=== PATIENT | female | born 1985 | race Two or more races ===

== ENCOUNTER 2020-05-16 17:28 | Outpatient (REF) | payer OTHER, SELFPAY | END 2020-05-16 17:29 | disposition home or self-care (01) | LOC: HO.LAB 17:28 | PROVIDERS: Visit Provider Internal Medicine | DX: Z20.828 Contact with and (suspected) exposure to other viral communicable diseases (principal) | CPT/HCPCS: C9803; U0003 ==

== ENCOUNTER 2020-07-18 11:10 | Outpatient (REF) | payer OTHER, SELFPAY | END 2020-07-18 11:11 | disposition home or self-care (01) | LOC: HO.LAB 11:10 | PROVIDERS: Visit Provider Internal Medicine | DX: Z20.822 Contact with and (suspected) exposure to COVID-19 (principal) | CPT/HCPCS: 36415; C9803; U0003 ==

== ENCOUNTER 2020-07-30 09:18 | Emergency (ER) | payer OTHER, SELFPAY ==
[2020-07-30 10:04] VITALS: BP 111/66; PULSE 70; RESP 16; TEMP 35.7; O2SAT 99; BMI 28.3
--- NOTE | 2020-07-30 10:26 | ED_ITS ---
HPI - Back Pain/Injury General Chief Complaint: Back Pain/Injury <Gil Coronel NP - Last Filed: 07/30/20 11:50> Stated Complaint: sciatic pain <Gil Coronel NP - Last Filed: 07/30/20 11:50> Time Seen by Provider: 07/30/20 10:18 <Gil Coronel NP - Last Filed: 07/30/20 11:50> Source: patient <Gil Coronel NP - Last Filed: 07/30/20 11:50> Mode of arrival: ambulatory <Gil Coronel NP - Last Filed: 07/30/20 11:50> Limitations: no limitations <Gil Coronel NP - Last Filed: 07/30/20 11:50> History of Present Illness HPI Narrative: Slip and fall on ice this morning resulting in pain in the right buttock/hip area. Denies any prodromal symptoms or other injury. <Gil Coronel NP - Last Filed: 07/30/20 11:50> MD elicited complaint: fall <Gil Coronel NP - Last Filed: 07/30/20 11:50> Pertinent past history: prior back pain <Gil Coronel NP - Last Filed: 07/30/20 11:50> Timing: intermittent <Gil Coronel NP - Last Filed: 07/30/20 11:50> Similar Symptoms Previously: Yes <Gil Coronel NP - Last Filed: 07/30/20 11:50> Radiation: none <Gil Coronel NP - Last Filed: 07/30/20 11:50> Relieving factors: none <Gil Coronel NP - Last Filed: 07/30/20 11:50> Associated symptoms: denies other symptoms <Gil Coronel NP - Last Filed: 07/30/20 11:50> Work related injury: No <Gil Coronel NP - Last Filed: 07/30/20 11:50> Related Data Home Medications: Previous Rx's Medication Instructions Recorded clonazepam 1 mg tablet 1 mg PO DAILY PRN 30 Days #30 tab 07/28/20 tramadol 50 mg tablet 50 mg PO TID PRN 30 Days #90 tab 07/28/20 cyclobenzaprine 5 mg PO TID PRN #14 tab 07/30/20 ibuprofen 800 mg PO Q8H PRN #15 tab 07/30/20 <Gilcristopher Coronel [employer] - Last Filed: 07/30/20 11:50> Allergies/Adverse Reactions: Allergies Allergy/AdvReac Type Severity Reaction Status Date / Time No Known Allergies Allergy Verified 07/07/20 08:45 [No Known Allergies*] <Gilcristopher Coronel [employer] - Last Filed: 07/30/20 11:50> Review of Systems Review of Systems: Constitutional: No Weight loss, No Fever, No Chills, No Night Sweats, No Fatigue, No Malaise ENT/Mouth: No Hearing loss, No Ear Pain, No Nasal Congestion, No Sinus Pain, No Hoarseness, No sore throat, No Rhinorrhea, No Swallowing Difficulty Eyes: Negative Cardiovascular: No Chest Pain, No SOB, No Dyspnea on Exertion, No Orthopnea, No Edema, No Palpitations Respiratory: Negative Gastrointestinal: Negative Genitourinary: Negative Musculoskeletal: No joint pain, No Myalgias, No Joint Swelling Skin: No Skin Lesions, No rash Neuro: No Weakness, No Numbness, No Paresthesias, No Loss of Consciousness, No Dizziness, No Headache Psych: Negative Heme/Lymph: Negative Endocrine: Negative <Gilcristopher Coronel NP - Last Filed: 07/30/20 11:50> Yes all other systems are reviewed and are negative <Gilcristopher Coronel [employer] - Last Filed: 07/30/20 11:50> PMFSH Past Medical History Medical History: Medical History (Updated 07/31/20 @ 00:00 by Alphonse Greco) Knee pain Sciatica <Gil Coronel [employer] - Last Filed: 07/30/20 11:50> Surgical History: Surgical History No pertinent past surgical history <Gilcristopher Coronel NP - Last Filed: 07/30/20 11:50> Family History Family History: Family History (Updated 06/11/20 @ 07:49 by Mecca Manzano [facility]) Father Medical history unknown Mother Hypertension Family/Other Hypertension Diabetes <Gilcristopher Coronel [employer] - Last Filed: 07/30/20 11:50> Physical Exam Vital Signs: Vital Signs: Last Vital Signs Temp 96.3 F L 07/30/20 10:04 Pulse 70 07/30/20 10:04 Resp 16 07/30/20 10:04 BP 111/66 07/30/20 10:04 Pulse Ox 99 07/30/20 10:04 Body Mass Index 28.3 Reviewed <Gil Coronel NP - Last Filed: 07/30/20 11:50> Vital Signs: Last Vital Signs Temp 96.3 F L 07/30/20 10:04 Pulse 70 07/30/20 10:04 Resp 16 07/30/20 10:04 BP 111/66 07/30/20 10:04 Pulse Ox 99 07/30/20 10:04 Body Mass Index 28.3 <Apollo Dietrich MD - Last Filed: 08/06/20 07:59> Const: General: cooperative and healthy appearing; No acute distress or intoxicated appearing <Gil Coronel NP - Last Filed: 07/30/20 11:50> Nutritional Appearance: average body habitus <Gil Coronel NP - Last Filed: 07/30/20 11:50> Orientation/consciousness: patient oriented x3 <Gil Coronel NP - Last Filed: 07/30/20 11:50> HENMT: Head: Yes normal to inspection <Gil Coronel NP - Last Filed: 07/30/20 11:50> Ears: hearing grossly normal bilaterally <Gil Coronel NP - Last Filed: 07/30/20 11:50> Eyes: General: appearance normal, both eyes and all related structures <Gil Coronel NP - Last Filed: 07/30/20 11:50> Visual Cook: normal visual cook by confrontation <Gil Coronel NP - Last Filed: 07/30/20 11:50> Neck: Neck: Yes normal visual inspection, No positive Brudzinski's sign, No positive Kernig's sign and No tender <Gil Coronel NP - Last Filed: 07/30/20 11:50> Thyroid: Thyroid normal <Gil Coronel NP - Last Filed: 07/30/20 11:50> Resp: Effort & Inspection: normal respiratory effort <Gil Coronel NP - Last Filed: 07/30/20 11:50> Cardio: Jugular venous distension: no JVD <[facility] CoronelJOSLYN ramirez - Last Filed: 07/30/20 11:50> GI: Inspection: Yes normal to inspection <[facility] CoronelJOSLYN ramirez - Last Filed: 07/30/20 11:50> Percussion: Yes normal to percussion <[facility] CoronelJOSLYN ramirez - Last Filed: 07/30/20 11:50> Auscultation: normal bowel sounds <Gil CoronelJOSLYN ramirez - Last Filed: 07/30/20 11:50> : General: Yes no CVA tenderness <[facility] CoronelJOSLYN ramirez - Last Filed: 07/30/20 11:50> Back/Spine/Pelvis: Back: no CVA tenderness <[facility] CoronelJOSLYN ramirez - Last Filed: 07/30/20 11:50> Skin: General skin exam: no rashes or lesions noted <[facility] JOSLYN Coronel - Last Filed: 07/30/20 11:50> Neuro: General: patient oriented x3 <Gilcristopher Coronel NP - Last Filed: 07/30/20 11:50> Extrem: General: Yes normal to inspection <[facility] CoronelJOSLYN ramirez - Last Filed: 07/30/20 11:50> Course Course Course Narrative: I have reviewed the chart <Apollo Dietrich MD - Last Filed: 08/06/20 07:59> MDM - Back Pain/Injury MDM Narrative Medical decision making narrative: Will nontoxic appearing. Ambulatory with steady straight gait. X-ray without acute findings. <Gilcristopher Coronel NP - Last Filed: 07/30/20 11:50> Differential Diagnosis Differential diagnosis: Likely strain of lumbar region; Unlikely lumbar radiculopathy, sciatica, renal colic, pyelonephritis, thoracic back pain, AAA and discitis <Gil JOSLYN Coronel - Last Filed: 07/30/20 11:50> Medical Records Attestation: I reviewed the patient's medical records. <Gilcristopher Coronel NP - Last Filed: 07/30/20 11:50> Lab Data Attestation: I reviewed the patient's lab results. <Gilcristopher Coronel NP - Last Filed: 07/30/20 11:50> Imaging Data Pelvis/hip: Radiologist's impression: [address], [place] [id number] ReportSigned Patient: Aziza AndersonMR#: [id number]: [id number]:[id number]/Sex: 34 / FADM Date: 07/30/20Loc: HO.EDAttending Dr: Ordering Physician: Gil Coronel NP Date of Service: 07/30/20 Procedure(s): XR hip RT w PEL1V Accession Number(s): [id number] cc: Gil Coronel NP~ EXAMINATION: XR HIP, RIGHT CLINICAL INFORMATION: Status post fall. COMPARISON: None TECHNIQUE: Two views of the right hip. AP view pelvis FINDINGS: AP pelvis: There is normal symmetry of bilateral hip joints and SI joints. No visible acute fracture, dislocation or lytic process seen. The soft tissues are normal. Right hip: No visible fracture, dislocation or subluxation seen. No bony abnormality. The joint spaces are intact. The soft tissues are normal. Incidental pelvic IUD noted. XR/XR hip RT w PEL1V IMPRESSION: Unremarkable right hip and pelvic exam. Dictated By:SAVANA PHILIPPE MDSigned By:<Electronically signed by SAVANA PHILIPPE MD in OV>07/30/20 1120 DD/ 1024TD/TT: Director Of Student Financial Aid: YOVANNY <Gil Coronel NP - Last Filed: 07/30/20 11:50> Discharge Plan Discharge Clinical Impression: Fall, Contusion <Gil Coronel NP - Last Filed: 07/30/20 11:50> Patient Disposition: Home, Self-Care <Gil Coronel NP - Last Filed: 07/30/20 11:50> Instructions: Contusion in Adults (ED), Fall Prevention (ED) <Gil Coronel NP - Last Filed: 07/30/20 11:50> Additional Instructions: Gentle stretching Warm compresses Take medication prescribed No drinking alcohol or operate a motor vehicle while taking muscle relaxants as the kentrell is sleepy and drowsy Return if any concerns or worsening symptoms otherwise follow-up as instructed Thank you <Gil Coronel NP - Last Filed: 07/30/20 11:50> Prescriptions: New ibuprofen 800 mg tablet 800 mg PO Q8H PRN (Reason: pain) Qty: 15 RF: 0 cyclobenzaprine 5 mg tablet 5 mg PO TID PRN (Reason: muscle spasm) Qty: 14 RF: 0 No Action tramadol 50 mg tablet 50 mg PO TID PRN (Reason: pain) 30 Days Qty: 90 RF: 0 clonazepam 1 mg tablet 1 mg PO DAILY PRN (Reason: anxiety) 30 Days Qty: 30 RF: 0 <Gil Coronel NP - Last Filed: 07/30/20 11:50> Referrals: Iftikhar Alvarez MD [Primary Care Provider] - 1 week <Gil Coronel NP - Last Filed: 07/30/20 11:50> Stand Alone Forms: Work/School Release <Gil Coronel NP - Last Filed: 07/30/20 11:50> Interventions: ED Discharge Assessment Last Done: 07/30/20 11:46 <Gil Coronel NP - Last Filed: 07/30/20 11:50> Discharge Date/Time: 07/30/20 11:46 <Gil Coronel NP - Last Filed: 07/30/20 11:50>
== END 2020-07-30 11:46 | disposition home or self-care (01) ==
PROVIDERS: Emergency Provider Emergency Medicine; PCP Internal Medicine
DX: S30.0XXA Contusion of lower back and pelvis, initial encounter (principal); M25.551 Pain in right hip; W00.0XXA Fall on same level due to ice and snow, initial encounter; Y93.9 Activity, unspecified; Y92.9 Unspecified place or not applicable; Y99.9 Unspecified external cause status; Z79.899 Other long term (current) drug therapy
CPT/HCPCS: 73502; 99283

== ENCOUNTER 2020-07-30 15:25 | Outpatient (REF) | payer OTHER, SELFPAY | END 2020-07-30 15:26 | disposition home or self-care (01) | LOC: HO.LAB 15:25 | PROVIDERS: PCP Internal Medicine; Visit Provider Internal Medicine | DX: Z20.822 Contact with and (suspected) exposure to COVID-19 (principal) | CPT/HCPCS: 36415; C9803; U0003 ==

== ENCOUNTER 2020-09-05 11:18 | Outpatient (REF) | payer OTHER, SELFPAY | END 2020-09-05 11:19 | disposition home or self-care (01) | LOC: HO.LAB 11:18 | PROVIDERS: Visit Provider Internal Medicine | DX: Z20.822 Contact with and (suspected) exposure to COVID-19 (principal) | CPT/HCPCS: 36415; C9803; U0003; U0005 ==

== ENCOUNTER 2020-09-15 16:58 | Emergency (ER) | payer OTHER, SELFPAY | END 2020-09-15 19:15 | disposition left against medical advice (07) | PROVIDERS: Emergency Provider Emergency Medicine; PCP Internal Medicine | DX: R50.9 Fever, unspecified (principal); M79.10 Myalgia, unspecified site | CPT/HCPCS: 99281 ==

== ENCOUNTER 2020-09-16 11:50 | Outpatient (REF) | payer OTHER, SELFPAY | END 2020-09-16 11:51 | disposition home or self-care (01) | LOC: HO.LAB 11:50 | PROVIDERS: Visit Provider Internal Medicine | DX: Z20.822 Contact with and (suspected) exposure to COVID-19 (principal) | CPT/HCPCS: 36415; C9803; U0003; U0005 ==

== ENCOUNTER 2020-09-17 11:32 | Outpatient (REF) | payer OTHER, SELFPAY ==
--- NOTE | ~2020-09-17 | XR_ITS ---
EXAMINATION: XR CHEST CLINICAL INFORMATION: Shortness of breath COMPARISON: Previous chest x-ray November 2016 TECHNIQUE: 2 views of the chest were obtained. FINDINGS: No significant abnormality is noted involving the heart, lungs, mediastinum, bony thorax or soft tissues. XR/XR chest 2V IMPRESSION: Unremarkable examination.
== END 2020-09-17 11:33 | disposition home or self-care (01) ==
LOC: HO.HMGCX 11:32
PROVIDERS: PCP Internal Medicine; Visit Provider Hospitalist
DX: R06.02 Shortness of breath (principal)
CPT/HCPCS: 71046

== ENCOUNTER 2020-11-05 17:51 | Emergency (ER) | payer OTHER, SELFPAY ==
[2020-11-05 18:33] VITALS: BP 139/82; PULSE 82; RESP 16; TEMP 36.3; O2SAT 100; BMI 29.2
--- NOTE | 2020-11-05 19:07 | ED_ITS ---
HPI - Back Pain/Injury General Chief Complaint: Back Pain/Injury Stated Complaint: SCIATICA PAIN Time Seen by Provider: 11/05/20 19:07 Source: patient Mode of arrival: ambulatory Limitations: no limitations History of Present Illness HPI Narrative: 34-year-old female with below in past medical history presents ambulatory via triage she reports 2 days of right buttock pain radiating down to the mid posterior thigh has history of similar pain with sciatica in the past.. Two days ago drove to [place] a [address] back and forth within the low car seat and felt like irritated her symptoms. Denies any leg swelling, chest pain or shortness of breath. No rash or swelling. MD elicited complaint: back pain Pertinent past history: prior back pain Onset (ago): day(s) Timing: intermittent Severity: moderate Similar Symptoms Previously: Yes Quality: aching Location: lumbar spine Radiation: other (Right that) Exacerbating factors: none Relieving factors: none Associated symptoms: denies other symptoms Work related injury: No Related Data Previous Rx's Medication Instructions Recorded cyclobenzaprine 5 mg PO TID PRN #14 tab 07/30/20 ibuprofen 800 mg PO Q8H PRN #15 tab 07/30/20 amoxicillin 875 mg-potassium 1 tab PO BID #20 tab 09/17/20 clavulanate 125 mg tablet oxycodone-acetaminophen 5 mg-325 1 tab PO Q6H PRN #12 tab 09/17/20 mg tablet prednisone 20 mg tablet 20 mg PO .COMPLEX #18 tab 09/17/20 clonazepam 1 mg tablet 1 mg PO DAILY PRN 30 Days #30 tab 09/30/20 tramadol 50 mg tablet 50 mg PO TID PRN 30 Days #90 tab 09/30/20 cyclobenzaprine 5 mg PO TID PRN #14 tab 11/05/20 ibuprofen 800 mg PO Q8H PRN #30 tab 11/05/20 prednisone 40 mg PO DAILY 3 Days #6 tab 11/05/20 Allergies Allergy/AdvReac Type Severity Reaction Status Date / Time No Known Allergies Allergy Verified 09/17/20 11:20 [No Known Allergies*] Review of Systems Review of Systems: Constitutional: No Weight loss, No Fever, No Chills, No Night Sweats, No Fatigue, No Malaise ENT/Mouth: No Hearing loss, No Ear Pain, No Nasal Congestion, No Sinus Pain, No Hoarseness, No sore throat, No Rhinorrhea, No Swallowing Difficulty Eyes: No Eye Pain, No Swelling, No Redness, No Foreign Body, No Discharge, No Vision Changes Cardiovascular: No Chest Pain, No SOB, No Dyspnea on Exertion, No Orthopnea, No Edema, No Palpitations Respiratory: No Cough, No Sputum, No Wheezing, No Smoke Exposure, No Dyspnea Gastrointestinal: No Nausea, No Vomiting, No Diarrhea, No Constipation, No abdominal Pain, No Hematochezia, No Melena Genitourinary: No Dysuria, No Urinary Frequency, No Hematuria, No Urinary Incontinence, No Urgency, No Flank Pain, No Urinary Flow Changes, No Hesitancy Musculoskeletal: No joint pain, No Myalgias, No Joint Swelling, as noted per HPI Skin: No Skin Lesions, No rash Neuro: No Weakness, No Numbness, No Paresthesias, No Loss of Consciousness, No Dizziness, No Headache Psych: No Social Issues Heme/Lymph: No Bruising, No Bleeding,No Lymphadenopathy Endocrine: No Polyuria, No Polydipsia, No Temperature Intolerance Yes all other systems are reviewed and are negative [facility] Past Medical History Medical History Knee pain Sciatica Surgical History No pertinent past surgical history Family History Family History Father Medical history unknown Mother Hypertension Family/Other Hypertension Diabetes Social History Social History Advance Directives: No Advance Directives Information Provided: Yes Patient : No Physical Exam Vital Signs: Vital Signs: Last Vital Signs Temp 97.4 F 11/05/20 18:33 Pulse 82 11/05/20 18:33 Resp 16 11/05/20 18:33 BP 139/82 11/05/20 18:33 Pulse Ox 100 11/05/20 18:33 Body Mass Index 29.2 Reviewed Const: General: cooperative and healthy appearing; No acute distress or intoxicated appearing Nutritional Appearance: average body habitus Orientation/consciousness: patient oriented x3 HENMT: Head: Yes normal to inspection Ears: hearing grossly normal bilaterally Eyes: General: appearance normal, both eyes and all related structures Visual Cook: normal visual cook by confrontation Neck: Neck: Yes normal visual inspection, No positive Brudzinski's sign, No positive Kernig's sign and No tender Thyroid: Thyroid normal Chest: Chest palpation & inspection: normal inspection of the chest Resp: Effort & Inspection: normal respiratory effort Auscultation: clear to auscultation bilaterally Cardio: Jugular venous distension: no JVD Rhythm: regular rhythm Heart sounds: S1 normal heart sound present and S2 normal heart sound present GI: Inspection: Yes normal to inspection Percussion: Yes normal to percussion Auscultation: normal bowel sounds : General: Yes no CVA tenderness Back/Spine/Pelvis: Other: Limitation exam within normal limits Back: no CVA tenderness Thoracic/Lumbar Spine: straight leg raise positive (Right at 65 degrees. Negative Homans.) Skin: General skin exam: no rashes or lesions noted Neuro: General: patient oriented x3 Extrem: General: Yes normal to inspection Course Course Course Narrative: No low back pain red flags. Feels better after Toradol will discharge home with cyclobenzaprine, prednisone and ibuprofen. Discharge Plan Discharge Clinical Impression: Strain of lumbar region Qualifiers: Encounter type: initial encounter Qualified Code(s): S39.012A - Strain of muscle, fascia and tendon of lower back, initial encounter Patient Disposition: Home, Self-Care Instructions: Sciatica (ED), Lower Back Exercises (ED) Additional Instructions: Warm compresses Gentle stretching Take medication prescribed Do not drink alcohol or drive while taking muscle relaxant Thank you Prescriptions: New ibuprofen 800 mg tablet 800 mg PO Q8H PRN (Reason: pain) Qty: 30 RF: 0 cyclobenzaprine 5 mg tablet 5 mg PO TID PRN (Reason: muscle spasm) Qty: 14 RF: 0 prednisone 20 mg tablet 40 mg PO DAILY 3 Days Qty: 6 RF: 0 No Action tramadol 50 mg tablet 50 mg PO TID PRN (Reason: pain) 30 Days Qty: 90 RF: 0 clonazepam 1 mg tablet 1 mg PO DAILY PRN (Reason: anxiety) 30 Days Qty: 30 RF: 0 ibuprofen 800 mg tablet 800 mg PO Q8H PRN (Reason: pain) Qty: 15 RF: 0 cyclobenzaprine 5 mg tablet 5 mg PO TID PRN (Reason: muscle spasm) Qty: 14 RF: 0 prednisone 20 mg tablet 20 mg PO .COMPLEX Qty: 18 RF: 0 amoxicillin-pot clavulanate [Augmentin] 875-125 mg tablet 1 tab PO BID Qty: 20 RF: 0 oxycodone-acetaminophen [Percocet] 5-325 mg tablet 1 tab PO Q6H PRN (Reason: pain) Qty: 12 RF: 0 Referrals: Iftikhar Alvarez MD [Primary Care Provider] - 5 days
[2020-11-05] MEDS: Ketorolac Tromethamine 30 MG/ML VIAL IM (19:34)
== END 2020-11-05 19:44 | disposition home or self-care (01) ==
PROVIDERS: Emergency Provider Internal Medicine; PCP Internal Medicine
DX: M54.41 Lumbago with sciatica, right side (principal); Z79.899 Other long term (current) drug therapy
CPT/HCPCS: 96372; 99284; J1885

== ENCOUNTER 2020-11-18 08:18 | Emergency (ER) | payer OTHER, SELFPAY ==
[2020-11-18 08:36] VITALS: BP 132/59; PULSE 80; RESP 16; TEMP 36.7; O2SAT 97; BMI 28.9
--- NOTE | 2020-11-18 08:49 | ED.ABDPAIN ---
HPI - Abdominal Pain General Chief Complaint: Abdominal Pain Stated Complaint: ABD PAIN N/V Time Seen by Provider: 11/18/20 08:48 Source: patient Mode of arrival: ambulatory Limitations: no limitations History of Present Illness HPI narrative: patient with abdominal pain in the epigastric area, followed by N/V/D. Never had COVID, not vaccinated. Patient denies pregancy. patient also describes some dysuria. MD elicited complaint: abdominal pain Pertinent past history: none Onset (ago): day(s) Pain Consistency: constant Location: epigastric Severity: moderate Quality: fullness Associated symptoms: nausea, vomiting and diarrhea Related Data Previous Rx's Medication Instructions Recorded cyclobenzaprine 5 mg PO TID PRN #14 tab 07/30/20 ibuprofen 800 mg PO Q8H PRN #15 tab 07/30/20 amoxicillin 875 mg-potassium 1 tab PO BID #20 tab 09/17/20 clavulanate 125 mg tablet oxycodone-acetaminophen 5 mg-325 1 tab PO Q6H PRN #12 tab 09/17/20 mg tablet prednisone 20 mg tablet 20 mg PO .COMPLEX #18 tab 09/17/20 cyclobenzaprine 5 mg PO TID PRN #14 tab 11/05/20 ibuprofen 800 mg PO Q8H PRN #30 tab 11/05/20 prednisone 40 mg PO DAILY 3 Days #6 tab 11/05/20 clonazepam 1 mg tablet 1 mg PO DAILY PRN 30 Days #30 tab 11/17/20 tramadol 50 mg tablet 50 mg PO TID PRN 30 Days #90 tab 11/17/20 ondansetron HCl [Zofran] 4 mg PO Q8H PRN #10 tab 11/18/20 pantoprazole [Protonix] 40 mg PO DAILY #20 tab 11/18/20 Allergies Allergy/AdvReac Type Severity Reaction Status Date / Time No Known Allergies Allergy Verified 09/17/20 11:20 [No Known Allergies*] Review of Systems Constitutional: Reports no additional constitutional complaints Eyes: Reports no additional eye complaints Denies dizziness Cardiovascular: Reports no additional cardiovascular complaints Respiratory: Reports as per HPI Gastrointestinal: Reports no additional gastrointestinal complaints Genitourinary: Reports no additional female genitourinary complaints Musculoskeletal: Reports no additional musculoskeletal complaints Skin/Breast: Denies rash Reports system reviewed and no additional complaints, except as documented, Denies dizziness and Denies Sensory deficit (Neuro) Psychiatric: Denies anxiety Physical Exam Vital Signs: Vital Signs: Last Vital Signs Temp 98.0 F 11/18/20 08:36 Pulse 78 11/18/20 08:51 Resp 16 11/18/20 08:36 BP 111/68 11/18/20 08:51 Pulse Ox 97 11/18/20 08:36 Body Mass Index 28.9 Const: General: healthy appearing Nutritional Appearance: average body habitus Orientation/consciousness: oriented to person and patient oriented x3 Limitations: no limitations HENMT: Head: Yes normal to inspection Ears: external ears normal General nose exam: Normal external nose present Mouth: Normal oral and palatal mucosa present and oropharynx normal Throat: Yes posterior oropharynx normal Eyes: General: appearance normal, both eyes and all related structures Neck: Other: supple Neck: Yes normal visual inspection Chest: Chest palpation & inspection: normal inspection of the chest Resp: Auscultation: clear to auscultation bilaterally Cardio: Jugular venous distension: no JVD Rate: regular rate Rhythm: regular rhythm Heart sounds: S1 normal heart sound present and S2 normal heart sound present GI: Other: mild left CVAT, mild epigastric pain Inspection: Yes normal to inspection Auscultation: normal bowel sounds : General: Yes no CVA tenderness Back/Spine/Pelvis: Back: no CVA tenderness Skin: General skin exam: no rashes or lesions noted Neuro: General: oriented to person and patient oriented x3 Cranial nerves: Yes CN's II-XII intact bilaterally Motor exam (neuro): 5/5 motor strength present throughout Sensory Exam: No Sensory deficit (Neuro) Extrem: General: Yes normal to inspection Psych: Appearance: grossly normal Course Course Course Narrative: abdomen soft, labs and covid negative. will dc on zofran and protonix for gastritis MDM - Abdominal Pain Differential Diagnosis Differential diagnosis: Likely abdominal pain and gastritis Lab Data Result diagrams: 11/18/20 09:07 Labs: Lab Results 11/18/20 11/18/20 11/18/20 Range/Units 09:07 09:07 09:07 Sodium 138 (135-145) mmol/L Potassium 4.2 (3.3-5.1) mmol/L Chloride 106 (96-108) mmol/L Carbon Dioxide 25 (22-29) mmol/L Anion Gap 11 L (12-20) BUN 8 L (9-16) mg/dL Creatinine 0.65 (0.5-1.4) mg/dL Estim Creat Clear Calc 105.2 Estimated GFR > 60 Random Glucose 89 (60-115) mg/dL Calcium 8.8 (8.4-10.2) mg/dL Total Bilirubin 0.5 (0.0-1.0) mg/dL Direct Bilirubin 0.2 (0.0-0.5) mg/dL AST 16 (5-31) U/L ALT 15 (0-31) U/L Alkaline Phosphatase 53 (39-117) U/L Total Protein 7.1 (6.5-8.0) g/dL Albumin 4.3 (3.5-5.0) g/dL Lipase 27 (8-78) U/L Urine Color YELLOW Urine Appearance CLEAR Urine pH 6.0 (5.0-8.0) Ur Specific [place] <= 1.005 (1.005-1.025) Urine Protein NEG (NEG-TRACE) MG/DL Urine Glucose (UA) NEG (NEG) MG/DL Urine Ketones NEG (NEG) MG/DL Urine Blood NEG (NEG) Urine Nitrite NEG (NEG) Ur Leukocyte Esterase NEG (NEG) Urine Test NEGATIVE (NEGATIVE) COVID-19 (AJ) (Negative) COVID-19 Clin Com 11/18/20 Range/Units 09:30 Sodium (135-145) mmol/L Potassium (3.3-5.1) mmol/L Chloride (96-108) mmol/L Carbon Dioxide (22-29) mmol/L Anion Gap (12-20) BUN (9-16) mg/dL Creatinine (0.5-1.4) mg/dL Estim Creat Clear Calc Estimated GFR Random Glucose (60-115) mg/dL Calcium (8.4-10.2) mg/dL Total Bilirubin (0.0-1.0) mg/dL Direct Bilirubin (0.0-0.5) mg/dL AST (5-31) U/L ALT (0-31) U/L Alkaline Phosphatase (39-117) U/L Total Protein (6.5-8.0) g/dL Albumin (3.5-5.0) g/dL Lipase (8-78) U/L Urine Color Urine Appearance Urine pH (5.0-8.0) Ur Specific [place] (1.005-1.025) Urine Protein (NEG-TRACE) MG/DL Urine Glucose (UA) (NEG) MG/DL Urine Ketones (NEG) MG/DL Urine Blood (NEG) Urine Nitrite (NEG) Ur Leukocyte Esterase (NEG) Urine Test (NEGATIVE) COVID-19 (AJ) Negative (Negative) COVID-19 Clin Com See Note Discharge Plan Discharge Clinical Impression: Gastroenteritis Patient Disposition: Home, Self-Care Instructions: Gastroenteritis (ED) Prescriptions: New ondansetron HCl [Zofran] 4 mg tablet 4 mg PO Q8H PRN (Reason: nausea and vomiting) Qty: 10 RF: 0 pantoprazole [Protonix] 40 mg tablet,delayed release (DR/EC) 40 mg PO DAILY Qty: 20 RF: 0 No Action tramadol 50 mg tablet 50 mg PO TID PRN (Reason: pain) 30 Days Qty: 90 RF: 0 clonazepam 1 mg tablet 1 mg PO DAILY PRN (Reason: anxiety) 30 Days Qty: 30 RF: 0 ibuprofen 800 mg tablet 800 mg PO Q8H PRN (Reason: pain) Qty: 15 RF: 0 cyclobenzaprine 5 mg tablet 5 mg PO TID PRN (Reason: muscle spasm) Qty: 14 RF: 0 ibuprofen 800 mg tablet 800 mg PO Q8H PRN (Reason: pain) Qty: 30 RF: 0 cyclobenzaprine 5 mg tablet 5 mg PO TID PRN (Reason: muscle spasm) Qty: 14 RF: 0 prednisone 20 mg tablet 40 mg PO DAILY 3 Days Qty: 6 RF: 0 prednisone 20 mg tablet 20 mg PO .COMPLEX Qty: 18 RF: 0 amoxicillin-pot clavulanate [Augmentin] 875-125 mg tablet 1 tab PO BID Qty: 20 RF: 0 oxycodone-acetaminophen [Percocet] 5-325 mg tablet 1 tab PO Q6H PRN (Reason: pain) Qty: 12 RF: 0 PMFSH Past Medical History Medical History Knee pain Sciatica Surgical History No pertinent past surgical history Family History Family History Father Medical history unknown Mother Hypertension Family/Other Hypertension Diabetes Social History Social History Alcohol intake: never Smoking Status: Current every day smoker Substance Use Type: Marijuana Substance Use Frequency: Occasionally Advance Directives: Yes Advance Directives Information Provided: Yes Advance Directives on File: No Patient : No
[2020-11-18 08:51] VITALS: BP 111/68; PULSE 78
[2020-11-18] MEDS: Pantoprazole Sodium 40 MG/10 ML VIAL IVPUSH (09:14)
[2020-11-18 09:16] LABS: Glucose Urine UA NEG (NEG); Leukocyte Esterase Urine NEG (NEG); Nitrite Urine NEG (NEG); Specific Gravity - Urine <= 1.005 (1.005-1.025); Urine Blood NEG (NEG); Urine Ketones NEG (NEG); Urine Protein NEG (NEG-TRACE)
[2020-11-18] MEDS: 0.9 % Sodium Chloride 1,000 ML 125 ML IVCONT (09:17)
[2020-11-18] MEDS: ondansetron HCL 4 MG/2 ML VIAL IVPUSH (09:17)
[2020-11-18 09:18] LABS: Appearance Urine CLEAR; Color Urine YELLOW; UPreg QC Valid YES; Urine Pregnancy NEGATIVE (NEGATIVE)
[2020-11-18 09:38] LABS: Anion Gap 11 (12-20); Bilirubin Direct 0.2 mg/dL (0.0-0.5); Bilirubin Total 0.5 mg/dL (0.0-1.0); Blood Urea Nitrogen 8 mg/dL (9-16); Calcium 8.8 mg/dL (8.4-10.2); Carbon Dioxide 25 mmol/L (22-29); Chloride 106 mmol/L (96-108); Creatinine Clr Calc Pharmacy 105.2; Estimated Glomerular Filt Rate > 60; Glucose Random 89 mg/dL (60-115); Potassium 4.2 mmol/L (3.3-5.1); Sodium 138 mmol/L (135-145)
[2020-11-18 09:39] LABS: Alanine Aminotransferase 15 U/L (0-31); Albumin Level 4.3 g/dL (3.5-5.0); Alkaline Phosphatase 53 U/L (39-117); Aspartate Amino Transferase 16 U/L (5-31); Lipase 27 U/L (8-78); Total Protein 7.1 g/dL (6.5-8.0)
[2020-11-18 09:53] LABS: COVID-19 Test Negative (Negative); IDNOW Serial# 9DD0AD1C
== END 2020-11-18 10:30 | disposition home or self-care (01) ==
PROVIDERS: Emergency Provider Emergency Medicine; PCP Internal Medicine
DX: K52.9 Noninfective gastroenteritis and colitis, unspecified (principal); R10.13 Epigastric pain; Z20.822 Contact with and (suspected) exposure to COVID-19; F17.200 Nicotine dependence, unspecified, uncomplicated; F12.90 Cannabis use, unspecified, uncomplicated
CPT/HCPCS: 36415; 80048; 80076; 81003; 81025; 83690; 87635; 96361; 96374; 96375; 99284; J2405

== ENCOUNTER 2020-11-24 21:52 | Emergency (ER) | payer OTHER, SELFPAY ==
--- NOTE | ~2020-11-24 | XR_ITS ---
EXAMINATION: XR CHEST CLINICAL INFORMATION: Chest pain COMPARISON: 11/18/2016 TECHNIQUE: Frontal view of the chest was obtained. FINDINGS: No significant abnormality is noted involving the heart, lungs, mediastinum, bony thorax or soft tissues. XR/XR chest 1V IMPRESSION: Unremarkable examination.
[2020-11-24 21:57] VITALS: BP 127/76; PULSE 71; RESP 16; TEMP 37.4; O2SAT 99; BMI 28.3
--- NOTE | 2020-11-24 22:03 | ECG_ITS ---
Test Reason : CP Blood Pressure : / mmHG Vent. Rate : 068 BPM Atrial Rate : 068 BPM P-R Int : 134 ms QRS Dur : 086 ms QT Int : 376 ms P-R-T Axes : 035 062 040 degrees QTc Int : 399 ms Normal sinus rhythm Normal ECG When compared to the previous EKG of 18 nov 2016, no significant change Referred By: Arianna Machado Electronically Signed By:VALENCIA TOBIN
[2020-11-24 22:23] LABS: MANUAL DIFF FLAG NO
[2020-11-24 22:24] LABS: Basophils Percent Auto 0.3 % (0-2); Eosinophils Absolute Auto 0.2 X10*3/uL (0.0-0.4); Eosinophils Percent Auto 1.7 % (0-4); Hematocrit 36.6 % (37-47); Hemoglobin 12.6 g/dl (12.0-16.0); Imm Gran Abs Auto 0.02 X10*3/uL (0.00-0.03); Imm Gran Pct Auto 0.2 % (0.0-0.4); Lymphocytes Absolute Auto 3.1 X10*3/uL (1.2-4.9); Lymphocytes Percent Auto 33.1 % (20-40); Mean Corpuscular HGB Conc 34.4 g/dl (31.0-35.0); Mean Corpuscular Hemoglobin 29.7 pg (27.0-33.0); Mean Corpuscular Volume 86.3 fL (80-98); Mean Platelet Volume 12.5 fL (9.4-12.3); Monocytes Absolute Auto 0.7 X10*3/uL (0.1-1.2); Monocytes Percent Auto 7.6 % (2-11); Neutrophils Absolute Auto 5.3 X10*3/uL (2.0-8.3); Neutrophils Percent Auto 57.1 % (45-73); Platelet Count 180 X10*3/uL (160-400); Red Blood Count 4.24 X10*6/uL (4.20-5.50); Red Cell Distribution Width 12.9 % (11.0-16.0); White Blood Count 9.3 X10*3/uL (4.8-10.8)
[2020-11-24 22:50] LABS: Anion Gap 12 (12-20); Blood Urea Nitrogen 9 mg/dL (9-16); Calcium 8.8 mg/dL (8.4-10.2); Carbon Dioxide 22 mmol/L (22-29); Chloride 107 mmol/L (96-108); Creatinine Clr Calc Pharmacy 96.7; Estimated Glomerular Filt Rate > 60; Glucose Random 98 mg/dL (60-115); Potassium 3.2 mmol/L (3.3-5.1); Sodium 138 mmol/L (135-145)
[2020-11-24 22:56] LABS: Troponin-I High Sensitivity < 3.5 ng/L (<3.5-17.0)
--- NOTE | 2020-11-24 23:55 | ED.CHESTPAIN ---
HPI - Chest Pain General Chief Complaint: Chest Pain Stated Complaint: chest pain Time Seen by Provider: 11/24/20 23:55 Source: patient Mode of arrival: ambulatory Limitations: no limitations History of Present Illness HPI narrative: Patient with lifting heavy boxes at work noticed stabbing chest pain last 3 weeks off and on no shortness of breath no radiation of pain no known coronary artery disease patient has history of anxiety Related Data Previous Rx's Medication Instructions Recorded oxycodone-acetaminophen 5 mg-325 1 tab PO Q6H PRN #12 tab 09/17/20 mg tablet cyclobenzaprine 5 mg PO TID PRN #14 tab 11/05/20 ibuprofen 800 mg PO Q8H PRN #30 tab 11/05/20 clonazepam 1 mg tablet 1 mg PO DAILY PRN 30 Days #30 tab 11/17/20 tramadol 50 mg tablet 50 mg PO TID PRN 30 Days #90 tab 11/17/20 ondansetron HCl [Zofran] 4 mg PO Q8H PRN #10 tab 11/18/20 pantoprazole [Protonix] 40 mg PO DAILY #20 tab 11/18/20 pantoprazole 40 mg tablet,delayed 40 mg PO DAILY 30 Days #30 tab 11/21/20 release sertraline 50 mg tablet 50 mg PO QAM 30 Days #30 tab 11/21/20 ibuprofen 600 mg PO Q6H PRN #20 tab 11/25/20 Allergies Allergy/AdvReac Type Severity Reaction Status Date / Time No Known Allergies Allergy Verified 11/23/20 16:42 [No Known Allergies*] Review of Systems Review of Systems: Yes all other systems are reviewed and are negative [facility] Past Medical History Medical History Anxiety Gastritis Knee pain Overweight (BMI 25.0-29.9) Palpitations Sciatica Smoker Surgical History No pertinent past surgical history Family History Family History Father Medical history unknown Mother Hypertension Family/Other Hypertension Diabetes Social History Social History Alcohol intake: never Cigarettes Per Day: 5 Substance Use Type: Marijuana Advance Directives: No Advance Directives Information Provided: No Patient : No Physical Exam Vital Signs: Vital Signs: Last Vital Signs Temp 99.4 F 11/24/20 21:57 Pulse 71 11/24/20 21:57 Resp 16 11/24/20 21:57 BP 127/76 11/24/20 21:57 Pulse Ox 99 11/24/20 21:57 Body Mass Index 28.3 Appearance: Alert. Oriented X3. No acute distress. Eyes: PERRLA, No Nystagmus ENT: Pharynx normal. Oral Mucosa moist Neck: Normal inspection. Neck supple. CVS: Normal heart rate and rhythm. Pulses normal. Respiratory: No respiratory distress. Equal air entry bilateral, no wheezing/rales/rhonchi Abdomen: Soft and nontender. Bowel sounds are present, no mass palpable, no CVA tenderness Skin: Skin warm and dry. Normal skin color. Normal skin turgor. Extremities: No lower extremity edema. No calf tenderness Neuro: Oriented X 3. No motor deficit. No sensory deficit MDM - Chest Pain MDM Narrative Medical decision making narrative: Patient with 3 weeks of pain clinically musculoskeletal Lab Data Attestation: I reviewed the patient's lab results. Result diagrams: 11/24/20 22:17 11/24/20 22:17 Labs: Lab Results 11/24/20 11/24/20 11/24/20 Range/Units 22:17 22:17 22:17 WBC 9.3 (4.8-10.8) X10*3/uL RBC 4.24 (4.20-5.50) X10*6/uL Hgb 12.6 (12.0-16.0) g/dl Hct 36.6 L (37-47) % MCV 86.3 (80-98) fL MCH 29.7 (27.0-33.0) pg MCHC 34.4 (31.0-35.0) g/dl RDW 12.9 (11.0-16.0) % Plt Count 180 (160-400) X10*3/uL MPV 12.5 H (9.4-12.3) fL Immature Gran % (Auto) 0.2 (0.0-0.4) % Neut % (Auto) 57.1 (45-73) % Lymph % (Auto) 33.1 (20-40) % [place] % (Auto) 7.6 (2-11) % Eos % (Auto) 1.7 (0-4) % Baso % (Auto) 0.3 (0-2) % Lymph # (Auto) 3.1 (1.2-4.9) X10*3/uL [place] # (Auto) 0.7 (0.1-1.2) X10*3/uL Eos # (Auto) 0.2 (0.0-0.4) X10*3/uL Baso # (Auto) 0.0 (0.0-0.2) X10*3/uL Abs Immat Gran (auto) 0.02 (0.00-0.03) X10*3/uL Absolute Neuts (auto) 5.3 (2.0-8.3) X10*3/uL Absolute Nucleated RBC 0.000 (0.0-0.012) X10*3/uL Nucleated RBC % (auto) 0.0 (0.0-0.2) /100WBC Hold Blue Top SEE NOTE Sodium 138 (135-145) mmol/L Potassium 3.2 L D (3.3-5.1) mmol/L Chloride 107 (96-108) mmol/L Carbon Dioxide 22 (22-29) mmol/L Anion Gap 12 (12-20) BUN 9 (9-16) mg/dL Creatinine 0.70 (0.5-1.4) mg/dL Estim Creat Clear Calc 96.7 Estimated GFR > 60 Random Glucose 98 (60-115) mg/dL Calcium 8.8 (8.4-10.2) mg/dL Troponin I High Sens (<3.5-17.0) ng/L 11/24/20 Range/Units 22:17 WBC (4.8-10.8) X10*3/uL RBC (4.20-5.50) X10*6/uL Hgb (12.0-16.0) g/dl Hct (37-47) % MCV (80-98) fL MCH (27.0-33.0) pg MCHC (31.0-35.0) g/dl RDW (11.0-16.0) % Plt Count (160-400) X10*3/uL MPV (9.4-12.3) fL Immature Gran % (Auto) (0.0-0.4) % Neut % (Auto) (45-73) % Lymph % (Auto) (20-40) % [place] % (Auto) (2-11) % Eos % (Auto) (0-4) % Baso % (Auto) (0-2) % Lymph # (Auto) (1.2-4.9) X10*3/uL [place] # (Auto) (0.1-1.2) X10*3/uL Eos # (Auto) (0.0-0.4) X10*3/uL Baso # (Auto) (0.0-0.2) X10*3/uL Abs Immat Gran (auto) (0.00-0.03) X10*3/uL Absolute Neuts (auto) (2.0-8.3) X10*3/uL Absolute Nucleated RBC (0.0-0.012) X10*3/uL Nucleated RBC % (auto) (0.0-0.2) /100WBC Hold Blue Top Sodium (135-145) mmol/L Potassium (3.3-5.1) mmol/L Chloride (96-108) mmol/L Carbon Dioxide (22-29) mmol/L Anion Gap (12-20) BUN (9-16) mg/dL Creatinine (0.5-1.4) mg/dL Estim Creat Clear Calc Estimated GFR Random Glucose (60-115) mg/dL Calcium (8.4-10.2) mg/dL Troponin I High Sens < 3.5 (<3.5-17.0) ng/L ECG Data ECG #1: Attestation: I personally reviewed and interpreted this ECG as follows: Interpretation: Normal sinus rhythm with heart rate 68 beats per minute normal intervals normal axis impression normal EKG Discharge Plan Discharge Clinical Impression: Acute costochondritis Patient Disposition: Home, Self-Care Instructions: Costochondritis (ED) Additional Instructions: Take pain medication as advised your pain is from inflammation of the cartilage not from the heart Prescriptions: New ibuprofen 600 mg tablet 600 mg PO Q6H PRN (Reason: pain) Qty: 20 RF: 0 No Action tramadol 50 mg tablet 50 mg PO TID PRN (Reason: pain) 30 Days Qty: 90 RF: 0 clonazepam 1 mg tablet 1 mg PO DAILY PRN (Reason: anxiety) 30 Days Qty: 30 RF: 0 ibuprofen 800 mg tablet 800 mg PO Q8H PRN (Reason: pain) Qty: 30 RF: 0 cyclobenzaprine 5 mg tablet 5 mg PO TID PRN (Reason: muscle spasm) Qty: 14 RF: 0 ondansetron HCl [Zofran] 4 mg tablet 4 mg PO Q8H PRN (Reason: nausea and vomiting) Qty: 10 RF: 0 pantoprazole [Protonix] 40 mg tablet,delayed release (DR/EC) 40 mg PO DAILY Qty: 20 RF: 0 oxycodone-acetaminophen [Percocet] 5-325 mg tablet 1 tab PO Q6H PRN (Reason: pain) Qty: 12 RF: 0 pantoprazole 40 mg tablet,delayed release (DR/EC) 40 mg PO DAILY 30 Days Qty: 30 RF: 3 sertraline 50 mg tablet 50 mg PO QAM 30 Days Qty: 30 RF: 3 Stand Alone Forms: Work/School Release Interventions: ED Discharge Assessment Last Done: 11/25/20 00:22 Discharge Date/Time: 11/25/20 00:23
[2020-11-25] MEDS: Ibuprofen 600 MG TABLET PO (00:22)
== END 2020-11-25 00:23 | disposition home or self-care (01) ==
PROVIDERS: Student in an Organized Health Care Education/Training Program; Emergency Provider Internal Medicine
DX: M94.0 Chondrocostal junction syndrome [Tietze] (principal); F41.9 Anxiety disorder, unspecified; F17.210 Nicotine dependence, cigarettes, uncomplicated; F12.90 Cannabis use, unspecified, uncomplicated
CPT/HCPCS: 36415; 71045; 80048; 84484; 85025; 93005; 99283; 99284

== ENCOUNTER → 2021-02-03 12:37 | Outpatient (BNVA) | payer OTHER, SELFPAY | PROVIDERS: PCP Internal Medicine; Referring Provider Internal Medicine; Visit Provider Internal Medicine | DX: R00.2 Palpitations (principal); R07.2 Precordial pain | CPT/HCPCS: 99202 ==

== ENCOUNTER → 2021-03-20 09:12 | Outpatient (REF) | payer OTHER, SELFPAY ==
--- NOTE | 2021-03-20 09:19 | CA_ITS ---
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 - Normal right ventricular cavity size and systolic function. - No significant valvular or pericardial pathology. Findings Left Ventricle Normal left ventricular size, thickness, systolic function, and wall motion. The visually estimated ejection fraction is between 55-60%. Diastolic function is normal for age. Right Ventricle Normal right ventricular cavity size and systolic function. Atria Both atria are normal in size. Aortic Valve Normal aortic valve structure and function. There is no aortic valve stenosis. There is no aortic valve regurgitation. Mitral Valve Normal mitral valve structure and function. There is trace mitral valve regurgitation. There is no mitral valve stenosis. Pulmonic Valve Normal pulmonic valve structure and function. There is no pulmonic valve regurgitation. Tricuspid Valve Normal tricuspid valve structure and function. There is trace tricuspid valve regurgitation. Tricuspid regurgitation envelope is inadequate for calculation of right ventricular systolic pressure. Normal right atrial pressure. Great Vessels All visible segments of the aorta are normal in size. The visualized portions of the pulmonary artery and branches are normal. Venous The inferior vena cava is normal in size and collapses greater than 50% with inspiration. Pericardium/Pleural Normal pericardial structure. There is no evidence of pericardial effusion. Prior Study Comparison No prior study available for comparison. Measurements 2D Linear Measurements IVSd: 0.72 0.6-0.9/0.6-1.0 cm LVIDd: 4.21 3.9-5.3/4.2-5.9 cm LVIDd Index: 2.60 2.4-3.2/2.2-3.1 cm/m2 LVIDs: 2.93 2.0-3.6 cm LVPWd: 0.84 0.7-1.1 cm Ao Root: 2.70 2.1-3.5 cm LA Diam: 3.10 2.7-3.8/3.0-4.0 cm LAIDs Index: 1.91 1.5-2.3 cm/m2 LV Mass: 122.60 67-162/88-224 g LV Mass Index: 75.68 43-95/49-115 g/m2 LVOT Diam: 2.00 3.0+(-)1.3 cm 2D Systolic Function EF 4C: 47.80 >55% EF 2C: 55.40 >55% EF BiP: 52.00 >55% Mitral Valve MV Pk E: 1.08 MV PK A: 0.61 MV Decel Time: 161.00 E/A: 1.80 E'Lateral: 14.80 E'Medial: 10.80 E/E' Med: 10.00 E/E' Lat: 7.30 PHT: 47.00 MVA PHT: 4.68 Decel Sedgwick: 6.69 Aortic Valve AoV Pk Godfrey: 1.28 AoV Mn Godfrey: 0.85 AoV VTI: 0.28 AoV Pk Grad: 7.00 Aov Mn Grad: 3.00 MAITE Cont.VTI: 2.12 LVOT LVOT Pk Godfrey: 0.83 LVOT Mn Godfrey: 0.61 LVOT VTI: 0.19 LVOT Pk Grad: 3.00 LVOT Mn Grad: 2.00 LVOT Diam: 2.00 LVOT Area: 3.14 Diastolic Function MV Pk E: 1.08 MV Pk A: 0.61 E/A: 1.80 E'Medial: 10.80 E/E' Med: 10.00 E' Laterial: 14.80 E/E' Lat: 7.30 Right Ventricle TAPSE (mm): 2.27 TVS' Godfrey: 12.80 Tricuspid Valve RA Press: 3.00 Great Vessels Aorta Ao Root-2D: 2.70 2.0-3.7 cm Ao Asc: 2.50 2.1-3.4 cm Updated in Other Vendor System with Status of Final Carlyle Rashid MD electronically signed on 03/23/2021 9:02:13 AM with status of Final
== END ==
LOC: HO.CARD 09:12
PROVIDERS: PCP Internal Medicine; Visit Provider Internal Medicine
DX: R00.2 Palpitations (principal)
CPT/HCPCS: 93306

== ENCOUNTER 2021-03-21 16:47 | Emergency (ER) | payer OTHER, SELFPAY ==
[2021-03-21 16:58] VITALS: BP 137/63; PULSE 85; RESP 16; TEMP 36.6; O2SAT 98; BMI 27.9
--- NOTE | 2021-03-21 18:27 | ED.GENADULT ---
HPI - General Adult General Chief complaint: General Medical Stated complaint: Sciatica Time Seen by Provider: 03/21/21 18:24 Source: patient Limitations: no limitations History of Present Illness HPI narrative: This is a 35-year-old female with a history of sciatica who complains of worsened lower back pain radiating down both of her posterior thighs since yesterday. The patient denies any injury. She denies any weakness to her legs or feet. She does have some tingling sensation in her upper legs. She has tried Tylenol and tried a Percocet off the street, as well as icy Hot, with minimal relief. She denies any urinary symptoms or difficulty with urination. She denies abdominal pain. She does have a primary care physician and states she can get a ride home Related Data Previous Rx's Medication Instructions Recorded tramadol 50 mg tablet 50 mg PO TID PRN 30 Days #90 tab 01/28/21 gabapentin 300 mg capsule 300 mg PO TID 30 Days #90 cap 02/16/21 clonazepam 1 mg tablet 1 mg PO DAILY PRN 30 Days #30 tab 02/26/21 cyclobenzaprine 10 mg tablet 10 mg PO TID PRN #20 tab 03/21/21 oxycodone-acetaminophen 7.5 mg-325 1 tab PO Q6H PRN #10 tab 03/21/21 mg tablet (Percocet) Allergies Allergy/AdvReac Type Severity Reaction Status Date / Time No Known Allergies Allergy Verified 02/03/21 12:52 [No Known Allergies*] Review of Systems Constitutional: Constitutional: Reports as per HPI Cardiovascular: Cardiovascular: Reports no additional cardiovascular complaints Respiratory: Respiratory: Reports no additional respiratory complaints Gastrointestinal: Gastrointestinal: Reports no additional gastrointestinal complaints Genitourinary: Genitourinary: Reports no additional female genitourinary complaints Musculoskeletal: Musculoskeletal: Reports abnormal gait, Reports back pain and Reports radiating pain into limb Neurologic: Reports abnormal gait and Denies Sensory deficit (Neuro) [facility] Past Medical History Medical History Anxiety Gastritis Knee pain Overweight (BMI 25.0-29.9) Palpitations Sciatica Smoker Surgical History No pertinent past surgical history Family History Family History Father Medical history unknown Mother Hypertension Family/Other Hypertension Diabetes Social History Social History (Updated 02/03/21 @ 12:53 by LEANNA Alcocer) Alcohol intake: never Patient Tobacco Use Status: Current everyday Tobacco user Cigarettes Per Day: 10 Substance Use Type: Marijuana Advance Directives: No Advance Directives Information Provided: No Physical Exam Vital Signs: Vital Signs: Last Vital Signs Temp 97.8 F 03/21/21 16:58 Pulse 85 03/21/21 16:58 Resp 17 03/21/21 18:51 BP 133/75 03/21/21 19:18 Pulse Ox 100 03/21/21 18:51 Body Mass Index 27.9 Const: Other: Patient initially standing, able to ambulate and set on gurney, does not appear to be in great discomfort General: cooperative, no acute distress and alert Orientation/consciousness: patient oriented x3 HENMT: Head: Yes normal to inspection Eyes: General: appearance normal, both eyes and all related structures Eyelids: Yes eyelids normal Conjunctivae: conjunctivae normal Pupils: Equal, round and reactive pupils present Neck: Neck: Yes normal visual inspection and Yes supple Chest: Chest palpation & inspection: normal inspection of the chest Resp: Effort & Inspection: normal respiratory effort Auscultation: clear to auscultation bilaterally Cardio: Rate: regular rate Rhythm: regular rhythm Heart sounds: S1 normal heart sound present, S2 normal heart sound present, no gallops, no murmurs and no rubs GI: Palpation (GI): Soft to palpation, nontender and Other GI palpation findings present (Non-distended) Auscultation: normal bowel sounds : General: Yes no CVA tenderness Back/Spine/Pelvis: Other: Tender lumbar back and upper buttocks diffusely, straight leg test positive at about 45 degrees bilaterally, while sitting on the gurney Back: no CVA tenderness Skin: General skin exam: no rashes or lesions noted Neuro: General: patient oriented x3, no focal motor deficits and CN's II-XI intact bilaterally Cranial nerves: Yes Equal, round and reactive pupils present Cognition (Neuro): normal cognition Motor exam (neuro): 5/5 motor strength present throughout Sensory Exam: No Sensory deficit (Neuro) Extrem: General: Yes normal to inspection and Yes no pedal edema Psych: Appearance: grossly normal Affect: normal affect Medical Decision Making [facility] Narrative Medical decision making narrative: Patient complains bilateral sciatica type pain, which she has had previously. Patient was initially standing and ambulating. No evidence of neurologic compromise to the lower extremity. Recommend muscle relaxant, anti-inflammatory medicine pain medicine. Ice pack and lidocaine patches may also be helpful Discharge Plan Discharge Clinical Impression: Sciatica Patient Disposition: Home, Self-Care Instructions: Sciatica (ED) Additional Instructions: Use an ice pack off and on. Use a lidocaine patch to your lower back, available at the pharmacy. He can use 2 at a time, 1 on each side of your upper buttock/lower back area. Use ibuprofen, Flexeril, and Percocet as prescribed. Follow-up with primary care physician. Prescriptions: New cyclobenzaprine 10 mg tablet 10 mg PO TID PRN (Reason: muscle spasm) Qty: 20 RF: 0 oxycodone-acetaminophen [Percocet] 7.5-325 mg tablet 1 tab PO Q6H PRN (Reason: pain) Qty: 10 RF: 0 No Action tramadol 50 mg tablet 50 mg PO TID PRN (Reason: pain) 30 Days Qty: 90 RF: 0 gabapentin 300 mg capsule 300 mg PO TID 30 Days Qty: 90 RF: 1 clonazepam 1 mg tablet 1 mg PO DAILY PRN (Reason: anxiety) 30 Days Qty: 30 RF: 0 Interventions: ED Discharge Assessment Last Done: 03/21/21 19:34 Discharge Date/Time: 03/21/21 19:36
[2021-03-21 18:49] VITALS: RESP 17
[2021-03-21] MEDS: Ketorolac Tromethamine 15 MG/ML VIAL 30 MG IM (18:49)
[2021-03-21] MEDS: HYDROmorphone HCl 1 MG/ML SYRINGE IM (18:49)
[2021-03-21] MEDS: diazePAM 5 MG TABLET PO (18:50)
[2021-03-21 18:51] VITALS: BP 108/53; RESP 17; O2SAT 100
[2021-03-21 19:18] VITALS: BP 133/75
== END 2021-03-21 19:36 | disposition home or self-care (01) ==
PROVIDERS: Emergency Provider Emergency Medicine; PCP Internal Medicine
DX: M54.41 Lumbago with sciatica, right side (principal); M54.42 Lumbago with sciatica, left side; F17.200 Nicotine dependence, unspecified, uncomplicated; Z71.6 Tobacco abuse counseling; Z79.899 Other long term (current) drug therapy
CPT/HCPCS: 96372; 99284; J1170; J1885

== ENCOUNTER 2021-04-30 20:33 | Emergency (ER) | payer OTHER, SELFPAY ==
[2021-04-30 20:37] VITALS: BP 145/73; PULSE 82; RESP 18; TEMP 36.7; O2SAT 100; BMI 28.9
--- NOTE | 2021-04-30 21:02 | ED.BACK ---
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 Mode of arrival: ambulatory Limitations: no limitations History of Present Illness MD elicited complaint: back pain and back injury Pertinent past history: prior back pain and recent trauma Onset (ago): hour(s) Severity: moderate Similar Symptoms Previously: Yes Quality: dull Location: lumbar spine Radiation: buttocks, left upper leg and right upper leg Exacerbating factors: movement and walking Relieving factors: none Context: while lifting Associated symptoms: denies other symptoms Work related injury: Yes Related Data Previous Rx's Medication Instructions Recorded cyclobenzaprine 10 mg tablet 10 mg PO TID PRN #20 tab 03/21/21 oxycodone-acetaminophen 7.5 mg-325 1 tab PO Q6H PRN #10 tab 03/21/21 mg tablet (Percocet) clonazepam 1 mg tablet 1 mg PO DAILY PRN 30 Days #30 tab 04/08/21 gabapentin 300 mg capsule 300 mg PO TID 30 Days #90 cap 04/08/21 tramadol 50 mg tablet 50 mg PO TID PRN 30 Days #90 tab 04/08/21 diazepam 5 mg tablet (Valium) 5 mg PO TID PRN #10 tab 04/30/21 ibuprofen 600 mg tablet 600 mg PO Q6H PRN #30 tab 04/30/21 lidocaine 4 % topical patch 1 patch TOPICAL DAILY PRN #10 ea 04/30/21 Allergies Allergy/AdvReac Type Severity Reaction Status Date / Time No Known Allergies Allergy Verified 04/30/21 20:37 [No Known Allergies*] Review of Systems Review of Systems: Constitutional : No Weight loss, No Fever, No Chills, ENT/Mouth : No Hearing loss, No Ear Pain, No Nasal Congestion, No Sinus Pain, No Hoarseness, No sore throat, No Rhinorrhea, No Swallowing Difficulty Cardiovascular : No Chest Pain, No SOB Respiratory : No Cough, No Dyspnea Gastrointestinal : No Nausea, No Vomiting, No Diarrhea, No abdominal Pain, No Hematochezia, No Melena Genitourinary : No Dysuria, No Urinary Frequency, No Hematuria, No Urinary Incontinence, Musculoskeletal : positive back pain Skin : No Skin Lesions, No rash Neuro : No Weakness, No Numbness, No Paresthesias, no loss of bowel or bladder incontinence, no saddle anesthesia [facility] Past Medical History Attestation statement: The following information was validated with the patient. Medical History Anxiety Gastritis Knee pain Overweight (BMI 25.0-29.9) Palpitations Sciatica Smoker Surgical History No pertinent past surgical history Family History Family History Father Medical history unknown Mother Hypertension Family/Other Hypertension Diabetes Social History Social History Alcohol intake: never Patient Tobacco Use Status: Current everyday Tobacco user Cigarettes Per Day: 10 Substance Use Type: Marijuana Patient : No Physical Exam Vital Signs: Vital Signs: Last Vital Signs Temp 98.0 F 04/30/21 20:37 Pulse 82 04/30/21 20:37 Resp 18 04/30/21 20:37 BP 145/73 H 04/30/21 20:37 Pulse Ox 100 04/30/21 20:37 Body Mass Index 28.9 Appearance: Alert. Oriented X3. No acute distress. Eyes: Pupils equal, round and reactive to light. ENT: Pharynx normal. Neck: Normal inspection. Neck supple. CVS: Normal heart rate and rhythm. Pulses normal. Respiratory: No respiratory distress. Breath sounds normal. Abdomen: Soft and non-tender. Back: ttp along low back into buttocks Skin: Skin warm and dry. Normal skin color. Extremities: No lower extremity edema. Neuro: Oriented X 3. No motor deficit. No sensory deficit. MDM - Back Pain/Injury MDM Narrative Medical decision making narrative: 35 yo female with prior back pain here with c/o sciatica after lifting at work - no b/b incontinence no saddle anesthesia no red flags - does not want to be put out of work due to financial issues - PO medications ordered, PCP follow up Discharge Plan Discharge Clinical Impression: Sciatica Patient Disposition: Home, Self-Care Instructions: Sciatica (ED), Back Pain (ED) Additional Instructions: return to ED for any worsening symptoms or concerns Prescriptions: New lidocaine 4 % adhesive patch,medicated 1 patch topical DAILY PRN (Reason: pain) Qty: 10 RF: 0 ibuprofen 600 mg tablet 600 mg PO Q6H PRN (Reason: pain) Qty: 30 RF: 0 diazepam [Valium] 5 mg tablet 5 mg PO TID PRN (Reason: muscle spasm) Qty: 10 RF: 0 No Action tramadol 50 mg tablet 50 mg PO TID PRN (Reason: pain) 30 Days Qty: 90 RF: 0 gabapentin 300 mg capsule 300 mg PO TID 30 Days Qty: 90 RF: 1 clonazepam 1 mg tablet 1 mg PO DAILY PRN (Reason: anxiety) 30 Days Qty: 30 RF: 0 cyclobenzaprine 10 mg tablet 10 mg PO TID PRN (Reason: muscle spasm) Qty: 20 RF: 0 oxycodone-acetaminophen [Percocet] 7.5-325 mg tablet 1 tab PO Q6H PRN (Reason: pain) Qty: 10 RF: 0 Referrals: Iftikhar Alvarez MD [Primary Care Provider] - 5 days (if not better) Print Language: Hungarian
[2021-04-30] MEDS: Ketorolac Tromethamine 60 MG/2 ML VIAL IM (21:33)
[2021-04-30] MEDS: diazePAM 5 MG TABLET PO (21:33)
[2021-04-30] MEDS: Lidocaine 4 % Patch ADH..PATCH 2 PATCH TRANSDERMA (21:35)
== END 2021-04-30 21:46 | disposition home or self-care (01) ==
LOC: HO.ED 21:23
PROVIDERS: Emergency Provider Emergency Medicine; PCP Internal Medicine
DX: Z04.2 Encounter for examination and observation following work accident (principal); M54.42 Lumbago with sciatica, left side; M54.41 Lumbago with sciatica, right side; E66.3 Overweight; F17.200 Nicotine dependence, unspecified, uncomplicated
CPT/HCPCS: 96372; 99284; J1885

== ENCOUNTER 2021-07-02 09:58 | Outpatient (REF) | payer OTHER, SELFPAY ==
--- NOTE | ~2021-07-02 | XR_ITS ---
EXAMINATION: XR LUMBOSACRAL SPINE CLINICAL INFORMATION: Low back pain, unspecified COMPARISON: None TECHNIQUE: Three views of the lumbosacral spine. FINDINGS: The vertebral bodies and posterior elements are normal. Mild disc space loss at L5-S1, otherwise the disc spaces are preserved and the vertebral alignment is normal. The paraspinal soft tissues are normal. IUD visualized in the pelvis. XR/XR lumbar spine 2-3V IMPRESSION: Mild degenerative disc disease at L5-S1
[2021-07-02 11:18] LABS: Basophils Percent Auto 0.4 % (0-2); Eosinophils Absolute Auto 0.1 X10*3/uL (0.0-0.4); Eosinophils Percent Auto 1.1 % (0-4); Hematocrit 42.1 % (37.0-47.0); Imm Gran Abs Auto 0.02 X10*3/uL (0.00-0.03); Imm Gran Pct Auto 0.2 % (0.0-0.4); Lymphocytes Absolute Auto 2.1 X10*3/uL (1.2-4.9); Lymphocytes Percent Auto 24.9 % (20-40); Mean Corpuscular HGB Conc 33.3 g/dl (31.0-35.0); Mean Corpuscular Hemoglobin 29.3 pg (27.0-33.0); Mean Corpuscular Volume 88.1 fL (80.0-98.0); Mean Platelet Volume 13.6 fL (9.4-12.3); Monocytes Absolute Auto 0.6 X10*3/uL (0.1-1.2); Monocytes Percent Auto 7.4 % (2-11); Neutrophils Absolute Auto 5.6 x10*3/uL (2.0-8.3); Platelet Count 227 X10*3/uL (160-400); Red Blood Count 4.78 X10*6/uL (4.20-5.50); Red Cell Distribution Width 13.9 % (11.0-16.0); White Blood Count 8.5 X10*3/uL (4.8-10.8)
[2021-07-02 11:20] LABS: Appearance Urine CLEAR; Color Urine YELLOW; Glucose Urine UA NEG (NEG); Leukocyte Esterase Urine NEG (NEG); Nitrite Urine NEG (NEG); Specific Gravity - Urine <= 1.005 (1.005-1.025); Urine Blood NEG (NEG); Urine Ketones NEG (NEG); Urine Protein NEG (NEG-TRACE)
[2021-07-02 11:53] LABS: Alanine Aminotransferase 18 U/L (0-31); Albumin Level 4.1 g/dL (3.5-5.0); Alkaline Phosphatase 55 U/L (39-117); Anion Gap 10 (12-20); Aspartate Amino Transferase 14 U/L (5-31); Bilirubin Total 0.3 mg/dL (0.0-1.0); Blood Urea Nitrogen 11 mg/dL (9-16); Calcium 8.9 mg/dL (8.4-10.2); Carbon Dioxide 27 mmol/L (22-29); Chloride 106 mmol/L (96-108); Cholesterol 149 mg/dL; Estimated Glomerular Filt Rate > 60; Glucose Fasting 78 mg/dL (60-99); HDL Cholesterol 45 mg/dL; LDL Cholesterol Calculated 84 mg/dl; Potassium 4.5 mmol/L (3.3-5.1); Sodium 138 mmol/L (135-145); Triglycerides 101 mg/dL
[2021-07-02 11:58] LABS: TSH reflex Free T4 1.28 uIU/mL (0.32-4.0); Vitamin D 25-OH Total 10.4 ng/mL (>30)
== END 2021-07-02 09:59 | disposition home or self-care (01) ==
LOC: HO.HMGCLDS 09:58
PROVIDERS: PCP Internal Medicine; Visit Provider Internal Medicine
DX: M54.50 Low back pain, unspecified (principal); I10 Essential (primary) hypertension; E78.00 Pure hypercholesterolemia, unspecified; E55.9 Vitamin D deficiency, unspecified; M79.605 Pain in left leg
CPT/HCPCS: 36415; 72100; 80053; 80061; 81003; 82306; 84443; 85025

== ENCOUNTER → 2021-09-02 15:04 | Outpatient (BNVA) | payer OTHER, SELFPAY | PROVIDERS: PCP Internal Medicine; Visit Provider Nurse Practitioner Family | DX: M47.27 Other spondylosis with radiculopathy, lumbosacral region (principal); M53.3 Sacrococcygeal disorders, not elsewhere classified; M54.40 Lumbago with sciatica, unspecified side; E66.3 Overweight; F17.210 Nicotine dependence, cigarettes, uncomplicated; Z68.31 Body mass index [BMI] 31.0-31.9, adult | CPT/HCPCS: 99202 ==

== ENCOUNTER 2021-09-23 12:58 | Outpatient (REF) | payer OTHER, SELFPAY ==
--- NOTE | ~2021-09-23 | MR_ITS ---
EXAMINATION: MR LUMBAR SPINE WITHOUT CONTRAST CLINICAL INFORMATION: Other spondylosis with radiculopathy, lumbosacral region. COMPARISON: None TECHNIQUE: MRI of the lumbar spine was obtained using routine sequences without contrast. FINDINGS: The lumbar vertebral bodies maintain normal heights. There is trace retrolisthesis of L5 on S1 with associated mild to moderate disc height loss. No bone marrow edema is seen. The distal spinal cord appears normal. The conus medullaris terminates normally at the L1 level. The visualized paraspinal muscles and intra-abdominal and pelvic contents are within normal limits. SPINAL LEVELS: L1-L2: No posterior disc abnormality. No spinal canal or neural foraminal stenosis. L2-L3: No posterior disc abnormality. No spinal canal or neural foraminal stenosis. L3-L4: No posterior disc abnormality. No spinal canal or neural foraminal stenosis. L4-L5: No posterior disc abnormality. Mild facet arthropathy. No spinal canal or neural foraminal stenosis. L5-S1: Disc bulging with shallow right subarticular protrusion causing mild compression of the traversing right S1 nerve root. Left foraminal protrusion compresses the exiting left L5 nerve root. Mild facet arthropathy. No spinal canal stenosis. MR/MR lumbar spine wo con IMPRESSION: At L5-S1 there is right subarticular protrusion causing mild compression of the traversing right S1 nerve root. Left foraminal protrusion at this level compresses the exiting left L5 nerve root. No significant abnormality seen at the remaining lumbar levels.
== END 2021-09-23 12:59 | disposition home or self-care (01) ==
LOC: HO.MRI 12:58
PROVIDERS: PCP Internal Medicine; Visit Provider Nurse Practitioner Family
DX: M47.27 Other spondylosis with radiculopathy, lumbosacral region (principal)
CPT/HCPCS: 72148

== ENCOUNTER → 2022-07-15 13:28 | Outpatient (BNVA) | payer OTHER, SELFPAY | PROVIDERS: PCP Internal Medicine; Visit Provider Nurse Practitioner Family | DX: M47.27 Other spondylosis with radiculopathy, lumbosacral region (principal); M53.3 Sacrococcygeal disorders, not elsewhere classified; M79.18 Myalgia, other site; E66.9 Obesity, unspecified; Z68.33 Body mass index [BMI] 33.0-33.9, adult | CPT/HCPCS: 99212 ==

== ENCOUNTER 2022-08-11 14:00 | Outpatient (RCR) | payer OTHER, SELFPAY ==
--- NOTE | 2022-08-04 17:05 | MHC.PT.EP ---
[facility] [place] [facility] [place] [facility] [place] Office [address] David Kong [address] [phone] F: [phone] F: [phone] F: [phone] F: [phone] Physical Therapy Plan of Care Date of Evaluation: Date of Surgery: Diagnosis: sacrococcygeal disorder (MD Dx) lumbar radiculopathy due to disc protrusion L5-S1 confirmed on MRI (PT Dx) Assessment: Patient is a pleasant 36 y.o. female who is referred to PT by Dr. Samara Child MD with Dx of sacrococcygeal disorder. PT diagnosis is lumbar radiculopathy due to disc protrusion as confirmed on MRI, At L5-S1 there is right subarticular protrusion causing mild compression of the traversing right S1 nerve root. Left foraminal protrusion at this level compresses the exiting left L5 nerve root. Patient impairments include pain, limited AROM, weakness. Patient current functional limitations are lying on her side to sleep (numbness L leg), bend/squat, using stairs, prolonged positions. Patient will benefit from skilled PT to address aforementioned impairments and functional limitations to meet established goals. Frequency and Duration: The patient will be seen 2x/week for 4 weeks Short Term Goals: 2 weeks Patient demonstrates consistency and independence with HEP to self manage symptoms. 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 Patient presents with increased L hip flexion 5/5 to be able to ascend/descend reciprocal stairs. Treatment Plan: Modalities to reduce pain, spasms and effusion. Manual therapy to restore motion and function. Therapeutic exercise to improve strength and flexibility. Neuromuscular re-education for posture and balance. Therapeutic activities to return to functional activities of daily living. Electronically signed by: Kathe Noe, PT, DPT Please sign and return to therapist. Thank you for your referral.
--- NOTE | 2022-09-13 17:00 | MHC.PT.DC ---
[facility] [place] [facility] [place] Office [place] Office [address] David Kong 140 [facility] [phone] F: [phone] F: [phone] F: [phone] F: [phone] Physical Therapy Discharge Report Diagnosis: sacrococcygeal disorder (MD Dx) lumbar radiculopathy due to disc protrusion L5-S1 confirmed on MRI (PT Dx) Date of Surgery: Date of Evaluation: 08/04/22 Date of Discharge: 09/13/22 Treatments to Date: 2 Cancellations to Date: 1 No Shows to Date: 2 Discharge Status: Visit Non-compliance Discharge Summary: Patient was last treated in PT on 08/11/2022. She canceled or did not show to her visits following that date. Therefore she is discharged from PT at this time. It is difficulty to determine effectiveness of PT on patient condition due to limited visits. Electronically signed by: Kathe Noe, PT, DPT Please sign and return to therapist. Thank you for your referral.
== END 2022-09-13 17:01 | disposition home or self-care (01) ==
LOC: HO.PT 14:00
PROVIDERS: PCP Internal Medicine; Visit Provider Nurse Practitioner Family
DX: M53.3 Sacrococcygeal disorders, not elsewhere classified (principal); M47.27 Other spondylosis with radiculopathy, lumbosacral region
CPT/HCPCS: 97012; 97110; 97161

== ENCOUNTER 2023-03-16 11:02 | Outpatient (AMB) | payer OTHER, SELFPAY ==
[2023-03-16 11:03] VITALS: BP 124/72; PULSE 78; O2SAT 100; BMI 32.0
--- NOTE | 2023-03-16 11:03 | A.OFFPC_ITS ---
Vital Signs 03/16/23 11:03 Height 5 ft Weight 164 lb BMI 32.0 BP 124/72 Blood Pressure Location Lt brachial Position Sitting Pulse 78 Pulse Source Pulse Oximeter Temp Source Skin Pulse Oximetry (%) 100 Oxygen Delivery Method Room Air Intake Visit Reasons: tooth pulled medication needed possible ?? Intake Note: pt states tooth pulled this morning at family dentist [place], pt states pain and is requesting medication Cell Geneticist Required: No Allergies No Known Allergies [No Known Allergies*] Allergy (Verified 03/16/23 11:59) Medication List - Last Reconciled 03/16/23 by MATTHEW Clark clonazepam 1 mg PO DAILY PRN 30 days gabapentin 400 mg PO TID 30 days ibuprofen 600 mg PO Q6H PRN lidocaine 5% 1 patch topical DAILY tramadol 50 mg PO TID PRN 30 days Tobacco use date assessed: 03/16/23 Dental Screening Dental Screen Date: 03/16/23 Did you have a dental visit in the last 12 months?: Yes Did you have a dental problem in the last 6 months where you did not have access to dental care?: No Was dental information given to patient?: Patient has dentist HPI tooth pulled medication needed possible ?? HPI Details Patient is a 37-year-old female who presents today for the same day visit due to her tooth being pulled out today by dentist in [place] and she reports pain. Left back tooth was extracted today. Patient reports pain and pins and needles in her left low gum. Patient requesting oxycodone. Patient has tramadol 50 mg t.i.d. p.r.n., prescription was sent in February 2023, patient reports tramadol is not helping her. Patient also reports taking Tylenol 650 mg and ibuprofen 600 mg with no improvement. She reports that she took these medications prior to tooth extraction. [facility] Medical History Obesity (BMI 30-39.9) Overweight (BMI 25.0-29.9) Smoker Palpitations Anxiety Gastritis Knee pain Sciatica Surgical History No pertinent past surgical history Family History Father Medical history unknown Mother Hypertension Family/Other Hypertension Diabetes Social History Housing: Apartment Alcohol intake: never Patient Tobacco Use Status: Former Tobacco user Tobacco use type: Cigarette Cigarettes Per Day: 10 e-Cigarette/Vaping Use: Never Used Second Hand Smoke Exposure: Yes Substance Use Type: Marijuana service: No Current occupational status: employed Cognitive needs: No Hearing needs: No Vision needs: No Questionnaire Thrive Questionnaire Date Thrive assessed: 05/14/22 AUDIT C Alcohol Use Questionnaire (AUDIT-C) 1. How often do you have a drink containing alcohol?: Never 3. How often do you have six or more drinks on one occasion?: Never Total Score: 0 Score Reviewed/Action Taken: Yes ALICIA-7 AMB Questionnaire ALICIA-7 Date ALICIA - 7 assessed: 05/08/21 Source: Developed by Drs. Hilario Maldonado, Rima Louis, Ashish Silva and colleagues, with an educational sebastián from [employer]. Review of Systems Const Denies body aches, Denies chills, Denies fever(s) and Denies headache(s) ENT Reports as per HPI, Denies dizziness, Denies otalgia, Denies headache(s), Denies nasal discharge, Denies sinus pain and Denies sore throat Card Denies chest pain, Denies edema, Denies lightheadedness and Denies dyspnea Resp Denies dyspnea and Denies wheezing GI Denies abdominal pain Denies dysuria Musc Denies myalgias Skin/Breast Denies rash Neuro Denies dizziness and Denies headache(s) Aller/Immun Denies wheezing Physical exam (Primary Care) Vital Signs: Last Vital Signs Pulse 78 03/16/23 11:03 BP 124/72 03/16/23 11:03 Pulse Ox 100 03/16/23 11:03 Oxygen Delivery Method Room Air 03/16/23 11:03 BMI result Body Mass Index 32.0 Tobacco/Smoking Status: Tobacco use Status Tobacco use date assessed 03/16/23 03/16/23 11:04 Patient Tobacco Use Status Former Tobacco user 03/16/23 11:04 Tobacco use type Cigarette 03/16/23 11:04 e-Cigarette/Vaping Use Never Used 03/16/23 11:04 Thrive Assessment: Date of Thrive Assessment Date Thrive assessed 05/14/22 03/16/23 11:04 Const General: cooperative and no acute distress Orientation/consciousness: patient oriented x3 HENMT Other: Left low gum back tooth extracted today, no bleeding noted Head: Yes normocephalic and Yes atraumatic Mouth: oropharynx normal and moist mucous membranes Throat: Yes posterior oropharynx normal Eyes General: appearance normal, both eyes and all related structures Neck Neck: Yes normal visual inspection and Yes full ROM Resp Effort & Inspection: normal respiratory effort and able to speak in complete sentences Auscultation: clear to auscultation bilaterally, no crackles, no rales, no rhonchi and no wheezes Cardio Rate: regular rate Rhythm: regular rhythm Heart sounds: S1 normal heart sound present and S2 normal heart sound present GI Auscultation: normal bowel sounds Skin General skin exam: no rashes or lesions noted Neuro General: patient oriented x3 Gait exam (Neuro): Normal gait present Extrem General: Yes full ROM Assessment and Plan Assessment & Plan (1) H/O tooth extraction: Code(s): K08.409 - Partial loss of teeth, unspecified cause, unspecified class Plan: Patient was encouraged to follow-up with her dentist in regards to pain after tooth extraction. Patient is to continue tramadol 50 mg t.i.d. p.r.n.. Will increase ibuprofen to 800 mg q8hrs p.r.n.. Increase Tylenol to 1000 mg every 6 hours p.r.n.. Encouraged ice packs every 4 hours p.r.n.. Follow-up with this dentist. Patient agreed with the plan. Medications: New ibuprofen 800 mg PO Q8H PRN 20 tabs 0RF pain K08.409 - Partial loss of teeth, unspecified cause, unspecified class acetaminophen (Tylenol Extra Strength) 1,000 mg (2 x 500 mg) PO Q6H PRN 50 tabs 0RF fever or pain K08.409 - Partial loss of teeth, unspecified cause, unspecified class Discontinued 2 ibuprofen Discontinued Reason: Doctor's Order 600 mg PO Q6H PRN 30 tabs 0RF pain Coding Level of Care Code Est Pt Level 3 (24798) Diagnoses H/O tooth extraction K08.409
== END 2023-03-16 12:12 | disposition home or self-care (01) ==
PROVIDERS: PCP Internal Medicine; Visit Provider Nurse Practitioner Family
DX: K08.409 Partial loss of teeth, unspecified cause, unspecified class (principal)
CPT/HCPCS: 99213

== ENCOUNTER 2023-08-05 10:17 | Outpatient (AMB) | payer OTHER, SELFPAY ==
[2023-08-05 10:20] VITALS: BP 136/80; PULSE 100; O2SAT 99; BMI 30.2
--- NOTE | 2023-08-05 10:20 | MHC.PC.OV ---
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 Required: No Accompanied by: Self / Same As Patient Allergies No Known Allergies [No Known Allergies*] Allergy (Verified 08/05/23 11:08) Medication List - Last Reconciled 08/05/23 by Iftikhar Alvarez MD acetaminophen (Tylenol Extra Strength) 1,000 mg (2 x 500 mg) PO Q6H PRN clonazepam 1 mg PO DAILY PRN 30 days gabapentin 400 mg PO TID 30 days ibuprofen 800 mg PO Q8H PRN lidocaine 5% 1 patch topical DAILY tramadol 50 mg PO TID PRN 30 days Tobacco use date assessed: 08/05/23 Dental Screening Dental Screen Date: 08/05/23 Did you have a dental visit in the last 12 months?: Yes Did you have a dental problem in the last 6 months where you did not have access to dental care?: No Was dental information given to patient?: Patient has dentist HPI Chronic Issues HPI Details Patient comes in today for her follow up visit - was last seen by me in May 2022 when she had her last annual physical States that she woke up this morning with low grade fever, sore throat and headaches Also relates (+) runny nose and symptoms of cough/congestion - states that she has been coughing up some brownish phlegm lately, which she thinks is mostly because she is still smoking States that her daughter tested positive for flu yesterday and is concerned that she may also now have the flu She denies any chest pains, no increased SOB No nausea/vomiting, no abdominal pain No change in bowel habits noted States that her chronic pains are adequately controlled on her current Rx and she needs her Tramadol, Gabapentin and Lidocaine patches Rx refilled Would also like to get something to help her quit smoking Is also requesting to have her Clonazepam dosing increased from 1 tablet to 1.5 tablet QD as she has been experiencing a lot of anxiety lately and her current dose has not been helping her much lately [facility] Medical History Obesity (BMI 30-39.9) Overweight (BMI 25.0-29.9) Smoker Palpitations Anxiety Gastritis Knee pain Sciatica Surgical History No pertinent past surgical history Family History Father Medical history unknown Mother Hypertension Family/Other Hypertension Diabetes Social History Housing: Apartment Alcohol intake: never Patient Tobacco Use Status: Former Tobacco user Tobacco use type: Cigarette Cigarettes Per Day: 10 e-Cigarette/Vaping Use: Never Used Second Hand Smoke Exposure: Yes Substance Use Type: Marijuana service: No Current occupational status: employed Cognitive needs: No Hearing needs: No Vision needs: No Questionnaire PHQ-9 Over the last 2 weeks, how often have you been bothered by any of the following problems? 1. Little interest or pleasure in doing things: nearly every day 2. Feeling down, depressed, or hopeless: several days 3. Trouble falling or staying asleep, or sleeping too much: nearly every day 4. Feeling tired or having little energy: more than half the days 5. Poor appetite or overeating: several days 6. Feeling bad about yourself - or that you are a failure or have let yourself or your family down: not at all 7. Trouble concentrating on things, such as reading the newspaper or watching television: several days 8. Moving or speaking so slowly that other people could have noticed. Or the opposite - being so fidgety or restless that you have been moving around a lot more than usual: several days 9. Thoughts that you would be better off or of hurting yourself in some way: not at all Total score: 12 Depression Screening Interpretation: Positive Depression Screening Follow-up: Existing condition and Community Mental Health Worker F/U Depression Screening Done: Yes 54126 - PHQ-9 Billing: Yes Source: Developed by Drs. Hilario Maldonado, Rima Louis, Ashish Silva and colleagues, with an educational sebastián from [email or web address]. Thrive Questionnaire Date Thrive assessed: 08/05/23 I am a: Patient What is your living situation today?: I have a steady place to live Within the past 12 months, did the food you bought not last and you didn't have the money to get more?: Never true Within the past 12 months, did you worry whether your food would run out before you got money to buy more?: Never true Do you have trouble paying for medicines?: No Do you have trouble getting transportation to medical appointments?: No Do you have trouble paying your heating and electricity bill?: No Do you have trouble taking care of your child, family member or friend?: No Do you have trouble with day-to-day activities such as bathing, preparing meals, shopping, managing finances, etc.?: No Are you currently unemployed and looking for a job?: No Are you interested in more education?: No Please select the resources that you would like help with: None Currently or been in a relationship where the following occur: no concerns reported THRIVE Score: 0 AUDIT C Alcohol Use Questionnaire (AUDIT-C) 1. How often do you have a drink containing alcohol?: Never 3. How often do you have six or more drinks on one occasion?: Never Total Score: 0 Score Reviewed/Action Taken: Yes ALICIA-7 AMB Questionnaire ALICIA-7 Date ALICIA - 7 assessed: 08/05/23 Feeling nervous, anxious, or on edge: 0 = Not at all Not being able to stop or control worryin = Not at all Worrying too much about different things: 0 = Not at all Trouble relaxin = Not at all Being so restless that it is hard to sit still: 0 = Not at all Becoming easily annoyed or irritable: 0 = Not at all Feeling afraid as if something awful might happen: 0 = Not at all Total ALICIA-7 score (0-4 normal; 5-9 mild; 10-14 moderate; 15-21 severe): 0 Source: Developed by Drs. Hilario Maldonado, Rima Louis, Ashish Silva and colleagues, with an educational sebastián from [email or web address]. Review of Systems Const Denies chills, Denies fatigue, Reports fever(s) (low grade) and Reports headache(s) (on and off) ENT Denies dysphagia, Denies dizziness, Denies otalgia, Reports headache(s) (on and off), Reports nasal congestion, Denies neck pain, Denies odynophagia and Reports sore throat (mild) Card Denies chest pain, Denies rapid heart rate, Denies irregular heart rhythm, Denies palpitations and Denies dyspnea Resp Reports chest congestion (mild), Reports cough (on and off; coughs up thick brownish phlegm at times), Denies dyspnea and Denies wheezing GI Denies abdominal pain, Denies constipation, Denies dysphagia, Denies heartburn, Denies diarrhea, Denies nausea, Denies odynophagia and Denies vomiting Denies hematuria, Denies urinary frequency, Denies dysuria, Denies urinary incontinence and Denies urinary urgency Musc Reports back pain (over the lower back - chronic; frequently radiating down left leg) and Denies neck pain Skin/Breast Denies rash Neuro Denies dizziness and Reports headache(s) (on and off) Psych Reports anxiety Endo Denies fatigue and Denies palpitations Aller/Immun Denies wheezing Physical exam (Primary Care) Vital Signs: Last Vital Signs Pulse 100 08/05/23 10:20 BP 136/80 08/05/23 10:20 Pulse Ox 99 08/05/23 10:20 Oxygen Delivery Method Room Air 08/05/23 10:20 BMI result Body Mass Index 30.2 Tobacco/Smoking Status: Tobacco use Status Tobacco use date assessed 08/05/23 08/05/23 10:22 Patient Tobacco Use Status Former Tobacco user 08/05/23 10:22 Tobacco use type Cigarette 08/05/23 10:22 e-Cigarette/Vaping Use Never Used 08/05/23 10:22 PHQ-9: PHQ-9 Score PHQ-9: Total score 12 08/05/23 10:36 Depression Screening Interpretation: Positive Depression Screening Follow-up: Existing condition and Community Mental Health Worker F/U Thrive Assessment: Date of Thrive Assessment Date Thrive assessed 08/05/23 08/05/23 10:22 Currently or been in a relationship where the following occur: no concerns reported Const General: no acute distress and alert HENMT Ears: TM's normal bilaterally and EAC's normal Throat: Yes tonsils normal (no TP congestion) and Yes posterior oropharynx abnormal ((+) erythema of the posterior pharynx) Neck Neck: Yes no lymphadenopathy and Yes supple Thyroid: Thyroid normal Resp Auscultation: no crackles, no rales, rhonchi (scattered) lower bilaterally and no wheezes Cardio Rate: regular rate Rhythm: regular rhythm Heart sounds: no murmurs GI Palpation (GI): Soft to palpation and nontender Auscultation: normal bowel sounds General: Yes no CVA tenderness Back/Spine/Pelvis Back: no CVA tenderness Thoracic/Lumbar Spine: lumbar spinal tenderness Skin Rashes: no rashes Extrem General: Yes no clubbing, cyanosis or edema Assessment and Plan Assessment & Plan (1) Respiratory tract infection: Code(s): J98.8 - Other specified respiratory disorders Plan: Patient reports recent exposure to (+) flu cases Will send her to check for a complete viral panel - flu, RSV, COVID - and advised that Tx will depend on her test results She can continue for now on OTC cough/cold meds PRN for symptomatic relief (2) Spondylosis of lumbosacral spine with radiculopathy: Code(s): M47.27 - Other spondylosis with radiculopathy, lumbosacral region Plan: Lumbar spine MRI done back in September 2021 revealed (+) right sub-articular disc protrusion at L5-S1, causing mild compression of the traversing right SI nerve root. There are no significant abnormalities seen at the remaining lumbar levels She was seen by neurosurgery early last year (2022) but decided that she does not want any surgical intervention She was seen by Pain Management and recommended SI joint injections, which she also declined States that her low back pain has been fairly controlled over the past year and she is satisfied with just continuing on her current Rx for now, including Gabapentin 400 mg TID, Lidocaine 5% patches QD PRN and Tramadol 50 mg TID PRN (Rx refilled per request) Have reminded patient again that I will not continue to prescribe and refill her any other opioid Rx aside from her Tramadol Reinforced activity and weight-lifting restrictions (3) Gastritis: Code(s): K29.70 - Gastritis, unspecified, without bleeding Qualifiers: Gastritis type: unspecified gastritis Chronicity: unspecified Gastritis bleeding: without bleeding Qualified Code(s): K29.70 - Gastritis, unspecified, without bleeding Plan: Reinforced dietary restrictions Has not needed to take any PPIs in a while now as she has not had any flare up of her GI symptoms (4) Anxiety: Code(s): F41.9 - Anxiety disorder, unspecified Plan: Per request, will try to increase her Clonazepam from 1 mg to 1.5 mg QD PRN Follow up with psychiatry as scheduled (5) Smoker: Code(s): F17.200 - Nicotine dependence, unspecified, uncomplicated Plan: Counseled again on smoking cessation Per request, will send in Rx for generic Varenicline (Chantix) to help her quit smoking (6) Obesity (BMI 30-39.9): Code(s): E66.9 - Obesity, unspecified Plan: Reinforced diet/exercise as tolerated/lose weight - she has been able to lose at least 15 pounds since I last saw her over a year ago Plan To return in 3 to 4 months for her annual physical examination Orders: Orders SARS-CoV2/FLU/RSV Today J98.8 - Other specified respiratory disorders Medications: New varenicline administer on days 4, 5, and 6 of therapy 0.5 mg PO BID 3 days 6 tabs 0RF varenicline 1 mg PO BID 28 days 56 tabs 3RF varenicline administer on days 1, 2, and 3 of therapy 0.5 mg PO DAILY 3 days 3 tabs 0RF Changed From clonazepam 1 mg PO DAILY 30 days PRN 30 tabs 0RF anxiety To clonazepam 1.5 mg (1.5 x 1 mg) PO DAILY 30 days PRN 45 tabs 0RF anxiety Refilled lidocaine 5% leave on most painful area for up to 12 hrs 1 patch topical DAILY 30 ea 2RF M47.27 - Other spondylosis with radiculopathy, lumbosacral region gabapentin 400 mg PO TID 30 days 90 caps 1RF tramadol 50 mg PO TID 30 days PRN 90 tabs 0RF pain Coding Level of Care Code Est Pt Level 4 (51761) Diagnoses Respiratory tract infection J98.8 Spondylosis of lumbosacral spine with radiculopathy M47.27 Gastritis without bleeding, unspecified chronicity, unspecified gastritis type K29.70 Gastritis type: unspecified gastritis Chronicity: unspecified Gastritis bleeding: without bleeding Anxiety F41.9 Smoker F17.200 Obesity (BMI 30-39.9) E66.9
== END 2023-08-05 11:17 | disposition home or self-care (01) ==
PROVIDERS: PCP Internal Medicine; Visit Provider Internal Medicine
DX: J98.8 Other specified respiratory disorders (principal); E66.9 Obesity, unspecified; Z68.30 Body mass index [BMI] 30.0-30.9, adult; M47.27 Other spondylosis with radiculopathy, lumbosacral region; K29.70 Gastritis, unspecified, without bleeding; F17.210 Nicotine dependence, cigarettes, uncomplicated; F41.9 Anxiety disorder, unspecified
CPT/HCPCS: 99214

== ENCOUNTER 2023-08-05 11:22 | Outpatient (REF) | payer OTHER, SELFPAY ==
[2023-08-05 12:39] LABS: Influenza A PCR NEGATIVE (Negative); Influenza B PCR NEGATIVE (Negative); Resp Syncy Virus RNA Qual PCR NEGATIVE (Negative); SARS COV2 PCR INHOUSE NEGATIVE (Negative)
== END 2023-08-05 11:23 | disposition home or self-care (01) ==
LOC: HO.LAB 11:22
PROVIDERS: PCP Internal Medicine; Visit Provider Internal Medicine
DX: J98.8 Other specified respiratory disorders (principal); Z11.52 Encounter for screening for COVID-19; Z20.828 Contact with and (suspected) exposure to other viral communicable diseases
CPT/HCPCS: 0241U

== ENCOUNTER 2023-09-07 10:11 | Emergency (ER) | payer OTHER, SELFPAY ==
--- NOTE | 2023-09-07 | ECG_ITS ---
Test Reason : cp Blood Pressure : / mmHG Vent. Rate : 099 BPM Atrial Rate : 099 BPM P-R Int : 126 ms QRS Dur : 082 ms QT Int : 358 ms P-R-T Axes : 080 066 047 degrees QTc Int : 459 ms Normal sinus rhythm Normal ECG When compared with ECG of 24-NOV-2020 22:12, QT has lengthened Referred By: Generic ED Physician Electronically Signed By:Carlyle Rashid
[2023-09-07 10:42] VITALS: BP 132/72; PULSE 97; RESP 20; TEMP 37; O2SAT 98; BMI 29.3
[2023-09-07 11:30] LABS: MANUAL DIFF FLAG NO
[2023-09-07 11:33] LABS: Basophils Percent Auto 0.1 % (0-2); Eosinophils Absolute Auto 0.1 X10*3/uL (0.0-0.4); Eosinophils Percent Auto 0.6 % (0-4); Hematocrit 39.5 % (37.0-47.0); Hemoglobin 13.7 g/dl (12.0-16.0); Imm Gran Abs Auto 0.01 X10*3/uL (0.00-0.03); Imm Gran Pct Auto 0.1 % (0.0-0.4); Lymphocytes Absolute Auto 1.7 X10*3/uL (1.2-4.9); Lymphocytes Percent Auto 18.4 % (20-40); Mean Corpuscular HGB Conc 34.7 g/dl (31.0-35.0); Mean Corpuscular Hemoglobin 29.9 pg (27.0-33.0); Mean Corpuscular Volume 86.2 fL (80.0-98.0); Monocytes Absolute Auto 0.6 X10*3/uL (0.1-1.2); Neutrophils Absolute Auto 6.7 x10*3/uL (2.0-8.3); Neutrophils Percent Auto 73.8 % (45-73); Platelet Count 198 X10*3/uL (160-400); Red Blood Count 4.58 X10*6/uL (4.20-5.50); Red Cell Distribution Width 14.4 % (11.0-16.0)
[2023-09-07 11:36] LABS: IDNOW Serial# 08D9AD1C; Strep A Nucleic Acid Positive (Negative)
[2023-09-07 11:40] LABS: INTERNATIONAL NORM RATIO 1.1 (0.9-1.1); Prothrombin Time 12.9 SEC (11.1-13.3)
[2023-09-07 11:54] LABS: Alanine Aminotransferase 26 U/L (0-31); Albumin Level 4.1 g/dL (3.5-5.0); Alkaline Phosphatase 68 U/L (39-117); Anion Gap 8 (12-20); Aspartate Amino Transferase 19 U/L (5-31); Bilirubin Total 0.2 mg/dL (0.0-1.0); Blood Urea Nitrogen 7 mg/dL (9-16); Calcium 8.9 mg/dL (8.4-10.2); Carbon Dioxide 28 mmol/L (22-29); Chloride 109 mmol/L (96-108); Creatinine Clr Calc Pharmacy 101.4; Estimated Glomerular Filt Rate > 60; Glucose Random 95 mg/dL (60-115); Potassium 3.8 mmol/L (3.3-5.1); Sodium 141 mmol/L (135-145); Total Protein 7.3 g/dL (6.5-8.0)
[2023-09-07 12:05] LABS: Troponin-I High Sensitivity < 2.7 ng/L (<3.5-17.0)
[2023-09-07 12:25] LABS: Influenza A PCR NEGATIVE (Negative); Influenza B PCR NEGATIVE (Negative); Resp Syncy Virus RNA Qual PCR NEGATIVE (Negative); SARS COV2 PCR INHOUSE NEGATIVE (Negative)
--- NOTE | 2023-09-07 12:53 | ED_ITS ---
HPI - Chest Pain General Chief Complaint: Chest Pain Stated Complaint: Chest pain, coughing up blood Time Seen by Provider: 09/07/23 12:53 Source: patient Mode of arrival: ambulatory Limitations: no limitations History of Present Illness HPI narrative: Patient is a 37 year old assigned female at with a history of gastritis presenting to the emergency department today with a cough. Patient states that over the last 2 days she has had a cough. Patient denies any dizziness, lightheadedness, abdominal pain, nausea, vomiting, fever, chills, blurry vision, double vision, loss of vision, chest pain, difficulty breathing, shortness of breath, back pain, night sweats, pain with urination, increased urinary frequency, increased urinary urgency, blood in her urine or stool, syncope or a near syncopal episode, recent trauma or falls, bowel incontinence, bladder incontinence, bowel retention, bladder retention, or any other complaints at this time. Related Data Previous Rx's Medication Instructions Recorded acetaminophen 500 mg tablet 1,000 mg (2 x 500 mg) PO Q6H PRN 03/16/23 (Tylenol Extra Strength) fever or pain #50 tabs ibuprofen 800 mg tablet 800 mg PO Q8H PRN pain #20 tabs 03/16/23 gabapentin 400 mg capsule 400 mg PO TID 30 days #90 caps 08/05/23 lidocaine 5 % topical patch 1 patch topical DAILY #30 ea 08/05/23 tramadol 50 mg tablet 50 mg PO TID PRN pain 30 days #90 08/05/23 tabs varenicline 0.5 mg tablet 0.5 mg PO BID 3 days #6 tabs 08/05/23 varenicline 0.5 mg tablet 0.5 mg PO DAILY 3 days #3 tabs 08/05/23 varenicline 1 mg tablet 1 mg PO BID 28 days #56 tabs 08/05/23 clonazepam 1 mg tablet 1.5 mg (1.5 x 1 mg) PO DAILY PRN 09/05/23 anxiety 30 days #45 tabs penicillin V potassium 500 mg 500 mg PO BID 10 days #20 tabs 09/07/23 tablet Allergies Allergy/AdvReac Type Severity Reaction Status Date / Time No Known Allergies Allergy Verified 09/07/23 10:44 [No Known Allergies*] Review of Systems 2 Constitutional: Constitutional: Reports no additional constitutional complaints, Denies chills, Denies fever(s) and Denies night sweats Eyes: Eyes: Reports no additional eye complaints, Denies blurry vision, Denies change in vision, Denies diplopia, Denies eye discharge, Denies loss of vision and Denies eye pain ENT: Denies dizziness Cardiovascular: Cardiovascular: Reports no additional cardiovascular complaints, Denies chest pain, Denies lightheadedness, Denies Loss of Consciousness and Denies dyspnea Respiratory: Respiratory: Reports no additional respiratory complaints, Reports cough and Denies dyspnea Gastrointestinal: Gastrointestinal: Reports no additional gastrointestinal complaints, Denies abdominal pain, Denies melena, Denies hematochezia, Denies change in bowel habits and Denies change in stool character Genitourinary: Genitourinary: Denies hematuria, Denies urinary frequency, Denies dysuria, Denies urinary incontinence, Denies urinary hesitancy and Denies urinary urgency Musculoskeletal: Musculoskeletal: Reports no additional musculoskeletal complaints, Denies numbness and Denies tingling Neurologic: Denies dizziness, Denies loss of vision, Denies numbness and Denies tingling Psychiatric: Psychiatric: Reports no additional psychiatric complaints Endocrine: Endocrine: Reports no additional endocrine complaints Hematologic/Lymphatic: Hematologic/Lymphatic: Reports no additional hematologic/lymphatic complaints Allergic/Immunologic: Allergic/Immunologic: Reports no additional allergic/immunologic complaints [facility] Past Medical History Attestation statement: The following information was validated with the patient. Source: old records reviewed and nursing notes reviewed Medical History Respiratory tract infection Obesity (BMI 30-39.9) Breast cancer screening Cervical cancer screening Annual physical exam Low back pain radiating to left leg Annual physical exam Precordial chest pain Overweight (BMI 25.0-29.9) Tracheobronchitis Shortness of breath Smoker Palpitations Anxiety Gastritis Knee pain Sciatica Surgical History H/O tooth extraction No pertinent past surgical history Family History Family History Father Medical history unknown Mother Hypertension Family/Other Hypertension Diabetes Social History Social History Housing: Apartment Alcohol intake: never Patient Tobacco Use Status: Former Tobacco user Tobacco use type: Cigarette Cigarettes Per Day: 10 e-Cigarette/Vaping Use: Never Used Second Hand Smoke Exposure: Yes Substance Use Type: Marijuana Advance Directives: No service: No Current occupational status: employed Cognitive needs: No Hearing needs: No Vision needs: No Physical Exam 2 Vital Signs: Vital Signs: Last Vital Signs Temp 98.6 F 09/07/23 10:42 Pulse 97 09/07/23 10:42 Resp 20 09/07/23 10:42 BP 132/72 09/07/23 10:42 Pulse Ox 98 09/07/23 10:42 O2 Del Method Room Air 09/07/23 10:42 BMI result Body Mass Index 29.3 Const: General: cooperative, no acute distress, alert and awake Nutritional Appearance: well nourished Orientation/consciousness: patient oriented x3 Limitations: no limitations HEENT: Head: Yes normal to inspection and Yes atraumatic Ears: hearing grossly normal bilaterally and external ears normal General nose exam: Normal external nose present, no nasal discharge noted and no epistaxis Face and sinus: Yes normal facial exam, No abrasion and No laceration Mouth: Normal oral and palatal mucosa present, no drooling and no muffled voice Throat: Yes abnormal tonsil (bilateral erythema and exudate) Eyes: General: appearance normal, both eyes and all related structures P eriorbital: periorbital findings normal Eyelids: Yes eyelids normal C onjunctivae: conjunctivae normal Pupils: Equal, round and reactive pupils present EOM: EOMs intact bilaterally Neck: Neck: Yes normal visual inspection, Yes full ROM and Yes no lymphadenopathy Chest: Chest palpation & inspection: normal inspection of the chest Resp: Effort & Inspection: normal respiratory effort and able to speak in complete sentences GI: Inspection: Yes normal to inspection Neuro: General: patient oriented x3 and moves all extremities Cranial nerves: Yes Equal, round and reactive pupils present Cognition (Neuro): n ormal cognition Motor exam (neuro): 5/5 motor strength present throughout Sensory Exam: Normal double simultaneous stimulation for sensation C oordination: [id number] test normal Extrem: General: Yes normal to inspection, Yes full ROM and Yes capillary refill normal Psych: Appearance: grossly normal Mental Status: mental status grossly normal Affect: normal affect Attitude: cooperative Thought process: N ormal thought process present Thought content: Normal thought content present Insight: Good insight present (Psych) Medications Administered Discontinued Medications Generic Name Dose Route Start Last Admin Trade Name Hector PRN Reason Stop Dose Admin Dexamethasone Sodium Phosphate 10 mg 09/07/23 12:53 09/07/23 12:57 Dexamethasone Sod Phosphate 10 Mg/Ml Vial PO 09/07/23 12:54 10 mg ONCE ONE Administration Medical Decision Making Medical Decision Making [facility] Narrative: Patient is a 37 year old assigned female at with a history of anxiety presenting to the emergency department today with a cough. Patient's physical exam was as noted in the physical exam portion of this note. Patient's blood work was unremarkable. Patient's EKG was unremarkable. Patient's COVID-19, influenza, and RSV tests were negative. Patient's strep test was positive. I explained my physical exam findings as well as all test results to the patient. I answered all questions asked by the patient. I stressed the importance of the patient taking her medication as prescribed. I stressed the importance of the patient following up with her primary care provider. I stressed the importance of the patient returning to the emergency department immediately if her symptoms were to worsen or if she were to develop any dizziness, shortness of breath, difficulty breathing, chest pain, blurry vision, loss of vision, nausea, vomiting, abdominal pain, fever, chills, back pain, or any other complaints. Patient verbalized agreement and understanding with this treatment plan and discharge. Differential Diagnosis Differential Diagnoses: The differential diagnosis associated with the presentation includes Strep pharyngitis Pharyngitis Influenza COVID-19 RSV Admission/Observation Consideration of admission/observation: Escalation of care including admission/observation considered Patient would have been admitted to the hospital had her work up had any findings where hospital admission was appropriate and her clinical presentation warranted hospital admission. Lab Data [facility] Lab Attestation statement: I reviewed the patient's lab results. My interpretation of these results are in the MDM Rationale portion of this note. 09/07/23 11:24 09/07/23 11:24 Labs: Lab Results 09/07/23 Range/Units 11:24 WBC 9.0 (4.8-10.8) X10*3/uL RBC 4.58 (4.20-5.50) X10*6/uL Hgb 13.7 (12.0-16.0) g/dl Hct 39.5 (37.0-47.0) % MCV 86.2 (80.0-98.0) fL MCH 29.9 (27.0-33.0) pg MCHC 34.7 (31.0-35.0) g/dl RDW 14.4 (11.0-16.0) % Plt Count 198 (160-400) X10*3/uL MPV 13.0 H (9.4-12.3) fL Immature Gran % (Auto) 0.1 (0.0-0.4) % Neut % (Auto) 73.8 H (45-73) % Lymph % (Auto) 18.4 L (20-40) % [place] % (Auto) 7.0 (2-11) % Eos % (Auto) 0.6 (0-4) % Baso % (Auto) 0.1 (0-2) % Lymph # (Auto) 1.7 (1.2-4.9) X10*3/uL [place] # (Auto) 0.6 (0.1-1.2) X10*3/uL Eos # (Auto) 0.1 (0.0-0.4) X10*3/uL Baso # (Auto) 0.0 (0.0-0.2) X10*3/uL Abs Immat Gran (auto) 0.01 (0.00-0.03) X10*3/uL Absolute Neuts (auto) 6.7 (2.0-8.3) x10*3/uL Absolute Nucleated RBC 0.000 (0.0-0.012) X10*3/uL Nucleated RBC % (auto) 0.0 (0.0-0.2) /100WBC PT 12.9 (11.1-13.3) SEC INR 1.1 (0.9-1.1) Sodium 141 (135-145) mmol/L Potassium 3.8 (3.3-5.1) mmol/L Chloride 109 H (96-108) mmol/L Carbon Dioxide 28 (22-29) mmol/L Anion Gap 8 L (12-20) BUN 7 L (9-16) mg/dL Creatinine 0.66 (0.5-1.4) mg/dL Estim Creat Clear Calc 101.4 Estimated GFR > 60 Random Glucose 95 (60-115) mg/dL Calcium 8.9 (8.4-10.2) mg/dL Magnesium 2.0 (1.6-2.6) mg/dL Total Bilirubin 0.2 (0.0-1.0) mg/dL AST 19 (5-31) U/L ALT 26 (0-31) U/L Alkaline Phosphatase 68 (39-117) U/L Troponin I High Sens < 2.7 (<3.5-17.0) ng/L Total Protein 7.3 (6.5-8.0) g/dL Albumin 4.1 (3.5-5.0) g/dL Influenza Type A (PCR) NEGATIVE (Negative) Influenza Type B (PCR) NEGATIVE (Negative) RSV RNA Qual (PCR) NEGATIVE (Negative) SARS-CoV-2 RNA (RT-PCR) NEGATIVE (Negative) S. pyogenes GrpA BOYD Positive A (Negative) Independent Interpretation I performed an independent interpretation of an: EKG Interpretation: Vent. Rate: 099 BPM Atrial Rate: 099 BPM P-R Int: 126 ms QRS Dur: 082 ms QT Int: 358 ms P-R-T Axes: 080 066 047 degrees QTc Int: 459 ms Normal sinus rhythm Normal ECG When compared with ECG of 24-NOV-2020 22:12, QT has lengthened DD/ 1024 Radiology Impression Discussion of test interpretation with radiology: I have reviewed the radiologist's reading. Prescription Management I considered prescription management with: Antibiotic (patient prescribed an antibiotic for strep pharyngitis) Discharge Plan Discharge Clinical Impression: Strep pharyngitis Patient Disposition: Home, Self-Care Instructions: Strep Throat (DC) Additional Instructions: Follow up with your primary care provider. Return to the emergency department immediately if your symptoms worsen or if you develop any dizziness, shortness of breath, difficulty breathing, chest pain, blurry vision, loss of vision, nausea, vomiting, abdominal pain, fever, chills, back pain, or any other complaints. Prescriptions: New penicillin V potassium 500 mg tablet 500 mg PO BID 10 Days Qty: 20 0RF No Action clonazepam 1 mg tablet 1.5 mg PO DAILY PRN (Reason: anxiety) 30 Days Qty: 45 0RF ibuprofen 800 mg tablet 800 mg PO Q8H PRN (Reason: pain) Qty: 20 0RF acetaminophen [Tylenol Extra Strength] 500 mg tablet 1,000 mg PO Q6H PRN (Reason: fever or pain) Qty: 50 0RF varenicline 0.5 mg tablet 0.5 mg PO DAILY 3 Days Qty: 3 0RF Rx Instructions: administer on days 1, 2, and 3 of therapy varenicline 0.5 mg tablet 0.5 mg PO BID 3 Days Qty: 6 0RF Rx Instructions: administer on days 4, 5, and 6 of therapy varenicline 1 mg tablet 1 mg PO BID 28 Days Qty: 56 3RF lidocaine 5 % adhesive patch,medicated 1 patch topical DAILY Qty: 30 2RF Rx Instructions: leave on most painful area for up to 12 hrs gabapentin 400 mg capsule 400 mg PO TID 30 Days Qty: 90 1RF tramadol 50 mg tablet 50 mg PO TID PRN (Reason: pain) 30 Days Qty: 90 0RF Referrals: Iftikhar Alvarez MD [Primary Care Provider] - Stand Alone Forms: Work/School Release Interventions: ED Discharge Assessment Last Done: 09/07/23 12:59 Discharge Date/Time: 09/07/23 12:59 Print Language: Tamazight
[2023-09-07] MEDS: dexAMETHasone sod phosphate 10 MG/ML VIAL PO (12:57)
== END 2023-09-07 12:59 | disposition home or self-care (01) ==
PROVIDERS: Emergency Provider Emergency Medicine; PCP Internal Medicine
DX: J02.0 Streptococcal pharyngitis (principal); Z11.52 Encounter for screening for COVID-19; Z20.828 Contact with and (suspected) exposure to other viral communicable diseases
CPT/HCPCS: 0241U; 80053; 83735; 84484; 85025; 85610; 87651; 93005; 99283; J1100

== ENCOUNTER → 2023-09-07 10:24 | Outpatient (BNV) | payer OTHER, SELFPAY | PROVIDERS: Emergency Provider Emergency Medicine; PCP Internal Medicine; Visit Provider Internal Medicine Cardiovascular Disease | DX: R07.9 Chest pain, unspecified (principal) | CPT/HCPCS: 93010 ==

== ENCOUNTER 2023-12-20 13:00 | Outpatient (AMB) | payer OTHER, SELFPAY ==
[2023-12-20 13:07] VITALS: BP 112/60; PULSE 75; O2SAT 97; BMI 32.8
--- NOTE | 2023-12-20 13:07 | MHC.PC.OV ---
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 Required: No Allergies No Known Allergies [No Known Allergies*] Allergy (Verified 12/20/23 13:36) Medication List - Last Reconciled 12/20/23 by Iftikhar Alvarez MD acetaminophen (Tylenol Extra Strength) 1,000 mg (2 x 500 mg) PO Q6H PRN clonazepam 1.5 mg (1.5 x 1 mg) PO DAILY PRN 30 days gabapentin 400 mg PO TID 30 days ibuprofen 800 mg PO Q8H PRN lidocaine 5% 1 patch topical DAILY tramadol 50 mg PO TID PRN 30 days Tobacco use date assessed: 08/05/23 Dental Screening Dental Screen Date: 08/05/23 HPI 4 month f/u HPI Details Patient comes in today for her follow up visit States that she has been experiencing increased pain in both of her knees lately Is also still experiencing increased pain in her lower back with radiation of pain down both legs at times States that she has gained a lot of weight since her last visit (lost her job and is mostly just staying at home now) and is aware that her recent weight gain is also contributing to the increase in her low back pain and recent increased knee pains She denies any headaches or dizziness Denies any chest pains, no increased SOB No nausea/vomiting, no abdominal pain No change in bowel habits noted States that she is currently still smoking about 5 cigarettes a day Has tried taking Varenicline in the past to help her quit smoking completely but states that the medication made her feel very tired and sleepy States that she needs a few of her Rx refilled, including her Clonazepam and Tramadol but is also requesting for just 5 tablets of Oxycodone 5 mg to help with her recent increased pain if her current meds are not helping enough States that she is aware that I will not continue to refill her opioids and keep her on them indefinitely FORMERLY [facility], [facility] Medical History (Updated 12/20/23 @ 13:41 by Iftikhar Alvarez MD) Spondylosis of lumbosacral spine with radiculopathy Obesity (BMI 30-39.9) Smoker Palpitations Anxiety Gastritis Surgical History (Updated 12/20/23 @ 13:41 by Iftikhar Alvarez MD) H/O tooth extraction Family History Father Medical history unknown Mother Hypertension Family/Other Hypertension Diabetes Social History (Updated 12/20/23 @ 13:44 by Iftikhar Alvarez MD) Housing: Apartment Alcohol intake: never Patient Tobacco Use Status: Current everyday Tobacco user Tobacco use type: Cigarette Cigarettes Per Day: 5 e-Cigarette/Vaping Use: Never Used Second Hand Smoke Exposure: Yes Substance Use Type: Marijuana service: No Current occupational status: employed Cognitive needs: No Hearing needs: No Vision needs: No Questionnaire PHQ-9 Over the last 2 weeks, how often have you been bothered by any of the following problems? 1. Little interest or pleasure in doing things: nearly every day 2. Feeling down, depressed, or hopeless: several days 3. Trouble falling or staying asleep, or sleeping too much: nearly every day 4. Feeling tired or having little energy: more than half the days 5. Poor appetite or overeating: several days 6. Feeling bad about yourself - or that you are a failure or have let yourself or your family down: not at all 7. Trouble concentrating on things, such as reading the newspaper or watching television: several days 8. Moving or speaking so slowly that other people could have noticed. Or the opposite - being so fidgety or restless that you have been moving around a lot more than usual: several days 9. Thoughts that you would be better off or of hurting yourself in some way: not at all Total score: 12 Depression Screening Interpretation: Positive Depression Screening Follow-up: Existing condition and Community Mental Health Worker F/U Depression Screening Done: Yes 23463 - PHQ-9 Billing: Yes Source: Developed by Drs. Hilario Maldonado, Rima Louis, Ashish Silva and colleagues, with an educational sebastián from [employer]. Thrive Questionnaire Date Thrive assessed: 12/20/23 I am a: Patient What is your living situation today?: I have a steady place to live Within the past 12 months, did the food you bought not last and you didn't have the money to get more?: Never true Within the past 12 months, did you worry whether your food would run out before you got money to buy more?: Never true Do you have trouble paying for medicines?: No Do you have trouble getting transportation to medical appointments?: No Do you have trouble paying your heating and electricity bill?: No Do you have trouble taking care of your child, family member or friend?: No Do you have trouble with day-to-day activities such as bathing, preparing meals, shopping, managing finances, etc.?: No Are you currently unemployed and looking for a job?: No Are you interested in more education?: No Please select the resources that you would like help with: None Currently or been in a relationship where the following occur: no concerns reported THRIVE Score: 0 AUDIT C Alcohol Use Questionnaire (AUDIT-C) 1. How often do you have a drink containing alcohol?: Never 3. How often do you have six or more drinks on one occasion?: Never Total Score: 0 Score Reviewed/Action Taken: Yes ALICIA-7 AMB Questionnaire ALICIA-7 Date ALICIA - 7 assessed: 08/05/23 Feeling nervous, anxious, or on edge: 0 = Not at all Not being able to stop or control worryin = Not at all Worrying too much about different things: 0 = Not at all Trouble relaxin = Not at all Being so restless that it is hard to sit still: 0 = Not at all Becoming easily annoyed or irritable: 0 = Not at all Feeling afraid as if something awful might happen: 0 = Not at all Total ALICIA-7 score (0-4 normal; 5-9 mild; 10-14 moderate; 15-21 severe): 0 Source: Developed by Drs. Hilario Maldonado, Rima Louis, Ashish Silva and colleagues, with an educational sebastián from [employer]. Review of Systems Const Denies chills, Denies fatigue, Denies fever(s), Denies headache(s) and Reports weight gain ENT Denies dysphagia, Denies dizziness, Denies otalgia, Denies headache(s), Denies neck pain, Denies odynophagia and Denies sore throat Card Denies chest pain, Denies irregular heart rhythm, Denies palpitations and Denies dyspnea Resp Denies cough, Denies dyspnea and Denies wheezing GI Denies abdominal pain, Denies constipation, Denies dysphagia, Denies heartburn, Denies diarrhea, Denies nausea, Denies odynophagia and Denies vomiting Denies urinary frequency, Denies dysuria, Denies urinary incontinence and Denies urinary urgency Musc Reports back pain (over the lower back - chronic; frequently radiating down both legs), Denies neck pain and Reports radiating pain into limb (into both legs) Skin/Breast Denies rash Neuro Denies dizziness, Denies headache(s) and Denies paresthesias Endo Denies fatigue and Denies palpitations Molina/Lymph Denies easy bruising Aller/Immun Denies wheezing Physical exam (Primary Care) Vital Signs: Last Vital Signs Pulse 75 12/20/23 13:07 BP 112/60 12/20/23 13:07 Pulse Ox 97 12/20/23 13:07 Oxygen Delivery Method Room Air 12/20/23 13:07 BMI result Body Mass Index 32.8 Tobacco/Smoking Status: Tobacco use Status Tobacco use date assessed 08/05/23 12/20/23 13:09 Patient Tobacco Use Status Current everyday Tobacco 12/20/23 13:44 Tobacco use type Cigarette 12/20/23 13:44 e-Cigarette/Vaping Use Never Used 12/20/23 13:44 PHQ-9: PHQ-9 Score PHQ-9: Total score 12 12/20/23 13:59 Depression Screening Interpretation: Positive Depression Screening Follow-up: Existing condition and Community Mental Health Worker F/U Thrive Assessment: Date of Thrive Assessment Date Thrive assessed 12/20/23 12/20/23 13:59 Currently or been in a relationship where the following occur: no concerns reported Const General: no acute distress and alert HENMT Ears: TM's normal bilaterally and EAC's normal Throat: Yes posterior oropharynx normal and Yes tonsils normal (no TP congestion) Neck Neck: Yes no lymphadenopathy and Yes supple Thyroid: Thyroid normal Resp Auscultation: clear to auscultation bilaterally, no rales and no wheezes Cardio Rate: regular rate Rhythm: regular rhythm Heart sounds: no murmurs GI Palpation (GI): Soft to palpation and nontender Auscultation: normal bowel sounds General: Yes no CVA tenderness Back/Spine/Pelvis Back: no CVA tenderness Thoracic/Lumbar Spine: lumbar spinal tenderness Skin Rashes: no rashes Extrem General: Yes no clubbing, cyanosis or edema Right lower extremity: knee Details: tenderness; no swelling Left lower extremity: knee Details: tenderness; no swelling Assessment and Plan Assessment & Plan (1) Spondylosis of lumbosacral spine with radiculopathy: Code(s): M47.27 - Other spondylosis with radiculopathy, lumbosacral region Plan: Lumbar spine MRI done in 2021 revealed (+) right subarticular protrusion at L5-S1 causing mild compression of the traversing right S1 nerve root. There is also a left foraminal protrusion at this level that compresses the exiting left L5 nerve root. No significant abnormality seen at the remaining lumbar levels She was referred to and seen by pain management last year and was sent for PT; she declined offer for SI joint injection and was advised that they do not offer chronic opioid Rx and to discuss with her PCP to consider Belbuca as an oral option for her She was also seen by neurosurgery (Dr. Borja) last year but indicated to them that she is not interested in any surgical intervention of injection Tx at the time Patient states that her low back pain has been fairly controlled over the past couple of years and she is contented with just continuing on her current Rx for now, including Gabapentin 400 mg TID, Lidocaine 5% patches QD PRN and Tramadol 50 mg TID PRN (Rx refilled per request) She requested to have about 5 tablets of Oxycodone 5 mg prescribed for her at this time to help with her breakthrough pains especially as she has been experiencing increased pain in her knees and lower back currently with her recent weight gain Have reminded patient again that I will not continue to prescribe and refill her any other opioid Rx aside from her Tramadol and will give her today a ONE-TIME Rx for the requested Oxycodone 5 mg tablets Reinforced activity and weight-lifting restrictions (2) Gastritis: Code(s): K29.70 - Gastritis, unspecified, without bleeding Qualifiers: Chronicity: unspecified Gastritis bleeding: without bleeding Gastritis type: unspecified gastritis Qualified Code(s): K29.70 - Gastritis, unspecified, without bleeding Plan: Reinforced dietary restrictions Has not needed to take any PPIs in a while now as she has not had any flare up of her GI symptoms (3) Anxiety: Code(s): F41.9 - Anxiety disorder, unspecified Plan: Continue Clonazepam from 1 mg to 1.5 mg QD PRN - Rx refilled Follow up with psychiatry as scheduled (4) Smoker: Code(s): F17.200 - Nicotine dependence, unspecified, uncomplicated Plan: Counseled again on smoking cessation States that she could not tolerate the Varenicline Rx as it was making her feel very tired and sleepy whenever she took them Have advised her for now to try quitting cold turkey (5) Obesity (BMI 30-39.9): Code(s): E66.9 - Obesity, unspecified Plan: Reinforced diet/exercise as tolerated/lose weight - she has gained again over 15 pounds since I last saw her a few months ago Advised that with her significant weight gain, she should try to go and get some labs done [facility] for further evaluation - labs ordered Plan Follow up in 4 months Orders: Orders Comprehensive [place]. Panel Fast Today E78.00 - Pure hypercholesterolemia, unspecified Lipid Panel Today E78.00 - Pure hypercholesterolemia, unspecified UA CC w/rflx Micro + Cult Today R30.0 - Dysuria Vitamin D 25-OH Total Today E55.9 - Vitamin D deficiency, unspecified Complete Blood Count Auto Diff Today D64.9 - Anemia, unspecified TSH reflex Free T4 Today E78.00 - Pure hypercholesterolemia, unspecified Hemoglobin A1c Today R63.5 - Abnormal weight gain, R73.9 - Hyperglycemia, unspecified Medications: New oxycodone Take as needed only for severe pain 5 mg PO DAILY PRN 5 tabs 0RF pain 5 days Refilled tramadol 50 mg PO TID PRN 90 tabs 0RF pain 30 days lidocaine 5% leave on most painful area for up to 12 hrs 1 patch topical DAILY 30 ea 2RF M47.27 - Other spondylosis with radiculopathy, lumbosacral region clonazepam 1.5 mg (1.5 x 1 mg) PO DAILY PRN 45 tabs 0RF anxiety 30 days Coding Level of Care Code Est Pt Level 4 (53334) Diagnoses Spondylosis of lumbosacral spine with radiculopathy M47.27 Gastritis without bleeding, unspecified chronicity, unspecified gastritis type K29.70 Chronicity: unspecified Gastritis bleeding: without bleeding Gastritis type: unspecified gastritis Anxiety F41.9 Smoker F17.200 Obesity (BMI 30-39.9) E66.9
== END 2023-12-20 13:54 | disposition home or self-care (01) ==
PROVIDERS: PCP Internal Medicine; Visit Provider Internal Medicine
DX: M47.27 Other spondylosis with radiculopathy, lumbosacral region (principal); K29.70 Gastritis, unspecified, without bleeding; F41.9 Anxiety disorder, unspecified; F17.210 Nicotine dependence, cigarettes, uncomplicated
CPT/HCPCS: 99214

== ENCOUNTER 2024-02-08 15:36 | Outpatient (AMB) | payer OTHER, SELFPAY ==
[2024-02-08 15:44] VITALS: BP 104/76; PULSE 93; O2SAT 98; BMI 32.7
--- NOTE | 2024-02-08 15:44 | A.OFFPC_ITS ---
Vital Signs 02/08/24 15:44 Height 5 ft Weight 167 lb 8 oz BMI 32.7 BP 104/76 Blood Pressure Location Lt brachial Position Sitting Pulse 93 Pulse Source Pulse Oximeter Pulse Oximetry (%) 98 Oxygen Delivery Method Room Air Intake Visit Reasons: PE Intake Note: Patient is here today for a physical. 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 Required: No Accompanied by: Self / Same As Patient Allergies No Known Allergies [No Known Allergies*] Allergy (Verified 02/08/24 16:00) Medication List - Last Reconciled 02/08/24 by Iftikhar Alvarez MD acetaminophen (Tylenol Extra Strength) 1,000 mg (2 x 500 mg) PO Q6H PRN clonazepam 1.5 mg (1.5 x 1 mg) PO DAILY PRN 30 days gabapentin 400 mg PO TID 30 days ibuprofen 800 mg PO Q8H PRN lidocaine 5% 1 patch topical DAILY tramadol 50 mg PO TID PRN 30 days Tobacco use date assessed: 08/05/23 Dental Screening Dental Screen Date: 08/05/23 HPI PE HPI Details Patient comes in today for her annual physical examination States that she has been experiencing recurrent right-sided headaches for the past month and feels that this has gotten more pronounced and occurring more o ften over the past week She also reports that she has been seeing double on and off over the past week and notes that this often occurs when she has the right-sided headaches She has never had an eye exam done before as she's never had any issues with her vision in the past She denies any dizziness Denies any chest pains, no increased SOB No nausea/vomiting, no abdominal pain No change in bowel habits noted She denies any acute urinary symptoms States that she had her annual gynecology exam and pap smear done last year - goes to [facility] in [place]; has not had her exam this year yet States that she needs a few of her Rx refilled FORMERLY [facility] Medical History (Updated 02/08/24 @ 16:39 by Iftikhar Alvarez MD) Spondylosis of lumbosacral spine with radiculopathy Obesity (BMI 30-39.9) Smoker Palpitations Anxiety Gastritis Surgical History H/O tooth extraction Family History Father Medical history unknown Mother Hypertension Family/Other Hypertension Diabetes Social History Housing: Apartment Alcohol intake: never Patient Tobacco Use Status: Current everyday Tobacco user Tobacco use type: Cigarette Cigarettes Per Day: 5 e-Cigarette/Vaping Use: Never Used Second Hand Smoke Exposure: Yes Substance Use Type: Marijuana service: No Current occupational status: employed Cognitive needs: No Hearing needs: No Vision needs: No Questionnaire Thrive Questionnaire Date Thrive assessed: 12/20/23 ALICIA-7 AMB Questionnaire ALICIA-7 Date ALICIA - 7 assessed: 08/05/23 Source: Developed by Drs. Hilario Maldonado, Rima Louis, Ashish Silva and colleagues, with an educational sebastián from [employer]. Review of Systems Const Denies chills, Denies fatigue, Denies fever(s), Reports headache(s) (recurrent, right-sided - see HPI) and Denies malaise Eyes Denies blurry vision, Reports diplopia (on and off ), Denies irritation, Denies itchy eyes, Denies eye pain and Denies photophobia ENT Denies dysphagia, Denies dizziness, Reports headache(s) (recurrent, right-sided - see HPI), Denies neck pain and Denies odynophagia Card Denies chest pain, Denies rapid heart rate, Denies irregular heart rhythm, Denies palpitations and Denies dyspnea Resp Denies chest congestion, Denies cough, Denies dyspnea and Denies wheezing GI Denies abdominal pain, Denies bloating, Denies constipation, Denies dysphagia, Denies heartburn, Denies diarrhea, Denies nausea, Denies odynophagia and Denies vomiting Denies hematuria, Denies urinary frequency, Denies dysuria, Denies urinary incontinence and Denies urinary urgency Musc Reports back pain (over the lower back - chronic; frequently radiating down both legs), Denies neck pain and Reports radiating pain into limb (into both legs) Skin/Breast Denies breast pain, Denies breast mass, Denies change in pigmentation, Denies lesions, Denies rash and Denies unusual bruising Neuro Denies dizziness, Reports headache(s) (recurrent, right-sided - see HPI) and Denies paresthesias Psych Denies anxiety and Denies depression Endo Denies fatigue and Denies palpitations Molina/Lymph Denies easy bruising Aller/Immun Denies itchy eyes and Denies wheezing Physical exam (Primary Care) Vital Signs: Last Vital Signs Pulse 93 02/08/24 15:44 BP 104/76 02/08/24 15:44 Pulse Ox 98 02/08/24 15:44 Oxygen Delivery Method Room Air 02/08/24 15:44 BMI result Body Mass Index 32.7 Tobacco/Smoking Status: Tobacco use Status Tobacco use date assessed 08/05/23 02/08/24 15:45 Patient Tobacco Use Status Current everyday Tobacco 02/08/24 15:45 Tobacco use type Cigarette 02/08/24 15:45 e-Cigarette/Vaping Use Never Used 02/08/24 15:45 Thrive Assessment: Date of Thrive Assessment Date Thrive assessed 12/20/23 02/08/24 15:45 Const General: no acute distress, alert and awake Orientation/consciousness: patient oriented x3 HENMT Head: Yes normocephalic, Yes atraumatic, Yes scalp tenderness (over the right temporal area and right preauricular area) and Yes Temporal artery tenderness present (on the right side) Ears: external ears normal, TM's normal bilaterally and EAC's normal General nose exam: No nasal discharge present Face and sinus: Yes normal facial exam and Yes sinuses nontender Teeth and gingiva: dentition normal Throat: Yes posterior oropharynx normal and Yes tonsils normal (no TP congestion) Eyes Eyelids: Yes eyelids normal Conjunctivae: conjunctivae normal Pupils: Equal, round and reactive pupils present EOM: EOMs intact bilaterally Direct Ophthalmoscopy: No photophobia Neck Neck: Yes no lymphadenopathy and Yes supple Thyroid: Thyroid normal Resp Auscultation: clear to auscultation bilaterally, no rales and no wheezes Cardio Rate: regular rate Rhythm: regular rhythm Heart sounds: no murmurs GI Palpation (GI): Soft to palpation, nontender and No hepatosplenomegaly present Auscultation: normal bowel sounds General: Yes no CVA tenderness Back/Spine/Pelvis Back: no CVA tenderness Thoracic/Lumbar Spine: lumbar spinal tenderness Skin Lesions: no lesions Rashes: no rashes Neuro General: patient oriented x3, moves all extremities, no focal motor deficits and CN's II-XI intact bilaterally Cranial nerves: Yes Equal, round and reactive pupils present Cognition (Neuro): normal cognition Gait exam (Neuro): Normal gait present Extrem General: Yes no clubbing, cyanosis or edema Right lower extremity: knee Details: tenderness; no swelling Left lower extremity: knee Details: tenderness; no swelling Assessment and Plan Assessment & Plan (1) Annual physical exam: Code(s): Z00.00 - Encounter for general adult medical examination without abnormal findings Plan: Check labs Patient states that she goes to [facility] in [place] for her annual gynecology exam and pap smear and thinks that it is time for her to get these done again - states that she will call them to schedule an appointment for this [facility] (2) Right sided temporal headache: Code(s): R51.9 - Headache, unspecified Plan: Patient currently presents with significant tenderness over the right temporal arterial area even with minimal palpation although the right temporal artery does not look or appear prominent on visual inspection She also has tenderness above the right ear and over the right preauricular area on palpation, and with the aforementioned on and off double vision that she has been experiencing recently, these raise concerns for possible temporal arteritis Will send her to the lab [facility] to check her sed rate and CBC and advised patient that if her sed rate is very high and suggestive of giant cell arteritis, we will need to start her on high dose oral Prednisone and refer her for urgent right temporal artery Bx [facility]GA LIDIA (3) Spondylosis of lumbosacral spine with radiculopathy: Code(s): M47.27 - Other spondylosis with radiculopathy, lumbosacral region Plan: Lumbar spine MRI done in 2021 revealed (+) right subarticular protrusion at L5- S1 causing mild compression of the traversing right S1 nerve root. There is also a left foraminal protrusion at this level that compresses the exiting left L5 nerve root. No significant abnormality seen at the remaining lumbar levels She was referred to and seen by pain management last year and was sent for PT; she declined offer for SI joint injection and was advised that they do not offer chronic opioid Rx and to discuss with her PCP to consider Belbuca as an oral option for her She was also seen by neurosurgery (Dr. Borja) last year but indicated to them that she is not interested in any surgical intervention of injection Tx at the time Patient states that her low back pain has been fairly controlled over the past couple of years and she is contented with just continuing on her current Rx for now, including Gabapentin 400 mg TID, Lidocaine 5% patches QD PRN and Tramadol 50 mg TID PRN (Rx refilled) Reinforced activity and weight-lifting restrictions (4) Gastritis: Code(s): K29.70 - Gastritis, unspecified, without bleeding Qualifiers: Gastritis type: unspecified gastritis Chronicity: unspecified Gastritis bleeding: without bleeding Qualified Code(s): K29.70 - Gastritis, unspecified, without bleeding Plan: Reinforced dietary restrictions She has not needed to take any PPIs in a while now as she has not had any flare up of her GI symptoms (5) Anxiety: Code(s): F41.9 - Anxiety disorder, unspecified Plan: Continue Clonazepam from 1 mg to 1.5 mg QD PRN - Rx refilled Follow up with psychiatry as scheduled (6) Smoker: Code(s): F17.200 - Nicotine dependence, unspecified, uncomplicated Plan: Counseled again on smoking cessation States that she could not tolerate the Varenicline Rx as it was making her feel very tired and sleepy whenever she took them Have advised her for now to try quitting cold turkey (7) Obesity (BMI 30-39.9): Code(s): E66.9 - Obesity, unspecified Plan: Reinforced diet/exercise as tolerated/lose weight Plan Follow up in 4 months Orders: Orders C Reactive Protein Today R51.9 - Headache, unspecified Erythrocyte Sedimentation Rate Today R51.9 - Headache, unspecified Medications: Refilled gabapentin 400 mg PO TID 30 days 90 caps 1RF clonazepam 1.5 mg (1.5 x 1 mg) PO DAILY 30 days PRN 45 tabs 0RF anxiety tramadol 50 mg PO TID 30 days PRN 90 tabs 0RF pain Coding Level of Care Code Est Pt Prev Care 18-39y(43264) Diagnoses Annual physical exam Z00.00 Right sided temporal headache R51.9 Spondylosis of lumbosacral spine with radiculopathy M47.27 Gastritis without bleeding, unspecified chronicity, unspecified gastritis type K29.70 Gastritis type: unspecified gastritis Chronicity: unspecified Gastritis bleeding: without bleeding Anxiety F41.9 Smoker F17.200 Obesity (BMI 30-39.9) E66.9
== END 2024-02-08 16:46 | disposition home or self-care (01) ==
PROVIDERS: PCP Internal Medicine; Visit Provider Internal Medicine
DX: Z00.00 Encounter for general adult medical examination without abnormal findings (principal); R51.9 Headache, unspecified; M47.27 Other spondylosis with radiculopathy, lumbosacral region; K29.70 Gastritis, unspecified, without bleeding; F41.9 Anxiety disorder, unspecified
CPT/HCPCS: 99395

== ENCOUNTER 2024-02-08 16:50 | Outpatient (REF) | payer OTHER, SELFPAY ==
[2024-02-08 17:07] LABS: MANUAL DIFF FLAG NO
[2024-02-08 17:44] LABS: Appearance Urine Turbid; Color Urine Dark Yellow; Glucose Urine UA Negative (Negative); Leukocyte Esterase Urine Small (1+) (Negative); Nitrite Urine Negative (Negative); PH 5.5 (5.0-9.0); UMIC TRIGGER UACC YES; Urine Blood Large (3+) (Negative); Urine Ketones Trace mg/dL (Negative); Urine Protein Trace mg/dL (Neg-Trace)
[2024-02-08 17:46] LABS: Basophils Percent Auto 0.4 % (0-2); Eosinophils Absolute Auto 0.1 X10*3/uL (0.0-0.4); Eosinophils Percent Auto 1.3 % (0-4); Imm Gran Abs Auto 0.05 X10*3/uL (0.00-0.03); Imm Gran Pct Auto 0.5 % (0.0-0.4); Lymphocytes Absolute Auto 2.5 X10*3/uL (1.2-4.9); Lymphocytes Percent Auto 24.7 % (20-40); Mean Corpuscular HGB Conc 34.1 g/dl (31.0-35.0); Mean Corpuscular Hemoglobin 30.2 pg (27.0-33.0); Mean Corpuscular Volume 88.6 fL (80.0-98.0); Monocytes Absolute Auto 0.9 X10*3/uL (0.1-1.2); Monocytes Percent Auto 8.9 % (2-11); Neutrophils Absolute Auto 6.4 x10*3/uL (2.0-8.3); Neutrophils Percent Auto 64.2 % (45-73); Platelet Count 209 X10*3/uL (160-400); Red Blood Count 4.63 X10*6/uL (4.20-5.50); Red Cell Distribution Width 14.1 % (11.0-16.0); White Blood Count 9.9 X10*3/uL (4.8-10.8)
[2024-02-08 17:50] LABS: Bacteria Urine 2+ (None Seen); Hyaline Casts Urine 0-2 /LPF (0-2); UACC Culture Trigger YES
[2024-02-08 17:50] LABS: Estimated Average Glucose 94 mg/dL; Hemoglobin A1c % 4.9 % (<6.0)
[2024-02-08 18:26] LABS: Erythrocyte Sedimentation Rate 7 MM/HR (0-20)
[2024-02-08 18:29] LABS: Alanine Aminotransferase 15 U/L (0-31); Albumin Level 4.3 g/dL (3.5-5.0); Alkaline Phosphatase 54 U/L (39-117); Anion Gap 13 (12-20); Aspartate Amino Transferase 14 U/L (5-31); Bilirubin Total 0.2 mg/dL (0.0-1.0); Blood Urea Nitrogen 4 mg/dL (9-16); Calcium 9.2 mg/dL (8.4-10.2); Carbon Dioxide 27 mmol/L (22-29); Chloride 104 mmol/L (96-108); Cholesterol 196 mg/dL (<200); Estimated Glomerular Filt Rate > 60; Glucose Fasting 71 mg/dL (60-99); HDL Cholesterol 44 mg/dL (>40); LDL Cholesterol Calculated 133 mg/dL (<100); Potassium 4.1 mmol/L (3.3-5.1); Sodium 140 mmol/L (135-145); Total Protein 7.4 g/dL (6.5-8.0); Triglycerides 99 mg/dL (<150)
[2024-02-08 18:44] LABS: TSH reflex Free T4 1.03 uIU/mL (0.32-4.0); Vitamin D 25-OH Total 25.5 ng/mL (>30)
== END 2024-02-08 16:51 | disposition home or self-care (01) ==
LOC: HO.LAB 16:50
PROVIDERS: PCP Internal Medicine; Visit Provider Internal Medicine
DX: Z00.00 Encounter for general adult medical examination without abnormal findings (principal); E78.00 Pure hypercholesterolemia, unspecified; D64.9 Anemia, unspecified; R51.9 Headache, unspecified; E55.9 Vitamin D deficiency, unspecified; R73.9 Hyperglycemia, unspecified; R30.0 Dysuria
CPT/HCPCS: 36415; 80053; 80061; 81001; 82306; 83036; 84443; 85025; 85652; 86140; 87086

== ENCOUNTER 2024-04-26 09:28 | Outpatient (REF) | payer OTHER, SELFPAY ==
[2024-04-30 17:07] LABS: Mumps Virus IgG Antibody <9.00 AU/mL; Rubella IgG Antibody 0.91 Index
== END 2024-04-26 09:29 | disposition home or self-care (01) ==
LOC: HO.LAB 09:28
PROVIDERS: PCP Internal Medicine; Visit Provider Internal Medicine
DX: Z28.39 Other underimmunization status (principal)
CPT/HCPCS: 36415; 86735; 86762; 86765

== ENCOUNTER 2024-04-27 10:32 | Outpatient (AMB) | payer OTHER, SELFPAY ==
--- NOTE | 2024-04-27 10:36 | A.OFFPC_ITS ---
Vital Signs 04/27/24 10:42 Height 5 ft Weight 152 lb 6 oz BMI 29.8 BP 100/64 Blood Pressure Location Lt brachial Position Sitting Intake Visit Reasons: lumbar spondylosis, anxiety Intake Note: Patient is here to follow up on Lumbar spondylosis, Anxiety. Pt decline flu shot today. Program Administrator Required: No Barrel Rifler Button: Not Required per policy Accompanied by: Self / Same As Patient Allergies No Known Allergies [No Known Allergies*] Allergy (Verified 04/27/24 11:17) Medication List - Last Reconciled 04/27/24 by Iftikhar Alvarez MD acetaminophen (Tylenol Extra Strength) 1,000 mg (2 x 500 mg) PO Q6H PRN clonazepam 1.5 mg (1.5 x 1 mg) PO DAILY PRN 30 days gabapentin 400 mg PO TID 30 days ibuprofen 800 mg PO Q8H PRN lidocaine 5% 1 patch topical DAILY naloxone 4 mg/actuation (Narcan) 4 mg intranasal Q2M PRN tramadol 50 mg PO TID PRN 30 days Tobacco use date assessed: 04/27/24 Dental Screening Dental Screen Date: 08/05/23 HPI lumbar spondylosis, anxiety HPI Details Patient comes in today for her follow up visit States that she's had increased cough and congestion for about a month now She is coughing up thick dark-colored phlegm often for the past few weeks and states that her cough feels a lot worse at night She denies any fever or sore throat She admits to still smoking cigarettes but states that she has cut down from 10 sticks a day to now just 4 a day still smoke 4 sticks a day States that her chest feels congested and tight at times and she sometimes feel like she cannot catch her breath; she denies any chest pains Would like to have a chest x-ray done to see if she has pneumonia Have advised her that the x-rays were already ordered yesterday when she called and asked for them and she can and go get them done now at the hospital after she leaves the office today She denies any chest pains No nausea/vomiting, no abdominal pain No change in bowel habits noted [facility] Medical History (Updated 04/27/24 @ 13:28 by Iftikhar Alvarez MD) Overweight (BMI 25.0-29.9) Spondylosis of lumbosacral spine with radiculopathy Obesity (BMI 30-39.9) Smoker Palpitations Anxiety Gastritis Surgical History H/O tooth extraction Family History Father Medical history unknown Mother Hypertension Family/Other Hypertension Diabetes Social History Housing: Apartment Alcohol intake: never Patient Tobacco Use Status: Current everyday Tobacco user Tobacco use type: Cigarette Cigarette Packs Per Day: 0.5 Cigarettes Per Day: 4 e-Cigarette/Vaping Use: Never Used Second Hand Smoke Exposure: Yes Substance Use Type: Marijuana service: No Current occupational status: employed Cognitive needs: No Hearing needs: No Vision needs: No Questionnaire Thrive Questionnaire Date Thrive assessed: 12/20/23 AUDIT C Alcohol Use Questionnaire (AUDIT-C) 3. How often do you have six or more drinks on one occasion?: Never Total Score: 0 ALICIA-7 AMB Questionnaire ALICIA-7 Date ALICIA - 7 assessed: 08/05/23 Source: Developed by Drs. Hilario Maldonado, Rima Louis, Ashish Silva and colleagues, with an educational sebastián from [email or web address] Review of Systems Const Denies chills, Reports fatigue, Denies fever(s) and Denies headache(s) ENT Denies dysphagia, Denies dizziness, Denies otalgia, Denies headache(s), Denies neck pain, Denies odynophagia and Denies sore throat Card Denies chest pain, Denies rapid heart rate, Denies palpitations and Reports dyspnea on exertion (at times) Resp Reports chest congestion (chest feels tight at times), Reports cough (recurrent; coughs up thick, dark phlegm; worse at night ), Denies hemoptysis, Reports dyspnea on exertion (at times) and Denies wheezing GI Denies abdominal pain, Denies constipation, Denies dysphagia, Denies heartburn, Denies diarrhea, Denies nausea, Denies odynophagia and Denies vomiting Denies hematuria, Denies urinary frequency, Denies dysuria, Denies urinary incontinence and Denies urinary urgency Musc Reports back pain (over the lower back - chronic; frequently radiating down both legs), Denies neck pain and Reports radiating pain into limb (into both legs) Skin/Breast Denies rash Neuro Denies dizziness, Denies headache(s) and Denies paresthesias Psych Denies anxiety and Denies depression Endo Reports fatigue and Denies palpitations Molina/Lymph Denies easy bruising Aller/Immun Denies wheezing Physical exam (Primary Care) Vital Signs: Last Vital Signs BP 100/64 04/27/24 10:42 BMI result Body Mass Index 29.8 Tobacco/Smoking Status: Tobacco use Status Tobacco use date assessed 04/27/24 04/27/24 10:38 Patient Tobacco Use Status Current everyday Tobacco 04/27/24 10:51 Tobacco use type Cigarette 04/27/24 10:51 e-Cigarette/Vaping Use Never Used 04/27/24 10:51 Thrive Assessment: Date of Thrive Assessment Date Thrive assessed 12/20/23 04/27/24 10:38 Const General: no acute distress and alert HENMT Ears: external ears normal and TM's normal bilaterally Throat: Yes posterior oropharynx normal and Yes tonsils normal (no TP congestion) Neck Neck: Yes no lymphadenopathy and Yes supple Thyroid: Thyroid normal Resp Auscultation: no crackles, no rales, rhonchi (scattered) throughout, no wheezes, diminished lung sounds (slightly) bilateral and bronchial breath sounds (occasional) bilateral Cardio Rate: regular rate Rhythm: regular rhythm Heart sounds: no murmurs GI Palpation (GI): Soft to palpation and nontender Auscultation: normal bowel sounds General: Yes no CVA tenderness Back/Spine/Pelvis Back: no CVA tenderness Thoracic/Lumbar Spine: lumbar spinal tenderness Skin Rashes: no rashes Extrem General: Yes no clubbing, cyanosis or edema Right lower extremity: knee Details: tenderness; no swelling Left lower extremity: knee Details: tenderness; no swelling Coding Level of Care Code Est Pt Level 3 (76282) Diagnoses Acute bronchitis, unspecified organism J20.9 Bronchitis organism: unspecified organism Spondylosis of lumbosacral spine with radiculopathy M47.27 Gastritis without bleeding, unspecified chronicity, unspecified gastritis type K29.70 Gastritis type: unspecified gastritis Chronicity: unspecified Gastritis bleeding: without bleeding Anxiety F41.9 Smoker F17.200 Overweight (BMI 25.0-29.9) E66.3 Assessment & Plan Assessment & Plan (1) Acute bronchitis: Code(s): J20.9 - Acute bronchitis, unspecified Category: Medical Qualifiers: Bronchitis organism: unspecified organism Qualified Code(s): J20.9 - Acute bronchitis, unspecified Plan: Have advised patient that her chest x-rays have been ordered since yesterday and she can just go and get them done OLGA LIDIA Will start her empirically for now on Augmentin 875 mg BID x 7 days Will also start her for now on Albuterol HFA 1 to 2 inhalations Q 6 hours PRN - is advised that she can stop using this at any time when she no longer has any problems with her breathing and/or coughing Have reminded her again that quitting smoking completely can only help with her recurrent respiratory symptoms (2) Spondylosis of lumbosacral spine with radiculopathy: Code(s): M47.27 - Other spondylosis with radiculopathy, lumbosacral region Category: Medical Plan: Lumbar spine MRI done in 2021 revealed (+) right subarticular protrusion at L5- S1 causing mild compression of the traversing right S1 nerve root. There is also a left foraminal protrusion at this level that compresses the exiting left L5 nerve root. No significant abnormality seen at the remaining lumbar levels She was referred to and seen by pain management last year and was sent for PT; she declined offer for SI joint injection and was advised that they do not offer chronic opioid Rx and to discuss with her PCP to consider Belbuca as an oral option for her She was also seen by neurosurgery (Dr. Borja) last year but indicated to them that she is not interested in any surgical intervention of injection Tx at the time Patient states that her low back pain has been fairly controlled over the past couple of years and she is contented with just continuing on her current Rx for now, including Gabapentin 400 mg TID, Lidocaine 5% patches QD PRN and Tramadol 50 mg TID PRN Reinforced activity and weight-lifting restrictions (3) Gastritis: Code(s): K29.70 - Gastritis, unspecified, without bleeding Category: Medical Qualifiers: Gastritis type: unspecified gastritis Chronicity: unspecified Gastritis bleeding: without bleeding Qualified Code(s): K29.70 - Gastritis, unspecified, without bleeding Plan: Reinforced dietary restrictions She has not needed to take any PPIs in a while now as she has not had any flare up of her GI symptoms (4) Anxiety: Code(s): F41.9 - Anxiety disorder, unspecified Category: Medical Plan: Continue Clonazepam from 1 mg to 1.5 mg QD PRN Follow up with psychiatry as scheduled (5) Smoker: Code(s): F17.200 - Nicotine dependence, unspecified, uncomplicated Category: Social Hx Plan: Counseled again on smoking cessation States that she could not tolerate the Varenicline Rx as it was making her feel very tired and sleepy whenever she took them Have advised her to just try quitting cold turkey , which she states she is currently still working on (6) Overweight (BMI 25.0-29.9): Code(s): E66.3 - Overweight Category: Medical Plan: Reinforced diet/exercise as tolerated/lose weight - she has somehow been able to lose at least 10 to 15 pounds since her last visit Plan Follow up as scheduled in June 2024 Medications: New amoxicillin-pot clavulanate 875-125 mg 1 tab PO BID 14 tabs 0RF 7 days Ventolin HFA 90 mcg/actuation (albuterol sulfate) 2 puffs inhalation Q6H PRN 18 grams 0RF shortness of breath or wheezing 30 days NS
[2024-04-27 10:42] VITALS: BP 100/64; BMI 29.8
== END 2024-04-27 11:25 | disposition home or self-care (01) ==
PROVIDERS: PCP Internal Medicine; Visit Provider Internal Medicine
DX: J20.9 Acute bronchitis, unspecified (principal); M47.27 Other spondylosis with radiculopathy, lumbosacral region; K29.70 Gastritis, unspecified, without bleeding; F41.9 Anxiety disorder, unspecified; F17.200 Nicotine dependence, unspecified, uncomplicated; E66.3 Overweight

== ENCOUNTER → 2024-04-27 10:32 | Outpatient (BNVA) | payer OTHER, SELFPAY | PROVIDERS: PCP Internal Medicine; Visit Provider Internal Medicine | DX: J20.9 Acute bronchitis, unspecified (principal); M47.27 Other spondylosis with radiculopathy, lumbosacral region; K29.70 Gastritis, unspecified, without bleeding; E66.3 Overweight; F41.9 Anxiety disorder, unspecified; F17.200 Nicotine dependence, unspecified, uncomplicated; Z71.6 Tobacco abuse counseling | CPT/HCPCS: 99212 ==

== ENCOUNTER 2024-05-02 09:04 | Outpatient (REF) | payer OTHER, SELFPAY ==
--- NOTE | ~2024-05-02 | XR_ITS ---
EXAMINATION: XR CHEST 2 VIEWS CLINICAL INFORMATION: Cough. COMPARISON: Prior mammograms, most recently 11/24/2020. TECHNIQUE: Frontal and lateral views of the chest were obtained. FINDINGS: The heart, great vessels, pulmonary vasculature and mediastinum are normal. The lungs show no focal infiltrate, effusion or pneumothorax. There is no acute osseous abnormality. XR/XR chest 2V IMPRESSION: No active cardiopulmonary disease. Electronically signed by: Yariel Cannon MD 06/01/2024 01:45 PM [facility]
== END 2024-05-02 09:05 | disposition home or self-care (01) ==
LOC: HO.XRAY 09:04
PROVIDERS: PCP Internal Medicine; Visit Provider Internal Medicine
DX: R05.9 Cough, unspecified (principal)
CPT/HCPCS: 71046

== ENCOUNTER 2024-06-13 14:52 | Outpatient (AMB) | payer OTHER, SELFPAY ==
[2024-06-13 14:53] VITALS: BP 100/70; PULSE 68; O2SAT 97; BMI 30.4
--- NOTE | 2024-06-13 14:53 | MHC.PC.OV ---
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: No Accompanied by: Self / Same As Patient Allergies No Known Allergies [No Known Allergies*] Allergy (Verified 06/13/24 15:13) Medication List - Last Reconciled 06/13/24 by Iftikhar Alvarez MD acetaminophen (Tylenol Extra Strength) 1,000 mg (2 x 500 mg) PO Q6H PRN clonazepam 1.5 mg (1.5 x 1 mg) PO DAILY PRN 30 days gabapentin 400 mg PO TID 30 days ibuprofen 800 mg PO Q8H PRN lidocaine 5% 1 patch topical DAILY naloxone 4 mg/actuation (Narcan) 4 mg intranasal Q2M PRN tramadol 50 mg PO TID PRN 30 days Ventolin HFA 90 mcg/actuation (albuterol sulfate) 2 puffs inhalation Q6H PRN 30 days NS Tobacco use date assessed: 06/13/24 Dental Screening Dental Screen Date: 06/13/24 Did you have a dental visit in the last 12 months?: No Did you have a dental problem in the last 6 months where you did not have access to dental care?: No Was dental information given to patient?: No HPI Depression HPI Details Patient comes in today for her follow-up visit States that she quit smoking at the end of May 2024 (about 2 weeks ago) but her chest still feels tight often Also notes (+) HERRMANN frequently; denies any chest pains She had normal chest x-rays done a few weeks ago on 05/02/2024 She denies any headaches or dizziness; denies any fever or sore throat No nausea/vomiting, no abdominal pain No change in bowel habits noted Adds that she is also having trouble getting her clonazepam Rx refilled and that she has been out of her clonazepam for a few weeks now - states that she has been on a medication for years and she does not understand why she is only now having problems getting it refilled [facility] Medical History Overweight (BMI 25.0-29.9) Spondylosis of lumbosacral spine with radiculopathy Obesity (BMI 30-39.9) Smoker Palpitations Anxiety Gastritis Surgical History H/O tooth extraction Family History Father Medical history unknown Mother Hypertension Family/Other Hypertension Diabetes Social History Housing: Apartment Alcohol intake: never Patient Tobacco Use Status: Current everyday Tobacco user Tobacco use type: Cigarette Cigarette Packs Per Day: 0.5 Cigarettes Per Day: 4 e-Cigarette/Vaping Use: Never Used Second Hand Smoke Exposure: Yes Substance Use Type: Marijuana service: No Current occupational status: employed Cognitive needs: No Hearing needs: No Vision needs: No Questionnaire PHQ-9 Over the last 2 weeks, how often have you been bothered by any of the following problems? 1. Little interest or pleasure in doing things: nearly every day 2. Feeling down, depressed, or hopeless: several days 3. Trouble falling or staying asleep, or sleeping too much: nearly every day 4. Feeling tired or having little energy: more than half the days 5. Poor appetite or overeating: several days 6. Feeling bad about yourself - or that you are a failure or have let yourself or your family down: not at all 7. Trouble concentrating on things, such as reading the newspaper or watching television: several days 8. Moving or speaking so slowly that other people could have noticed. Or the opposite - being so fidgety or restless that you have been moving around a lot more than usual: several days 9. Thoughts that you would be better off or of hurting yourself in some way: not at all Total score: 12 Depression Screening Interpretation: Positive Depression Screening Follow-up: Existing condition and Community Mental Health Worker F/U Depression Screening Done: Yes 65299 - PHQ-9 Billing: Yes Source: Developed by Drs. Hilario Maldonado, Rima Louis, Ashish Silva and colleagues, with an educational sebastián from [employer]. Thrive Questionnaire Date Thrive assessed: 06/13/24 I am a: Patient What is your living situation today?: I have a steady place to live Within the past 12 months, did the food you bought not last and you didn't have the money to get more?: Never true Within the past 12 months, did you worry whether your food would run out before you got money to buy more?: Never true Do you have trouble paying for medicines?: No Do you have trouble getting transportation to medical appointments?: No Do you have trouble paying your heating and electricity bill?: No Do you have trouble taking care of your child, family member or friend?: No Do you have trouble with day-to-day activities such as bathing, preparing meals, shopping, managing finances, etc.?: No Are you currently unemployed and looking for a job?: No Are you interested in more education?: No Please select the resources that you would like help with: None Currently or been in a relationship where the following occur: No concerns reported THRIVE Score: 0 AUDIT C Alcohol Use Questionnaire (AUDIT-C) 2. How many drinks containing alcohol do you have on a typical day when you are drinking?: 5 or 6 3. How often do you have six or more drinks on one occasion?: Never Total Score: 2 Score Reviewed/Action Taken: Yes ALICIA-7 AMB Questionnaire ALICIA-7 Date ALICIA - 7 assessed: 06/13/24 Feeling nervous, anxious, or on edge: 0 = Not at all Not being able to stop or control worryin = Not at all Worrying too much about different things: 0 = Not at all Trouble relaxin = Not at all Being so restless that it is hard to sit still: 0 = Not at all Becoming easily annoyed or irritable: 0 = Not at all Feeling afraid as if something awful might happen: 0 = Not at all Total ALICIA-7 score (0-4 normal; 5-9 mild; 10-14 moderate; 15-21 severe): 0 Source: Developed by Drs. Hilario Maldonado, Rima Louis, Ashish Silva and colleagues, with an educational sebastián from [employer]. Review of Systems Const Denies chills, Reports fatigue, Denies fever(s) and Denies headache(s) ENT Denies dysphagia, Denies dizziness, Denies otalgia, Denies headache(s), Denies neck pain, Denies odynophagia and Denies sore throat Card Denies chest pain, Denies rapid heart rate, Denies palpitations and Reports dyspnea on exertion (at times) Resp Denies chest congestion, Denies cough, Denies hemoptysis and Reports dyspnea on exertion (at times) GI Denies abdominal pain, Denies constipation, Denies dysphagia, Denies heartburn, Denies diarrhea, Denies nausea, Denies odynophagia and Denies vomiting Denies hematuria, Denies urinary frequency, Denies dysuria, Denies urinary incontinence and Denies urinary urgency Musc Reports back pain (over the lower back - chronic; frequently radiating down both legs), Denies neck pain and Reports radiating pain into limb (into both legs) Skin/Breast Denies rash Neuro Denies dizziness, Denies headache(s) and Denies paresthesias Psych Reports anxiety and Denies depression Endo Reports fatigue and Denies palpitations Molina/Lymph Denies easy bruising Physical exam (Primary Care) Vital Signs: Last Vital Signs Pulse 68 06/13/24 14:53 BP 100/70 06/13/24 14:53 Pulse Ox 97 06/13/24 14:53 Oxygen Delivery Method Room Air 06/13/24 14:53 BMI result Body Mass Index 30.4 Tobacco/Smoking Status: Tobacco use Status Tobacco use date assessed 06/13/24 06/13/24 15:00 Patient Tobacco Use Status Current everyday Tobacco 06/13/24 15:00 Tobacco use type Cigarette 06/13/24 15:00 e-Cigarette/Vaping Use Never Used 06/13/24 15:00 PHQ-9: PHQ-9 Score PHQ-9: Total score 12 06/14/24 06:17 Depression Screening Interpretation: Positive Depression Screening Follow-up: Existing condition and Community Mental Health Worker F/U Thrive Assessment: Date of Thrive Assessment Date Thrive assessed 06/13/24 06/13/24 15:00 Currently or been in a relationship where the following occur: No concerns reported Const General: no acute distress and alert HENMT Ears: external ears normal and TM's normal bilaterally Throat: Yes posterior oropharynx normal and Yes tonsils normal (no TP congestion) Neck Neck: Yes no lymphadenopathy and Yes supple Thyroid: Thyroid normal Resp Auscultation: no crackles, no rales, rhonchi (scattered) throughout, no wheezes, diminished lung sounds (slightly) bilateral and bronchial breath sounds (occasional) bilateral Cardio Rate: regular rate Rhythm: regular rhythm Heart sounds: no murmurs GI Palpation (GI): Soft to palpation and nontender Auscultation: normal bowel sounds General: Yes no CVA tenderness Back/Spine/Pelvis Back: no CVA tenderness Thoracic/Lumbar Spine: lumbar spinal tenderness Skin Rashes: no rashes Extrem General: Yes no clubbing, cyanosis or edema Right lower extremity: knee Details: tenderness; no swelling Left lower extremity: knee Details: tenderness; no swelling Coding Level of Care Code Est Pt Level 4 (95205) Diagnoses Spondylosis of lumbosacral spine with radiculopathy M47.27 Gastritis without bleeding, unspecified chronicity, unspecified gastritis type K29.70 Gastritis type: unspecified gastritis Chronicity: unspecified Gastritis bleeding: without bleeding Anxiety F41.9 Smoker F17.200 Overweight (BMI 25.0-29.9) E66.3 Additional Codes PHQ-9 - 99567 - PHQ-9 Billing: Yes ([id number]) Assessment & Plan Assessment & Plan (1) Spondylosis of lumbosacral spine with radiculopathy: Code(s): M47.27 - Other spondylosis with radiculopathy, lumbosacral region Category: Medical Plan: Her lumbar spine MRI done in 2021 revealed (+) right subarticular protrusion at L5-S1 causing mild compression of the traversing right S1 nerve root. There is also a left foraminal protrusion at this level that compresses the exiting left L5 nerve root. No significant abnormality seen at the remaining lumbar levels She was referred to and seen by pain management last year and was sent for PT; she declined offer for SI joint injection and was advised that they do not offer chronic opioid Rx and to discuss with her PCP to consider Belbuca as an oral option for her She was also seen by neurosurgery (Dr. Borja) last year but indicated to them that she is not interested in any surgical intervention of injection Tx at the time Patient states that her low back pain has been fairly controlled over the past couple of years and she is contented with just continuing on her current Rx for now, including Gabapentin 400 mg TID, Lidocaine 5% patches QD PRN and Tramadol 50 mg TID PRN Reinforced activity and weight-lifting restrictions (2) Gastritis: Code(s): K29.70 - Gastritis, unspecified, without bleeding Category: Medical Qualifiers: Gastritis type: unspecified gastritis Chronicity: unspecified Gastritis bleeding: without bleeding Qualified Code(s): K29.70 - Gastritis, unspecified, without bleeding Plan: Reinforced dietary restrictions She has not needed to take any PPIs in a while now as she has not had any flare up of her GI symptoms (3) Anxiety: Code(s): F41.9 - Anxiety disorder, unspecified Category: Medical Plan: Patient states that she was doing well on Clonazepam from 1 mg to 1.5 mg QD PRN for years but is upset that she is not able to get her Rx refilled any longer as her insurance is denying to cover her Rx now, even with a prior authorization request from the office, which was denied Have advised patient that currently, all insurances do not want to cover simultaneous prescriptions of opioids and benzodiazepines and have advised patient that at this time, she will have to choose between continuing on her opioids or benzodiazepine Have advised her that in place of her benzodiazepine, there are other more appropriate medications for maintenance treatment of her anxiety that she can start taking and this is what she should consider rather than just continuing on her clonazepam on an as-needed basis for anxiety Patient is still upset at not being able to get her clonazepam refilled and states that she will take some time to think about this and will give us a call back if she decides to start taking something else for her anxiety Would like to try having her dose lowered back to 1 mg daily for now to see if this will be covered as she now recalls that her issues with insurance coverage started only when she asked to have her dose raised from 1 mg to 1.5 mg daily recently Follow up with psychiatry as scheduled (4) Smoker: Code(s): F17.200 - Nicotine dependence, unspecified, uncomplicated Category: Social Hx Plan: Patient is counseled again on smoking cessation States that she could not tolerate the Varenicline Rx as it was making her feel very tired and sleepy whenever she took them Have advised her to just try quitting cold turkey , which she states she is currently still working on States that she is currently still experiencing some exertional dyspnea and would like to have this further evaluated Will send her for PFTs for further evaluation (5) Overweight (BMI 25.0-29.9): Code(s): E66.3 - Overweight Category: Medical Plan: Reinforced diet/exercise as tolerated/lose weight Plan Follow-up as scheduled in August 2024 Orders: Orders PFT pulmonary function test 06/13/24 R06.00 - Dyspnea, unspecified, Z87.891 - Personal history of nicotine dependence Medications: Changed From clonazepam 1.5 mg (1.5 x 1 mg) PO DAILY 30 days PRN 45 tabs 0RF anxiety To clonazepam 1 mg PO DAILY 30 days PRN 30 tabs 0RF anxiety
== END 2024-06-13 15:26 | disposition home or self-care (01) ==
PROVIDERS: PCP Internal Medicine; Visit Provider Internal Medicine
DX: M47.27 Other spondylosis with radiculopathy, lumbosacral region (principal); K29.70 Gastritis, unspecified, without bleeding; F41.9 Anxiety disorder, unspecified; F17.200 Nicotine dependence, unspecified, uncomplicated; E66.3 Overweight

== ENCOUNTER → 2024-06-13 14:52 | Outpatient (BNVA) | payer OTHER, SELFPAY | PROVIDERS: PCP Internal Medicine; Visit Provider Internal Medicine | DX: M47.27 Other spondylosis with radiculopathy, lumbosacral region (principal); K29.70 Gastritis, unspecified, without bleeding; F41.9 Anxiety disorder, unspecified; E66.3 Overweight; F17.200 Nicotine dependence, unspecified, uncomplicated; Z71.6 Tobacco abuse counseling | CPT/HCPCS: 96127; 99212 ==

== ENCOUNTER 2024-08-03 09:54 | Outpatient (REF) | payer OTHER, SELFPAY ==
--- NOTE | 2024-08-03 10:00 | PFT_ITS ---
Flows: FEV1: 105 % of predicted at 2.81 L FVC: 107 % of predicted at 3.43 L FEV1/FVC: 82 % Bronchodilator response: Absent Volumes: Total lung capacity: 101 % of predicted at 4.58 L Residual volume: 105 % of predicted at 1.15 L Slow vital capacity: 99 % of predicted at 3.43 L Expiratory reserve volume: 72 % of predicted at 0.75 L Diffusion capacity: Normal Impression: No obstructive or restrictive ventilatory defect. No bronchodilator response. Normal pulmonary function test. MTDD
--- OUTSIDE RECORDS SUMMARY | 2024-08-03 10:32 | XMS_ITS | Clinical Summary ---
Author Organization [facility] [facility] Address [address] [place] [address] Care Team Providers Care Insurance Verification Clerk Name Role Phone Unavailable Primary Care Provider Unavailabl e Immunizations Name Administration Dates Next Due Influenza injectable quadrivalent preservative f ree 03/22/2023,05/08/2021 Pfizer Covid-19 Vaccine 12+ 03/04/2021, Tdap 05/10/2018,07/13/2011 Social History Tobacco Use Types Packs/Day Years Used Date Smoking Tobacco: Never Assessed Comments Unknown Sex and Gender Information Value Date Recorded Sex Assigned at Female 05/03/2022 10:29 AM EDT Legal Sex Female 10:29 AM EDT Gender Identity Female 05/03/2022 10:29 AM EDT Sexual Orientation Straight 05/03/2022 10 :29 AM EDT Plan of Treatment Health Maintenance Due Date Last Done Comments Depression Screening 1986 HIV Screening 1986 SDOH Screening 1986 Alcohol/Substance Use Screening 1998 Tobacco Screening 1998 Family Planning (PISQ) 2001 Hepatitis C Screening 2004 Hepatitis B Vaccines (1 of 3 - 19+ 3-dose series) 2005 Pap Smear 11/29/2007 Cervical Cancer Screening 2016 HPV/Cotest 2016 COVID-19 Vaccine (3 - 2023-2 5 season) 2024 03/04/2021, 02/11/2021 Influenza Vaccine (#1) 2024 , 05/08/2021 DTaP/Tdap/Td Vaccines (3 - T d or Tdap) 05/10/2028 05/10/2018, 07/13/2011 Zoster Vaccines (1 of 2) 2036 RSV Patients and Patients Aged 60 years or older (1 - 1-dose 75+ series) 2061 HIB Vaccines Aged Out No longer eligi ble based on patient's age to complete this topic HPV Vaccines Aged Out No longer eligi ble based on patient's age to complete this topic Hepatitis A Vaccines Aged Out No long er eligible based on patient's age to complete this topic IPV Vaccines Aged Out No longer eligi ble based on patient's age to complete this topic Meningococcal Vaccine Aged Out No raúl matthew eligible based on patient's age to complete this topic Pneumococcal Vaccine: Pediatrics (0 to 5 Years) and At-Risk Patients (6 to 49) Years) Aged Out No longer eligible b ased on patient's age to complete this topic RSV under 20 months Aged Out No longe r eligible based on patient's age to complete this topic Rotavirus Vaccines Aged Out No longer eligible based on patient's age to complete this topic Insurance [facility]
== END 2024-08-03 09:55 | disposition home or self-care (01) ==
LOC: HO.RESP 09:54
PROVIDERS: PCP Internal Medicine; Visit Provider Internal Medicine
DX: R06.00 Dyspnea, unspecified (principal); Z87.891 Personal history of nicotine dependence
CPT/HCPCS: 94010; 94640; 94727; 94729

== ENCOUNTER → 2024-08-03 10:00 | Outpatient (BNV) | payer OTHER, SELFPAY | PROVIDERS: PCP Internal Medicine; Visit Provider Internal Medicine Pulmonary Disease | DX: R06.00 Dyspnea, unspecified (principal) | CPT/HCPCS: 94060; 94727; 94729 ==

== ENCOUNTER 2024-11-13 15:06 | Outpatient (AMB) | payer OTHER, SELFPAY ==
--- NOTE | 2024-11-13 15:10 | MHC.PC.OV ---
Vital Signs 11/13/24 15:12 Height 5 ft Weight 161 lb 6 oz BMI 31.5 BP 132/68 Blood Pressure Location Lt brachial Position Sitting Pulse 88 Pulse Source Pulse Oximeter Temp 97.5 F Temp Source Temporal Artery Scan Pulse Oximetry (%) 98 Oxygen Delivery Method Room Air Intake Visit Reasons: Cyst on LT Breast Intake Note: Patient is here to follow up on Cyst on left breast. Studio Grip Required: No Program Admin: Not Required per policy Accompanied by: Self / Same As Patient Allergies No Known Allergies [No Known Allergies*] Allergy (Verified 11/13/24 15:17) Medication List - Last Reconciled 11/13/24 by Jyothi Nj PA-C acetaminophen (Tylenol Extra Strength) 1,000 mg (2 x 500 mg) PO Q6H PRN clonazepam 1 mg PO DAILY PRN 30 days gabapentin 400 mg PO TID 30 days ibuprofen 800 mg PO Q8H PRN lidocaine 5% 1 patch topical DAILY naloxone 4 mg/actuation (Narcan) 4 mg intranasal Q2M PRN ondansetron HCl 4 mg PO Q8H PRN tramadol 50 mg PO TID PRN 30 days Ventolin HFA 90 mcg/actuation (albuterol sulfate) 2 puffs inhalation Q6H PRN 30 days NS Tobacco use date assessed: 11/13/24 Dental Screening Dental Screen Date: 11/13/24 Did you have a dental visit in the last 12 months?: No Did you have a dental problem in the last 6 months where you did not have access to dental care?: No Was dental information given to patient?: Patient declined HPI Cyst on LT Breast HPI Details 38-year-old female with past medical history of anxiety, palpitations last seen 06/[address] Alvarez coming in for acute problem. Presenting with a breast mass. She found a lump in the left breast several months ago, which has grown slightly in size and is tender with pressure or irritation from certain bras. There are no observable skin changes, and there are no reports of discharge from the nipple. A similar issue was felt many years ago, which resolved spontaneously. She reports fluctuations in weight, night sweats, and a recent decrease in appetite. No prior mammograms; imaging of the breast is planned for further investigation. [facility] Medical History Overweight (BMI 25.0-29.9) Spondylosis of lumbosacral spine with radiculopathy Obesity (BMI 30-39.9) Smoker Palpitations Anxiety Gastritis Surgical History H/O tooth extraction Family History Father Medical history unknown Mother Hypertension Family/Other Hypertension Diabetes Social History Housing: Apartment Alcohol intake: never Patient Tobacco Use Status: Current everyday Tobacco user Tobacco use type: Cigarette Cigarette Packs Per Day: 0.5 Cigarettes Per Day: 6 e-Cigarette/Vaping Use: Never Used Second Hand Smoke Exposure: Yes Substance Use Type: Marijuana service: No Current occupational status: employed Cognitive needs: No Hearing needs: No Vision needs: No Questionnaire PHQ-9 Over the last 2 weeks, how often have you been bothered by any of the following problems? 1. Little interest or pleasure in doing things: several days 2. Feeling down, depressed, or hopeless: several days 3. Trouble falling or staying asleep, or sleeping too much: nearly every day 4. Feeling tired or having little energy: more than half the days 5. Poor appetite or overeating: more than half the days 6. Feeling bad about yourself - or that you are a failure or have let yourself or your family down: not at all 7. Trouble concentrating on things, such as reading the newspaper or watching television: more than half the days 8. Moving or speaking so slowly that other people could have noticed. Or the opposite - being so fidgety or restless that you have been moving around a lot more than usual: several days 9. Thoughts that you would be better off or of hurting yourself in some way: not at all Total score: 12 Depression Screening Interpretation: Positive Depression Screening Follow-up: Existing condition Depression Screening Done: Yes Source: Developed by Drs. Hilario Maldonado, Rima Louis, Ashish Silva and colleagues, with an educational sebastián from [employer]. Thrive Questionnaire Date Thrive assessed: 11/06/24 I am a: Patient What is your living situation today?: I have a steady place to live Within the past 12 months, did the food you bought not last and you didn't have the money to get more?: Sometimes True Within the past 12 months, did you worry whether your food would run out before you got money to buy more?: Often true Do you have trouble paying for medicines?: Yes Do you have trouble getting transportation to medical appointments?: No Do you have trouble paying your heating and electricity bill?: Yes Do you have trouble taking care of your child, family member or friend?: No Do you have trouble with day-to-day activities such as bathing, preparing meals, shopping, managing finances, etc.?: Yes Are you currently unemployed and looking for a job?: No Are you interested in more education?: Yes Please select the resources that you would like help with: Housing/Snf, Food, Paying for medicine, Childcare and Education Currently or been in a relationship where the following occur: I choose not to answer THRIVE Score: 3 AUDIT C Alcohol Use Questionnaire (AUDIT-C) 1. How often do you have a drink containing alcohol?: Never 2. How many drinks containing alcohol do you have on a typical day when you are drinking?: 1 or 2 3. How often do you have six or more drinks on one occasion?: Never Total Score: 0 ALICIA-7 AMB Questionnaire ALICIA-7 Date ALICIA - 7 assessed: 11/13/24 Feeling nervous, anxious, or on edge: 2 = More than half the days Not being able to stop or control worryin = Several days Worrying too much about different things: 2 = More than half the days Trouble relaxin = Nearly every day Being so restless that it is hard to sit still: 3 = Nearly every day Becoming easily annoyed or irritable: 2 = More than half the days Feeling afraid as if something awful might happen: 0 = Not at all Total ALICIA-7 score (0-4 normal; 5-9 mild; 10-14 moderate; 15-21 severe): 13 Source: Developed by Drs. Hilario Maldonado, Rima Louis, Ashish Silva and colleagues, with an educational sebastián from [employer]. Review of Systems Const Denies body aches, Denies chills, Denies fever(s), Denies headache(s), Reports night sweats and Reports poor appetite Eyes Reports no additional complaints ENT Denies dizziness and Denies headache(s) Card Denies chest pain and Denies dyspnea Resp Denies dyspnea GI Denies nausea and Denies vomiting Reports no additional complaints Musc Reports no additional complaints and Denies abnormal gait Skin/Breast Reports as per HPI Neuro Denies abnormal gait, Denies dizziness and Denies headache(s) Psych Reports no additional complaints Physical exam (Primary Care) Vital Signs: Last Vital Signs Temp 97.5 F 11/13/24 15:12 Oxygen Delivery Method Room Air 11/13/24 15:12 BMI result Body Mass Index 31.5 Tobacco/Smoking Status: Tobacco use Status Tobacco use date assessed 06/13/24 06/13/24 15:00 Patient Tobacco Use Status Current everyday Tobacco 06/13/24 15:00 Tobacco use type Cigarette 06/13/24 15:00 e-Cigarette/Vaping Use Never Used 06/13/24 15:00 Depression Screening Interpretation: Positive Depression Screening Follow-up: Existing condition Thrive Assessment: Date of Thrive Assessment Date Thrive assessed 11/06/24 11/06/24 12:14 Currently or been in a relationship where the following occur: I choose not to answer Const General: cooperative, healthy appearing, comfortable and no acute distress Orientation/consciousness: patient oriented x3 HENMT Head: Yes normocephalic Ears: hearing grossly normal bilaterally General nose exam: Normal external nose present Eyes General: appearance normal, both eyes and all related structures Conjunctivae: conjunctivae normal Neck Neck: Yes full ROM and Yes no lymphadenopathy Chest Other: patient consented to breast exam today. normal inspection and palpation of the right breast. findings in left breast as below. no overlying skin changes, redness or warmth and no nipple inversion or discharge in belia breasts. Chest/axillae images: 1. pea size mass tenderness to palpation 2. non tendermass Resp Effort & Inspection: normal respiratory effort Auscultation: clear to auscultation bilaterally, no crackles, no rales, no rhonchi and no wheezes Cardio Rate: regular rate Rhythm: regular rhythm Skin General skin exam: no rashes or lesions noted Neuro General: patient oriented x3 Gait exam (Neuro): Normal gait present Extrem General: Yes normal to inspection, Yes full ROM and No edema Psych Affect: normal affect Attitude: cooperative Insight: Good insight present (Psych) Judgement: Good judgement present (Psych) Coding Level of Care Code Est Pt Level 3 (89531) Diagnoses Breast mass, left N63.20 Breast pain, left N64.4 Assessment & Plan Assessment & Plan (1) Breast mass, left: Code(s): N63.20 - Unspecified lump in the left breast, unspecified quadrant Category: Medical Plan: Further evaluation with a mammogram and breast ultrasound will be conducted to assess the identified left breast mass, considering hormonal influence on growth and tenderness. I suspect the masses might be cysts, indicated by their characteristics, although differentiation between cysts and solid masses clinically can be difficult. Plan to follow up in 1 month at patient request but plan to discuss results once they are available. (2) Breast pain, left: Code(s): N64.4 - Mastodynia Category: Medical Plan: Plan as above Plan This note was constructed using voice recognition software. While every effort has been made to ensure accuracy and stock or delivery clerk, still areas may have been included sometimes these areas may affect the content or meeting of the given symptoms. Total time spent caring for the patient today was 20 minutes. This includes time spent before the visit reviewing the chart, time spent during the visit, and time spent after the visit and documentation. Patient was informed and verbally consented to the use of an ambient scribe for clinic note documentation during this visit. Orders: Orders MM tomosynthesis diagnostic BI Today N63.20 - Unspecified lump in the left breast, unspecified quadrant, N64.4 - Mastodynia US breast LT limited Today N63.20 - Unspecified lump in the left breast, unspecified quadrant, N64.4 - Mastodynia
[2024-11-13 15:12] VITALS: BP 132/68; PULSE 88; TEMP 36.4; O2SAT 98; BMI 31.5
--- OUTSIDE RECORDS SUMMARY | 2024-11-13 16:06 | XMS_ITS | Clinical Summary ---
Author Organization [employer] Address [address] [place] [address] [address] [place] [address] Care Team Providers Care Bench Assembler Battery Name Role Phone Unavailable Primary Care Provider [...] patient's age to complete this topic Insurance [facility]
== END 2024-11-13 15:41 | disposition home or self-care (01) ==
LOC: HO.HMCH 15:06
PROVIDERS: PCP Internal Medicine
DX: N63.20 Unspecified lump in the left breast, unspecified quadrant (principal); N64.4 Mastodynia

== ENCOUNTER → 2024-11-13 15:06 | Outpatient (BNVA) | payer OTHER, SELFPAY | PROVIDERS: PCP Internal Medicine | DX: N63.20 Unspecified lump in the left breast, unspecified quadrant (principal); N64.4 Mastodynia | CPT/HCPCS: 99212 ==

== ENCOUNTER 2024-11-21 15:15 | Outpatient (AMB) | payer OTHER, SELFPAY ==
--- OUTSIDE RECORDS SUMMARY | 2024-11-21 15:20 | XMS_ITS | Clinical Summary ---
Author Organization [employer] Address [address] [place] [address] [address] [place] [address] Care Team Providers Care Assistant Auditor Name Role Phone Unavailable Primary Care Provider Unavailabl e Immunizations Immunization Administration Dates Next Due Influenza injectable quadrivalent [...] 1986 HIV Screening 1986 SDOH Screening 1986 Disability Screening 1986 Alcohol/Substance Use Screening 1998 Tobacco Screening 1998 Family Planning (PISQ) 2001 Hepatitis C Screening 2004 Hepatitis B Vaccines (1 of 3 - 19+ 3-dose series) 2005 Pap Smear 11/29/2007 Cervical Cancer Screening 2016 HPV/Cotest 2016 COVID-19 Vaccine ( - 2023-2 5 season) 2024 03/04/2021, 02/11/2021 Influenza Vaccine (#1) 2024 3, 05/08/2021 DTaP/Tdap/Td Vaccines (3 - T d [...] patient's age to complete this topic Meningococcal B Vaccine Aged Out No l onger eligible based on patient's age to complete [...] patient's age to complete this topic [place] [address] [place] [address] [place] [id number]
--- NOTE | 2024-11-21 15:23 | A.OFFPC_ITS ---
Vital Signs 11/21/24 15:25 Height 5 ft Weight 161 lb BMI 31.4 BP 128/82 Blood Pressure Location Lt brachial Position Sitting Intake Visit Reasons: Follow up Cyst Demolition Specialist Required: No Accompanied by: Self / Same As Patient Allergies No Known Allergies [No Known Allergies*] Allergy (Verified 11/21/24 15:51) Medication List - Last Reconciled 11/21/24 by Janet Corrales MD acetaminophen (Tylenol Extra Strength) 1,000 mg (2 x 500 mg) PO Q6H PRN clonazepam 1 mg PO DAILY PRN 30 days gabapentin 400 mg PO TID 30 days ibuprofen 800 mg PO Q8H PRN lidocaine 5% 1 patch topical DAILY naloxone 4 mg/actuation (Narcan) 4 mg intranasal Q2M PRN ondansetron HCl 4 mg PO Q8H PRN tramadol 50 mg PO TID PRN 30 days Ventolin HFA 90 mcg/actuation (albuterol sulfate) 2 puffs inhalation Q6H PRN 30 days NS Tobacco use date assessed: 11/13/24 Dental Screening Dental Screen Date: 11/13/24 HPI HPI Comments History of Present Illness Details The patient is a 38-year-old female presenting with concerns regarding breast lumps pending mammogram. She noted a specific change in the left breast, with one known lump located at 2 o'clock and another smaller one adjacent to it. There is worry about the changes given her previous experience. She also has experienced a throat pain episode which resolved without further systemic symptoms and has to no cervical lymphadenopathy. I will give antibiotics and order ultrasound. Also experienced sacroiliac joint pain relieved by tramadol as needed as well as anxiety relieved by clonazepam as needed which she is aware can cause addiction and sedation. [facility] Medical History (Updated 11/21/24 @ 16:03 by Janet Corrales MD) Overweight (BMI 25.0-29.9) Spondylosis of lumbosacral spine with radiculopathy Obesity (BMI 30-39.9) Smoker Palpitations Anxiety Gastritis Surgical History H/O tooth extraction Family History Father Medical history unknown Mother Hypertension Family/Other Hypertension Diabetes Social History (Updated 11/21/24 @ 15:58 by Janet Corrales MD) Housing: Apartment Alcohol intake: never Patient Tobacco Use Status: Current everyday Tobacco user Tobacco use type: Cigarette Cigarettes Per Day: 5 e-Cigarette/Vaping Use: Never Used Second Hand Smoke Exposure: Yes Substance Use Type: Marijuana service: No Current occupational status: employed Cognitive needs: No Hearing needs: No Vision needs: No Questionnaire Thrive Questionnaire Date Thrive assessed: 11/06/24 I am a: Patient What is your living situation today?: I have a steady place to live Within the past 12 months, did the food you bought not last and you didn't have the money to get more?: Sometimes True Within the past 12 months, did you worry whether your food would run out before you got money to buy more?: Often true Do you have trouble paying for medicines?: Yes Do you have trouble getting transportation to medical appointments?: No Do you have trouble paying your heating and electricity bill?: Yes Do you have trouble taking care of your child, family member or friend?: No Do you have trouble with day-to-day activities such as bathing, preparing meals, shopping, managing finances, etc.?: Yes Are you currently unemployed and looking for a job?: No Are you interested in more education?: Yes Currently or been in a relationship where the following occur: I choose not to answer THRIVE Score: 3 ALICIA-7 AMB Questionnaire ALICIA-7 Date ALICIA - 7 assessed: 11/13/24 Source: Developed by Drs. Hilario Maldonado, Rima Louis, Ashish Silva and colleagues, with an educational sebastián from [employer]. Review of Systems Const All systems reviewed & are unremarkable except as noted in HPI and below Card Denies chest pain at rest, Denies chest pain with activity, Denies edema, Denies irregular heart rhythm, Denies claudication, Denies dyspnea, Denies dyspnea on exertion, Denies orthopnea, Denies paroxysmal nocturnal dyspnea and Denies slow heart rate Resp Denies cough, Denies dyspnea and Denies dyspnea on exertion GI Denies abdominal pain, Denies change in bowel habits, Denies excessive flatus, Denies nausea and Denies vomiting Physical exam (Primary Care) Vital Signs: Last Vital Signs BP 128/82 11/21/24 15:25 BMI result Body Mass Index 31.4 Tobacco/Smoking Status: Tobacco use Status Tobacco use date assessed 11/13/24 11/21/24 15:28 Patient Tobacco Use Status Current everyday Tobacco 11/21/24 15:58 Tobacco use type Cigarette 11/21/24 15:58 e-Cigarette/Vaping Use Never Used 11/21/24 15:58 Thrive Assessment: Date of Thrive Assessment Date Thrive assessed 11/06/24 11/21/24 15:28 Currently or been in a relationship where the following occur: I choose not to answer Neck Lymphatic: lymphadenopathy Resp Effort & Inspection: normal respiratory effort Auscultation: clear to auscultation bilaterally Cardio Jugular venous distension: no JVD Rate: regular rate Rhythm: regular rhythm Heart sounds: S1 normal heart sound present and S2 normal heart sound present Extrem General: Yes full ROM Coding Level of Care Code Est Pt Level 4 (75440) Complex EM visit Add On G2211 Diagnoses Cervical lymphadenopathy R59.0 Breast mass, left N63.20 Sacroiliac joint pain M53.3 Anxiety F41.9 Time Spent (min) 23 Assessment & Plan Assessment & Plan (1) Cervical lymphadenopathy: Code(s): R59.0 - Localized enlarged lymph nodes Category: Medical (2) Breast mass, left: Code(s): N63.20 - Unspecified lump in the left breast, unspecified quadrant Category: Medical (3) Sacroiliac joint pain: Code(s): M53.3 - Sacrococcygeal disorders, not elsewhere classified Category: Medical (4) Anxiety: Code(s): F41.9 - Anxiety disorder, unspecified Category: Medical Plan In response to the patient's development of new breast lumps, I propose a sonogram to delineate these structures further. An antibiotic is necessary, considering her previous infection and successful drainage, aiming to mitigate potential infectious contributions to her condition. The effectiveness and necessity of her pain medication regimen will be reassessed to optimize symptom control. We will focus on monitoring symptom progression, advising vigilant follow-up. I'll continue supporting her intention to quit tobacco use, reflecting on its potential impact on her overall health. Patient was informed and verbally consented to the use of an ambient scribe for clinic note documentation during this visit. We discussed the concerns surrounding her new breast lumps, including diagnostic and therapeutic steps. The patient agreed to undergo a sonogram and understood the need for potential follow-up actions based on the results. I explained the rationale for prescribing an antibiotic, referencing the past gland-related preet behzad, to prevent further complications from this or other infections. We reviewed her current pain management plan, addressing any adjustments should symptom severity intensify. Lastly, the importance of minimizing tobacco use was reinforced, acknowledging her previous cessation efforts. Orders: Orders US soft tiss head and/or neck Today R59.0 - Localized enlarged lymph nodes Medications: New amoxicillin 500 mg PO Q8H 21 caps 0RF 7 days Refilled tramadol 50 mg PO TID PRN 90 tabs 0RF pain 30 days Patient Instructions: - Get the sonogram done as scheduled. - Take the prescribed antibiotic as directed. - Continue current pain management medications as prescribed. - Monitor any changes in breast symptoms and report any new or worsening issues immediately. - Work towards reducing tobacco use and consider cessation support programs.
[2024-11-21 15:25] VITALS: BP 128/82; BMI 31.4
== END 2024-11-21 16:03 | disposition home or self-care (01) ==
LOC: HO.HMCH 15:16
PROVIDERS: PCP Internal Medicine; Visit Provider Internal Medicine
DX: R59.0 Localized enlarged lymph nodes (principal); N63.20 Unspecified lump in the left breast, unspecified quadrant; M53.3 Sacrococcygeal disorders, not elsewhere classified; F41.9 Anxiety disorder, unspecified

== ENCOUNTER → 2024-11-21 15:15 | Outpatient (BNVA) | payer OTHER, SELFPAY | PROVIDERS: PCP Internal Medicine; Visit Provider Internal Medicine | DX: R59.0 Localized enlarged lymph nodes (principal); N63.21 Unspecified lump in the left breast, upper outer quadrant; M53.3 Sacrococcygeal disorders, not elsewhere classified; F41.9 Anxiety disorder, unspecified | CPT/HCPCS: 99212 ==

== ENCOUNTER 2024-12-10 09:14 | Outpatient (REF) | payer OTHER, SELFPAY ==
--- NOTE | ~2024-12-10 | MM_ITS ---
EXAMINATION: MM DIAGNOSTIC DIGITAL BREAST TOMOSYNTHESIS, BILATERAL Limited left breast ultrasound. CLINICAL INFORMATION: Palpable left breast lumps lower central breast. Family history of breast cancer COMPARISON: Mammography: Baseline mammography. TECHNIQUE: Digital breast mammography with tomosynthesis is performed in both the craniocaudal and mediolateral oblique views along with computer-aided detection (CAD). FINDINGS: The breasts are heterogeneously dense, which may obscure small masses (ACR BI-RADS breast composition Category c). Right: There are no significant masses, abnormal calcifications, or other abnormalities. Left: BB palpable markers in the lower central breast without underlying abnormality. No suspicious calcifications masses or other abnormal findings. Targeted color Doppler ultrasound scanning in the area of the left breast palpable lumps upper outer quadrant and lower outer quadrant from 40 8:00 demonstrates a solid irregular mass at 2:00 8 cm from nipple measuring 11 x 11 x 9 mm. Otherwise there is normal fibronodular breast tissue. Results are provided to the patient at time of visit by the technologist. MM/MM tomosynthesis diagnostic BI IMPRESSION: Right: Negative. Left: Solid irregular mass at 2:00 on ultrasound. Recommend bulging with ultrasound-guided core needle biopsy at this time. The findings and recommendations were discussed with the patient the procedure will be scheduled. Patient has a strong family history of breast cancer. Recommend yearly breast MRI screening surveillance for further evaluation. Breast MRI would need to be ordered by the patient's providing clinician. ASSESSMENT: BI-RADS BI-RADS 4 - Suspicious finding RECOMMENDATION: Biopsy recommended This patient's information was entered into a reminder system with a target due date for their next mammogram. Electronically signed by: Patsy Joshi DO 12/10/2024 02:39 PM EDT
--- OUTSIDE RECORDS SUMMARY | 2024-12-10 09:38 | XMS_ITS | Clinical Summary ---
Author Organization [employer] Address [address] [place] [address] [address] [place] [address] Care Team Providers Care Cost Engineer Name Role Phone Unavailable Primary Care Provider [...] 5 season) 2024 03/04/2021, 02/11/2021 Influenza Vaccine (Season Ended) 2025 03/22/2023, 05/08/2021 DTaP/Tdap/Td Vaccines (3 - T d [...] patient's age to complete this topic [place] [address] [place] [id number]
== END 2024-12-10 09:15 | disposition home or self-care (01) ==
LOC: HO.MAMMO 09:14
PROVIDERS: PCP Internal Medicine
DX: N64.4 Mastodynia (principal); N63.25 Unspecified lump in the left breast, overlapping quadrants
CPT/HCPCS: 76642; 77062; 77066

== ENCOUNTER → 2024-12-10 09:30 | Outpatient (BNV) | payer OTHER, SELFPAY | PROVIDERS: PCP Internal Medicine; Visit Provider Internal Medicine | DX: N63.21 Unspecified lump in the left breast, upper outer quadrant (principal) | CPT/HCPCS: 76642; 77062; 77066 ==

== ENCOUNTER 2024-12-11 15:31 | Outpatient (AMB) | payer OTHER, SELFPAY ==
--- NOTE | 2024-12-11 15:34 | MHC.PC.OV ---
Vital Signs 12/11/24 15:36 Height 5 ft Weight 166 lb 8 oz BMI 32.5 BP 120/80 Blood Pressure Location Lt brachial Position Sitting Pulse 70 Pulse Source Pulse Oximeter Temp 97.3 F Temp Source Temporal Artery Scan Pulse Oximetry (%) 100 Oxygen Delivery Method Room Air Intake Visit Reasons: 1m/ Cyst on LT Breast Intake Note: Patient is here to follow up on Cyst on left breast. License And Permit Specialist Required: No Superintendent Operating: Not Required per policy Accompanied by: Self / Same As Patient Allergies No Known Allergies [No Known Allergies*] Allergy (Verified 12/11/24 15:51) Medication List - Last Reconciled 12/11/24 by Jyothi Nj PA-C acetaminophen (Tylenol Extra Strength) 1,000 mg (2 x 500 mg) PO Q6H PRN clonazepam 1 mg PO DAILY PRN 30 days gabapentin 400 mg PO TID 30 days ibuprofen 800 mg PO Q8H PRN lidocaine 5% 1 patch topical DAILY naloxone 4 mg/actuation (Narcan) 4 mg intranasal Q2M PRN ondansetron HCl 4 mg PO Q8H PRN tramadol 50 mg PO TID PRN 30 days Ventolin HFA 90 mcg/actuation (albuterol sulfate) 2 puffs inhalation Q6H PRN 30 days NS Tobacco use date assessed: 12/11/24 Dental Screening Dental Screen Date: 11/13/24 HPI 1m/ Cyst on LT Breast HPI Details 39-year-old female with a past medical history of anxiety and palpitations last seen by Dr. Land 11/2024 coming in for follow up.? In review of the notes, patient had mammogram completed 12/10/2024 which showed an irregular mass recommending a biopsy.? Ultrasound-guided biopsy was scheduled for 12/26/2024. Presenting with concerns about a breast mass. Recent diagnostic imaging with mammogram and ultrasound revealed a breast mass, prompting a scheduled biopsy on December 26 for further evaluation. Breast pain is present, described variably as pinching, pushing, and stabbing. The onset pattern is inconsistent. Active nicotine dependence is present, with a reported smoking habit of five cigarettes per day. Gabapentin is available but yet to be attempted for localized breast pain relief; current tramadol use is not effectively managing this pain. [facility] Medical History Overweight (BMI 25.0-29.9) Spondylosis of lumbosacral spine with radiculopathy Obesity (BMI 30-39.9) Smoker Palpitations Anxiety Gastritis Surgical History H/O tooth extraction Family History Father Medical history unknown Mother Hypertension Family/Other Hypertension Diabetes Social History Housing: Apartment Alcohol intake: never Patient Tobacco Use Status: Current everyday Tobacco user Tobacco use type: Cigarette Cigarette Packs Per Day: 0.5 Cigarettes Per Day: 5 e-Cigarette/Vaping Use: Never Used Second Hand Smoke Exposure: Yes Substance Use Type: Marijuana service: No Current occupational status: employed Cognitive needs: No Hearing needs: No Vision needs: No Questionnaire Thrive Questionnaire Date Thrive assessed: 11/06/24 I am a: Patient What is your living situation today?: I have a steady place to live Within the past 12 months, did the food you bought not last and you didn't have the money to get more?: Sometimes True Within the past 12 months, did you worry whether your food would run out before you got money to buy more?: Often true Do you have trouble paying for medicines?: Yes Do you have trouble getting transportation to medical appointments?: No Do you have trouble paying your heating and electricity bill?: Yes Do you have trouble taking care of your child, family member or friend?: No Do you have trouble with day-to-day activities such as bathing, preparing meals, shopping, managing finances, etc.?: Yes Are you currently unemployed and looking for a job?: No Are you interested in more education?: Yes Currently or been in a relationship where the following occur: I choose not to answer THRIVE Score: 3 ALICIA-7 AMB Questionnaire ALICIA-7 Date ALICIA - 7 assessed: 11/13/24 Source: Developed by Drs. Hilario Maldonado, Rima Louis, Ashish Silva and colleagues, with an educational sebastián from [employer]. Review of Systems Const Denies body aches, Denies chills, Denies fever(s), Denies headache(s) and Denies poor appetite Eyes Reports no additional complaints ENT Denies dizziness and Denies headache(s) Card Denies chest pain and Denies syncope Resp Denies cough Reports no additional complaints Musc Reports no additional complaints and Denies abnormal gait Skin/Breast Reports system reviewed and no additional complaints, except as documented Neuro Denies abnormal gait, Denies dizziness, Denies syncope and Denies headache(s) Psych Reports no additional complaints Physical exam (Primary Care) Vital Signs: Last Vital Signs Temp 97.3 F 12/11/24 15:36 Pulse 70 12/11/24 15:36 BP 120/80 12/11/24 15:36 Pulse Ox 100 12/11/24 15:36 Oxygen Delivery Method Room Air 12/11/24 15:36 BMI result Body Mass Index 32.5 Tobacco/Smoking Status: Tobacco use Status Tobacco use date assessed 12/11/24 12/11/24 15:42 Patient Tobacco Use Status Current everyday Tobacco 12/11/24 15:42 Tobacco use type Cigarette 12/11/24 15:42 e-Cigarette/Vaping Use Never Used 12/11/24 15:42 Thrive Assessment: Date of Thrive Assessment Date Thrive assessed 11/06/24 12/11/24 15:42 Currently or been in a relationship where the following occur: I choose not to answer Const General: cooperative, healthy appearing, comfortable and no acute distress Orientation/consciousness: patient oriented x3 HENMT Head: Yes normocephalic Ears: hearing grossly normal bilaterally General nose exam: Normal external nose present Eyes General: appearance normal, both eyes and all related structures Conjunctivae: conjunctivae normal Neck Neck: Yes full ROM and Yes no lymphadenopathy Resp Effort & Inspection: normal respiratory effort Auscultation: clear to auscultation bilaterally, no crackles, no rales, no rhonchi and no wheezes Cardio Rate: regular rate Rhythm: regular rhythm Skin General skin exam: no rashes or lesions noted Neuro General: patient oriented x3 Gait exam (Neuro): Normal gait present Extrem General: Yes normal to inspection, Yes full ROM and No edema Psych Affect: normal affect Attitude: cooperative Insight: Good insight present (Psych) Judgement: Good judgement present (Psych) Coding Level of Care Code Est Pt Level 3 (79142) Diagnoses Breast pain, left N64.4 Breast mass, left N63.20 Cervical lymphadenopathy R59.0 Tobacco use disorder F17.200 Assessment & Plan Assessment & Plan (1) Breast pain, left: Code(s): N64.4 - Mastodynia Category: Medical Plan: The patient will undergo a biopsy for the breast mass on December 26. We will continue with gabapentin for breast pain management, and clonazepam for anxiety, which is presently well-controlled. Follow-up is crucial to monitor the course of current treatment and address any changes or symptoms progression following the biopsy result. (2) Breast mass, left: Code(s): N63.20 - Unspecified lump in the left breast, unspecified quadrant Category: Medical Plan: See above (3) Cervical lymphadenopathy: Code(s): R59.0 - Localized enlarged lymph nodes Category: Medical Plan: Ultrasound was ordered by Dr. Land at last visit. (4) Tobacco use disorder: Code(s): F17.200 - Nicotine dependence, unspecified, uncomplicated Category: Medical Plan: Smoking cigarettes and the use of tobacco can be harmful. We discussed the importance of stopping and options to aid in smoking cessation. I suggested nicotine patches to aid in smoking cessation efforts, with further support as needed Plan This note was constructed using voice recognition software. While every effort has been made to ensure accuracy and store deli manager, still areas may have been included sometimes these areas may affect the content or meeting of the given symptoms. Total time spent caring for the patient today was 20 minutes. This includes time spent before the visit reviewing the chart, time spent during the visit, and time spent after the visit and documentation. Patient was informed and verbally consented to the use of an ambient scribe for clinic note documentation during this visit. Medications: Discontinued ibuprofen Discontinued Reason: Patient no longer taking 800 mg PO Q8H PRN 20 tabs 0RF pain K08.409 - Partial loss of teeth, unspecified cause, unspecified class
[2024-12-11 15:36] VITALS: BP 120/80; PULSE 70; TEMP 36.3; O2SAT 100; BMI 32.5
--- OUTSIDE RECORDS SUMMARY | 2024-12-11 18:37 | XMS_ITS | Clinical Summary ---
Author Organization [employer] Address [address] [place] [address] [address] [place] [address] Care Team Providers Care Second Ride Fare Collector Name Role Phone Unavailable Primary Care Provider [...] patient's age to complete this topic [place] [address] [place] [address] [place] [id number]
== END 2024-12-11 16:01 | disposition home or self-care (01) ==
LOC: HO.HMCH 15:32
PROVIDERS: PCP Internal Medicine
DX: N64.4 Mastodynia (principal); N63.20 Unspecified lump in the left breast, unspecified quadrant; R59.0 Localized enlarged lymph nodes; F17.200 Nicotine dependence, unspecified, uncomplicated

== ENCOUNTER → 2024-12-11 15:31 | Outpatient (BNVA) | payer OTHER, SELFPAY | PROVIDERS: PCP Internal Medicine | DX: N64.4 Mastodynia (principal); F41.9 Anxiety disorder, unspecified; F17.210 Nicotine dependence, cigarettes, uncomplicated; N63.20 Unspecified lump in the left breast, unspecified quadrant; R59.0 Localized enlarged lymph nodes; K08.409 Partial loss of teeth, unspecified cause, unspecified class | CPT/HCPCS: 99212 ==

== ENCOUNTER 2024-12-26 08:50 | Outpatient (REF) | payer OTHER, SELFPAY ==
--- NOTE | ~2024-12-26 | MM_ITS ---
PROCEDURE: ULTRASOUND-GUIDED LEFT BREAST BIOPSY CLINICAL INFORMATION: Solid irregular mass in the left breast at 2:00 8 cm from the nipple on ultrasound. Patient has a strong family history of breast cancer. COMPARISON: Priors on PACS. TECHNIQUE: The details of the procedure, as well as the risks, benefits, and alternatives to the procedure were explained to the patient in detail and all of her questions were answered, after which, written informed consent was obtained. PROCEDURE: Prior to the procedure, sonography revealed a solid irregular mass at 2:00 8 cm from the nipple. A time-out was performed, the lesion intended for biopsy was targeted and the skin of the left breast was then prepped and draped in the usual sterile fashion. Using sonographic guidance, sterile technique, and 1% lidocaine without epinephrine for local anesthesia, a total of 5 cores were obtained through the targeted area with a 14-gauge biopsy device. At the completion of tissue sampling, a single butterfly metallic clip was deposited at the biopsy site. An appropriate sample was obtained. The postprocedure 2-view direct digital mammogram reveals satisfactory positioning of the biopsy clip. The patient tolerated the procedure well and, after assuring adequate hemostasis, was discharged in good condition after reviewing postbiopsy breast care instructions. Final pathology results are pending. MM/MM tomosynthesis diagnostic LT IMPRESSION: 1. Uncomplicated sonographically-guided core biopsy of the left breast. The 2-view direct digital postprocedure mammogram reveals satisfactory positioning of the biopsy clip. 2. Final pathology results are pending. A separate report with final recommendations will be issued once these results are made available. Electronically signed by: Patsy Joshi DO 12/26/2024 10:36 AM EDT
--- OUTSIDE RECORDS SUMMARY | 2024-12-26 09:21 | XMS_ITS | Clinical Summary ---
Author Organization [employer] Address [address] [place] [address] [address] [place] [address] Care Team Providers Care Sustainability Coordinator Name Role Phone Unavailable Primary Care Provider [...] Years) and At-Risk Patients (6 to 49) Years Aged Out No longer eligible b ased on patient's age to complete this topic RSV under 20 months Aged Out No longe r eligible based on patient's age to complete this topic Rotavirus Vaccines Aged Out No longer eligible based on patient's age to complete this topic Insurance [employer]
[2024-12-26] MEDS: Sodium Bicarbonate 8.4% 50 MEQ/50 ML VIAL SUBCUT (09:46)
[2024-12-26] MEDS: Lidocaine HCl 1 % 20 ML VIAL 9 ML SUBCUT (09:47)
== END 2024-12-26 08:51 | disposition home or self-care (01) ==
LOC: HO.MAMMO 08:50
PROVIDERS: Absent Provider Internal Medicine; PCP Internal Medicine; Visit Provider Surgery
DX: D24.2 Benign neoplasm of left breast (principal)
CPT/HCPCS: 19083; 77061; 77065; 88305; A4648; J2003

== ENCOUNTER → 2024-12-26 09:00 | Outpatient (BNV) | payer OTHER, SELFPAY | PROVIDERS: Absent Provider Internal Medicine; PCP Internal Medicine; Visit Provider Internal Medicine | DX: N63.21 Unspecified lump in the left breast, upper outer quadrant (principal) | CPT/HCPCS: 19083; 77065 ==

== ENCOUNTER 2025-01-02 15:03 | Outpatient (REF) | payer OTHER, SELFPAY ==
--- NOTE | ~2025-01-02 | US_ITS ---
CLINICAL HISTORY: R59.0 - Localized enlarged lymph nodes --- Additional Notes or Special Instructions: nontender lymphadenopathy submandibular and tender lymphadenopathy in right US of the neck Comparison: None provided Findings: There are bilateral prominent cervical chain lymph nodes, largest on the left measuring 2.1 x 1.8 x 0.6 cm and on the right 2.3 x 2.2 x 0.7 cm. Correlate clinically for possible benign reactive adenopathy. Short-term clinical follow-up with repeat imaging, if appropriate, recommended. There are no suspicious cystic or solid masses in the areas scanned. Impression: 1. Nonspecific bilateral cervical chain adenopathy. Clinical follow-up recommended This document has been electronically signed by: Wicho Aviles MD on 01/03/2025 10:14:47
--- OUTSIDE RECORDS SUMMARY | 2025-01-02 15:25 | XMS_ITS | Clinical Summary ---
Author Organization [employer] Address [address] [place] [address] [address] [place] [address] Care Team Providers Care Parts Cataloger Name Role Phone Unavailable Primary Care Provider [...]
== END 2025-01-02 15:04 | disposition home or self-care (01) ==
LOC: HO.US 15:03
PROVIDERS: PCP Internal Medicine; Visit Provider Internal Medicine
DX: R59.0 Localized enlarged lymph nodes (principal)
CPT/HCPCS: 76536

== ENCOUNTER → 2025-01-02 15:05 | Outpatient (BNV) | payer OTHER, SELFPAY | PROVIDERS: PCP Internal Medicine; Visit Provider Specialist | DX: R59.0 Localized enlarged lymph nodes (principal) | CPT/HCPCS: 76536 ==

== ENCOUNTER 2025-01-30 15:12 | Outpatient (AMB) | payer OTHER, SELFPAY ==
[2025-01-30 15:18] VITALS: BP 110/80; PULSE 92; O2SAT 97; BMI 32.6
--- NOTE | 2025-01-30 15:18 | MHC.PC.OV ---
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 Accompanied by: Self / Same As Patient Allergies No Known Allergies (No Known Allergies*) Allergy (Verified 01/30/25 15:39) Medication List - Last Reconciled 01/30/25 by Iftikhar Alvarez MD acetaminophen (Tylenol Extra Strength) 1,000 mg (2 x 500 mg) PO Q6H PRN gabapentin 400 mg PO BID lidocaine 5% 1 patch topical DAILY naloxone 4 mg/actuation (Narcan) 4 mg intranasal Q2M PRN nicotine 1 patch transdermal DAILY ondansetron HCl 4 mg PO Q8H PRN tramadol 50 mg PO TID PRN 30 days Ventolin HFA 90 mcg/actuation (albuterol sulfate) 2 puffs inhalation Q6H PRN 30 days NS Tobacco use date assessed: 01/30/25 Dental Screening Dental Screen Date: 01/30/25 Did you have a dental visit in the last 12 months?: No Did you have a dental problem in the last 6 months where you did not have access to dental care?: No Was dental information given to patient?: No HPI Med. Review HPI Details Patient comes in today for follow-up visit and to go over her medications States that she has not been able to get her clonazepam Rx refilled for a while now is wondering why this is being denied States that she has been taking her clonazepam daily at bedtime for a few years now and she finds that it helps her sleep better at night - notes that she takes it mostly because she has too much energy and anxiety Have advised patient that the main reason her insurance company is not approving her clonazepam refill is because she is also taking tramadol and nowadays, they generally do not want to see people on a combination of both and opioid Rx and a benzodiazepine Rx I have advised her that she is at a point where she has to decide which is more important for her to address - her pain or her anxiety Have advised her that if she is taking her clonazepam mostly to help her sleep better at night, then she is also not taking it for the right indication and it is more reason for them not to approve her prescription Adds that she has been feeling fatigued lately and has noticed some nodules on the sides of her neck for the past few days She denies any fever or sore throat Denies any headaches or dizziness Denies any chest pains, no increased shortness of breath No nausea/vomiting, no abdominal pain No change in bowel habits noted [facility] Medical History Overweight (BMI 25.0-29.9) Spondylosis of lumbosacral spine with radiculopathy Obesity (BMI 30-39.9) Smoker Palpitations Anxiety Gastritis Surgical History H/O tooth extraction Family History Father Medical history unknown Mother Hypertension Family/Other Hypertension Diabetes Social History Housing: Apartment Alcohol intake: never Patient Tobacco Use Status: Current everyday Tobacco user Tobacco use type: Cigarette Cigarette Packs Per Day: 0.5 Cigarettes Per Day: 5 e-Cigarette/Vaping Use: Never Used Second Hand Smoke Exposure: Yes Substance Use Type: Marijuana service: No Current occupational status: employed Cognitive needs: No Hearing needs: No Vision needs: No Questionnaire PHQ-9 Over the last 2 weeks, how often have you been bothered by any of the following problems? 1. Little interest or pleasure in doing things: several days 2. Feeling down, depressed, or hopeless: several days 3. Trouble falling or staying asleep, or sleeping too much: nearly every day 4. Feeling tired or having little energy: more than half the days 5. Poor appetite or overeating: more than half the days 6. Feeling bad about yourself - or that you are a failure or have let yourself or your family down: not at all 7. Trouble concentrating on things, such as reading the newspaper or watching television: more than half the days 8. Moving or speaking so slowly that other people could have noticed. Or the opposite - being so fidgety or restless that you have been moving around a lot more than usual: several days 9. Thoughts that you would be better off or of hurting yourself in some way: not at all Total score: 12 Depression Screening Interpretation: Positive Depression Screening Follow-up: Existing condition and In treatment Depression Screening Done: Yes 80050 - PHQ-9 Billing: Yes Source: Developed by Drs. Hilario Maldonado, Rima Louis, Ashish Silva and colleagues, with an educational sebastián from [employer]. Thrive Questionnaire Date Thrive assessed: 01/30/25 I am a: Patient What is your living situation today?: I have a steady place to live Within the past 12 months, did the food you bought not last and you didn't have the money to get more?: Sometimes True Within the past 12 months, did you worry whether your food would run out before you got money to buy more?: Often true Do you have trouble paying for medicines?: Yes Do you have trouble getting transportation to medical appointments?: No Do you have trouble paying your heating and electricity bill?: Yes Do you have trouble taking care of your child, family member or friend?: No Do you have trouble with day-to-day activities such as bathing, preparing meals, shopping, managing finances, etc.?: Yes Are you currently unemployed and looking for a job?: No Are you interested in more education?: Yes Please select the resources that you would like help with: None Currently or been in a relationship where the following occur: I choose not to answer THRIVE Score: 3 AUDIT C Alcohol Use Questionnaire (AUDIT-C) 1. How often do you have a drink containing alcohol?: Never 3. How often do you have six or more drinks on one occasion?: Never Total Score: 0 Score Reviewed/Action Taken: Yes ALICIA-7 AMB Questionnaire ALICIA-7 Date ALICIA - 7 assessed: 01/30/25 Feeling nervous, anxious, or on edge: 0 = Not at all Not being able to stop or control worryin = Not at all Worrying too much about different things: 0 = Not at all Source: Developed by Drs. Hilario Maldonado, Rima Loius, Ashish Silva and colleagues, with an educational sebastián from [employer]. Review of Systems Const Denies chills, Reports fatigue, Denies fever(s) and Denies headache(s) ENT Details: (+) nodules on the sides of her neck - see HPI Denies dysphagia, Denies dizziness, Denies otalgia, Denies headache(s), Denies neck pain, Denies odynophagia and Denies sore throat Card Denies chest pain, Denies rapid heart rate, Denies palpitations and Reports dyspnea on exertion (at times) Resp Denies chest congestion, Denies cough, Denies hemoptysis and Reports dyspnea on exertion (at times) GI Denies abdominal pain, Denies constipation, Denies dysphagia, Denies heartburn, Denies diarrhea, Denies nausea, Denies odynophagia and Denies vomiting Denies hematuria, Denies urinary frequency, Denies dysuria, Denies urinary incontinence and Denies urinary urgency Musc Reports back pain (over the lower back - chronic; frequently radiating down both legs), Denies neck pain and Reports radiating pain into limb (into both legs) Skin/Breast Denies rash Neuro Denies dizziness, Denies headache(s) and Denies paresthesias Psych Reports anxiety and Denies depression Endo Reports fatigue and Denies palpitations Molina/Lymph Denies easy bruising Physical exam (Primary Care) Vital Signs: Last Vital Signs Pulse 92 01/30/25 15:18 BP 110/80 01/30/25 15:18 Pulse Ox 97 01/30/25 15:18 Oxygen Delivery Method Room Air 01/30/25 15:18 BMI result Body Mass Index 32.6 Tobacco/Smoking Status: Tobacco use Status Tobacco use date assessed 01/30/25 01/30/25 15:23 Patient Tobacco Use Status Current everyday Tobacco 01/30/25 15:23 Tobacco use type Cigarette 01/30/25 15:23 e-Cigarette/Vaping Use Never Used 01/30/25 15:23 PHQ-9: PHQ-9 Score PHQ-9: Total score 12 01/30/25 15:48 Depression Screening Interpretation: Positive Depression Screening Follow-up: Existing condition and In treatment Thrive Assessment: Date of Thrive Assessment Date Thrive assessed 01/30/25 01/30/25 15:23 Currently or been in a relationship where the following occur: I choose not to answer Const General: no acute distress and alert HENMT Ears: TM's normal bilaterally and EAC's normal Throat: Yes posterior oropharynx normal and Yes tonsils normal (no TP congestion) Neck Neck: Yes supple and Yes lymphadenopathy ((+) cervical, bilateral) Thyroid: Thyroid normal Resp Auscultation: clear to auscultation bilaterally, no crackles, no rales and no wheezes Cardio Rate: regular rate Rhythm: regular rhythm Heart sounds: no murmurs GI Palpation (GI): Soft to palpation and nontender Auscultation: normal bowel sounds General: Yes no CVA tenderness Back/Spine/Pelvis Back: no CVA tenderness Thoracic/Lumbar Spine: lumbar spinal tenderness Skin Rashes: no rashes Extrem General: Yes no clubbing, cyanosis or edema Right lower extremity: knee Details: tenderness; no swelling Left lower extremity: knee Details: tenderness; no swelling Coding Level of Care Code Est Pt Level 4 (23110) Diagnoses Lymphadenopathy R59.1 Spondylosis of lumbosacral spine with radiculopathy M47.27 Gastritis without bleeding, unspecified chronicity, unspecified gastritis type K29.70 Gastritis type: unspecified gastritis Chronicity: unspecified Gastritis bleeding: without bleeding Anxiety F41.9 Smoker F17.200 Overweight (BMI 25.0-29.9) E66.3 Additional Codes PHQ-9 - 47905 - PHQ-9 Billing: Yes ([id number]) Assessment & Plan Assessment & Plan (1) Lymphadenopathy: Code(s): R59.1 - Generalized enlarged lymph nodes Category: Medical Plan: Will send patient for some labs OLGA LIDIA for further evaluation We will start her empirically on cephalexin 500 mg every 6 hours x 7 days (2) Spondylosis of lumbosacral spine with radiculopathy: Code(s): M47.27 - Other spondylosis with radiculopathy, lumbosacral region Category: Medical Plan: Lumbar spine MRI done in 2021 revealed (+) right subarticular protrusion at L5-S1 causing mild compression of the traversing right S1 nerve root. There is also a left foraminal protrusion at this level that compresses the exiting left L5 nerve root. No significant abnormality seen at the remaining lumbar levels She was referred to and seen by pain management last year and was sent for PT; she declined offer for SI joint injection and was advised that they do not offer chronic opioid Rx and to discuss with her PCP to consider Belbuca as an oral option for her She was also seen by neurosurgery (Dr. Borja) last year but indicated to them that she is not interested in any surgical intervention of injection Tx at the time Patient states that her low back pain has been fairly controlled over the past couple of years and she is contented with just continuing on her current Rx for now, including Gabapentin 400 mg TID, Lidocaine 5% patches QD PRN and Tramadol 50 mg TID PRN Reinforced activity and weight-lifting restrictions (3) Gastritis: Code(s): K29.70 - Gastritis, unspecified, without bleeding Category: Medical Qualifiers: Gastritis type: unspecified gastritis Chronicity: unspecified Gastritis bleeding: without bleeding Qualified Code(s): K29.70 - Gastritis, unspecified, without bleeding Plan: Reinforced dietary restrictions She has not needed to take any PPIs in a while now as she has not had any flare up of her GI symptoms (4) Anxiety: Code(s): F41.9 - Anxiety disorder, unspecified Category: Medical Plan: Patient states that she was doing well on Clonazepam from 1 mg to 1.5 mg QD PRN for years and is still upset that she is not able to get her Rx refilled any longer as her insurance is denying to cover her Rx now, even with a prior authorization request from the office, which was denied Have advised patient that currently, insurance companies no longer are willing to cover simultaneous prescriptions of opioids and benzodiazepines and have advised patient that at this time, she will have to choose between continuing on her opioids or benzodiazepine Have advised her that in place of her benzodiazepine, there are other more appropriate medications for maintenance treatment of her anxiety that she can start taking and this is what she should consider rather than just continuing on her clonazepam on an as-needed basis for anxiety She is now agreeable to starting on a maintenance medication for her anxiety - will start her on Citalopram 10 mg QD Follow up with psychiatry as scheduled (5) Smoker: Code(s): F17.200 - Nicotine dependence, unspecified, uncomplicated Category: Social Hx Plan: Patient is counseled again on smoking cessation States that she could not tolerate the Varenicline Rx as it was making her feel very tired and sleepy whenever she took them Have advised her to just try quitting cold turkey , which she states she is currently still working on States that she is currently still experiencing some exertional dyspnea and would like to have this further evaluated Will send her for PFTs for further evaluation (6) Overweight (BMI 25.0-29.9): Code(s): E66.3 - Overweight Category: Medical Plan: Reinforced diet/exercise as tolerated/lose weight Plan To return as scheduled in a couple of weeks for her annual physical examination Orders: Orders Comprehensive Met. Panel 01/30/25 R59.1 - Generalized enlarged lymph nodes Monotest 01/30/25 R59.1 - Generalized enlarged lymph nodes TSH reflex Free T4 01/30/25 E78.00 - Pure hypercholesterolemia, unspecified, R59.1 - Generalized enlarged lymph nodes Complete Blood Count Auto Diff 01/30/25 D64.9 - Anemia, unspecified, R59.1 - Generalized enlarged lymph nodes Erythrocyte Sedimentation Rate 01/30/25 R59.1 - Generalized enlarged lymph nodes Medications: New cephalexin 500 mg PO Q6H 28 caps 0RF 7 days citalopram 10 mg PO DAILY 30 tabs 2RF 30 days
--- OUTSIDE RECORDS SUMMARY | 2025-01-30 15:56 | XMS_ITS | Clinical Summary ---
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 Name Role Phone Unavailable Primary Care Provider [...] Tobacco Screening 1998 Family Planning (PISQ) 2001 HPV Vaccines (1 - 3-dose series) 2001 Hepatitis C Screening 2004 Hepatitis B Vaccines (1 of 3 - 19+ 3-dose series) 2005 Pap Smear 11/29/2007 Cervical Cancer Screening 2016 HPV/Cotest 2016 COVID-19 Vaccine (3 - 2023-2 5 season) 2024 03/04/2021, 02/11/2021 Influenza Vaccine (#1) 2025 3, 05/08/2021 DTaP/Tdap/Td Vaccines (3 - T [...] age to complete this topic Insurance ACO Member Subscriber Plan / Payer (Ef fective 2023-Present) Name:Aziza Anderson Relation to Subscriber:Self Name:Aziza Anderson Payer ID:Not on file Group ID:[id number] Type:Not on file Address: [facility] [id number] [place] [id number] [address] [place] [address]
== END 2025-01-30 15:48 | disposition home or self-care (01) ==
LOC: HO.HMCH 15:13
PROVIDERS: PCP Internal Medicine; Visit Provider Internal Medicine
DX: R59.1 Generalized enlarged lymph nodes (principal); M47.27 Other spondylosis with radiculopathy, lumbosacral region; K29.70 Gastritis, unspecified, without bleeding; F41.9 Anxiety disorder, unspecified; F17.200 Nicotine dependence, unspecified, uncomplicated; E66.3 Overweight

== ENCOUNTER → 2025-01-30 15:12 | Outpatient (BNVA) | payer OTHER, SELFPAY | PROVIDERS: PCP Internal Medicine; Visit Provider Internal Medicine | DX: M47.27 Other spondylosis with radiculopathy, lumbosacral region (principal); R59.1 Generalized enlarged lymph nodes; K29.70 Gastritis, unspecified, without bleeding; F41.9 Anxiety disorder, unspecified; F17.210 Nicotine dependence, cigarettes, uncomplicated; E66.3 Overweight; Z68.32 Body mass index [BMI] 32.0-32.9, adult; Z51.81 Encounter for therapeutic drug level monitoring; Z79.899 Other long term (current) drug therapy | CPT/HCPCS: 96127; 99212 ==

== ENCOUNTER 2025-03-28 11:32 | Outpatient (REF) | payer OTHER, SELFPAY ==
[2025-03-28 12:26] LABS: Hematocrit 37.3 % (37.0-47.0); Hemoglobin 12.8 g/dl (12.0-16.0); Mean Corpuscular HGB Conc 34.3 g/dl (31.0-35.0); NRBC Abs Auto 0.000 X10*3/uL (0.0-0.012); NRBC Pct Auto 0.0 /100WBC (0.0-0.2); SCAN SMEAR FLAG 1
[2025-03-28 12:28] LABS: Imm Gran Abs Auto 0.02 X10*3/uL (0.00-0.03); Imm Gran Pct Auto 0.3 % (0.0-0.4); Lymphocytes Absolute Auto 2.2 X10*3/uL (1.2-4.9); MANUAL DIFF FLAG NO; Mean Corpuscular Hemoglobin 29.9 pg (27.0-33.0); Mean Corpuscular Volume 87.1 fL (80.0-98.0); PLT ABN DIST 1; Platelet Count 182 X10*3/uL (160-400); Red Blood Count 4.28 X10*6/uL (4.20-5.50); White Blood Count 6.6 X10*3/uL (4.8-10.8)
[2025-03-28 12:56] LABS: Alanine Aminotransferase 18 U/L (0-31); Albumin Level 4.3 g/dL (3.5-5.0); Alkaline Phosphatase 54 U/L (39-117); Anion Gap 10 (12-20); Aspartate Amino Transferase 19 U/L (5-31); Blood Urea Nitrogen 7 mg/dL (9-16); Calcium 8.5 mg/dL (8.4-10.2); Carbon Dioxide 25 mmol/L (22-29); Chloride 108 mmol/L (96-108); Estimated Glomerular Filt Rate > 60; Potassium 4.2 mmol/L (3.3-5.1); Sodium 139 mmol/L (135-145); Total Protein 6.9 g/dL (6.5-8.0)
--- OUTSIDE RECORDS SUMMARY | 2025-03-28 16:25 | XMS_ITS | Clinical Summary ---
Author Organization [employer] Address [address] [place] [address] [address] [place] [address] Care Team Providers Care Metaphysician Name Role Phone Unavailable Primary Care Provider [...] 2016 HPV/Cotest 2016 COVID-19 Vaccine ( - 2024-2 6 season) 2025 03/04/2021, 02/11/2021 Influenza Vaccine (#1) 2025 3, [...] patient's age to complete this topic Insurance ([facility]) [address] [place] [address]
== END 2025-03-28 11:33 | disposition home or self-care (01) ==
LOC: HO.LAB 11:32
PROVIDERS: PCP Internal Medicine; Visit Provider Internal Medicine
DX: Z01.84 Encounter for antibody response examination (principal); R59.1 Generalized enlarged lymph nodes; E78.00 Pure hypercholesterolemia, unspecified; D64.9 Anemia, unspecified
CPT/HCPCS: 36415; 80053; 84443; 85025; 85652; 86308

== ENCOUNTER 2025-04-01 09:24 | Outpatient (REF) | payer OTHER, SELFPAY ==
--- NOTE | ~2025-04-01 | XR_ITS ---
EXAMINATION: XR HIP, LEFT CLINICAL INFORMATION: M25.552 - Pain in left hip COMPARISON: None available. TECHNIQUE: Two views of the left hip. FINDINGS: T-shaped IUD projects left of midline in the pelvis. The hip joint space is congruent. There is no joint space narrowing. XR/XR hip LT min 2V IMPRESSION: Unremarkable left hip. IUD is located in the pelvis, projecting left of midline. Electronically signed by: Chance Lindquist MD 04/01/2025 11:07 AM EDT
== END 2025-04-01 09:25 | disposition home or self-care (01) ==
LOC: HO.XRAY 09:24
PROVIDERS: PCP Internal Medicine; Visit Provider Internal Medicine
DX: Z00.00 Encounter for general adult medical examination without abnormal findings (principal); Z12.4 Encounter for screening for malignant neoplasm of cervix; M25.552 Pain in left hip; M47.27 Other spondylosis with radiculopathy, lumbosacral region; K29.70 Gastritis, unspecified, without bleeding; F41.9 Anxiety disorder, unspecified; E66.9 Obesity, unspecified; F17.210 Nicotine dependence, cigarettes, uncomplicated; Z68.34 Body mass index [BMI] 34.0-34.9, adult; Z79.899 Other long term (current) drug therapy
CPT/HCPCS: 73502; 99395

== ENCOUNTER → 2025-04-01 10:44 | Outpatient (BNV) | payer OTHER, SELFPAY | PROVIDERS: PCP Internal Medicine; Visit Provider Radiology Diagnostic Radiology | DX: M25.552 Pain in left hip (principal) | CPT/HCPCS: 73502 ==

== ENCOUNTER 2025-06-03 06:45 | Emergency (ER) | payer OTHER, SELFPAY ==
[2025-06-03 06:48] VITALS: BP 139/83; PULSE 90; RESP 18; TEMP 36.6; O2SAT 99; BMI 31.2
--- OUTSIDE RECORDS SUMMARY | 2025-06-03 07:07 | XMS_ITS | Clinical Summary ---
Author Organization [employer] Address [address] [place] [address] [address] [place] [address] Care Team Providers Care Derrick Man Name Role Phone Unavailable Primary Care Provider [...] patient's age to complete this topic Insurance ([facility]) [address] [place] [address]
--- NOTE | 2025-06-03 07:19 | ED_ITS ---
HPI - Abdominal Pain General Chief Complaint: Nausea/Vomiting/Diarrhea Stated Complaint: Nausea Vomiting Diarrhea Time Seen by Provider: 06/03/25 07:02 Source: patient Mode of arrival: ambulatory Limitations: no limitations History of Present Illness ED Provider: Dr. Jose Rice HPI narrative: 39-year-old female with a history of gastritis, anxiety who presents emergency department for evaluation of abdominal pain. She states that over the last month she has not been able to eat much and believes that she has lost a proximally 15 lb. The patient states that over the last 4 days she has been experiencing epigastric pain. She describes the pain is a constant, stabbing pain which is 8/10 at its worst. The pain does not radiate to her back. She states that she has some slight burning sensation with urinating but does not have urinary frequent or urgency. Patient states that she has been having liquidy stool for a long period of time since she has no teeth and can not eat solid foods. She denied diarrhea. She states that several times over the last 2 days she has developed numbness in her face, hands and feet with cramping of her hands. Patient states she had a uterine abscess which required surgery. She has had no other surgeries. She states that her last menstrual period was last week and was normal for her. Related Data Previous Rx's ?Medication ?Instructions ?Recorded acetaminophen 500 mg tablet 1,000 mg (2 x 500 mg) PO Q 6H PRN 03/16/23 (Tylenol Extra Strength) fever or pain #50 tabs naloxone 4 mg/actuation nasal 4 mg intranasal Q2M PRN opioid 04/20/24 spray (Narcan) overdose #2 ea Ventolin HFA 90 mcg/actuation 2 puff inhalation Q6H [place] N 04/27/24 aerosol inhaler (albuterol sulfate) shortness of breat h or wheezing 30 days #18 grams ondansetron HCl 4 mg tablet 4 mg PO Q8H PRN nausea and 10/31/24 vomiting #30 tabs nicotine 21 mg/24 hr daily 1 patch transdermal DAILY # 28 ea 12/11/24 transdermal patch citalopram 20 mg tablet 20 mg PO DAILY 30 days #30 t abs 04/01/25 lidocaine 5 % topical patch 1 patch topical DAILY #30 ea 04/01/25 oxycodone 5 mg tablet 5 mg PO BID PRN severe pain over 04/01/25 left hip 3 days #6 tabs gabapentin 400 mg capsule 400 mg PO BID #60 caps 05/13 tramadol 50 mg tablet 50 mg PO TID PRN pain 30 day s #90 05/13/25 tabs omeprazole 20 mg capsule,delayed 20 mg PO DAILY 30 day s #30 caps 06/03/25 release ondansetron 4 mg disintegrating 4 mg PO Q6-8H PRN naus ea and 06/03/25 tablet vomiting #14 tabs Allergies Allergy/AdvReac Type Severity Reaction Status Date / Time No Known Allergies (No Known Allergy Verified 06/03/25 06:50 Allergies*) Review of Systems Review of Systems Yes all other systems are reviewed and are negative [facility] Past Medical History [facility] Narrative: Social history: She smokes 6 cigarettes per day times 20 years. She denies alcohol use. She denies drug use Medical History (Updated 06/03/25 @ 10:25 by Jose Rice MD) Obesity (BMI 30-39.9) Overweight (BMI 25.0-29.9) Spondylosis of lumbosacral spine with radiculopathy Smoker Palpitations Anxiety Gastritis Surgical History H/O tooth extraction Family History Family History Father Medical history unknown Mother Hypertension Family/Other Hypertension Diabetes Social History Social History Housing: Apartment Alcohol intake: never Patient Tobacco Use Status: Current everyday Tobacco user Tobacco use type: Cigarette Cigarette Packs Per Day: 0.5 Cigarettes Per Day: 5 e-Cigarette/Vaping Use: Never Used Second Hand Smoke Exposure: Yes Substance Use Type: Marijuana Advance Directives: No Advance Directives Information Provided: Yes Do you have a plan to hurt others: No Plan service: No Current occupational status: employed Cognitive needs: No Hearing needs: No Vision needs: No Physical Exam ED Vital Signs: Vital Signs - 24 hr 06/03/25 06:48 Temperature 98 F Pulse Rate 90 Respiratory Rate 18 Blood Pressure 139/83 Pulse Oximetry 99 Oxygen Delivery Method Room Air BMI result Body Mass Index 31.2 Vital signs were normal Exam: General: Awake, alert in no distress Head: Normocephalic, atraumatic EENT: PERRL, sclera and conjunctiva are normal, mouth with no erythema or exudates Neck: Supple, no adenopathy Lung: breath sounds symmetric, no wheezing, no rales and no rhonchi Chest: symmetric movement, nontender Heart: regular rate and rhythm, normal S1, S2 no murmurs or rubs Abdomen: Soft, moderate epigastric tenderness, normoactive bowel sounds, no lower abdominal tenderness Back: no vertebral tenderness, mild left CVA tenderness Extremities: no deformities, moves all extremities symmetrically, no edema Neuro: Awake, alert, oriented, normal speech, cranial nerves 2-12 intact, moves all extremities symmetrically Psych: Pleasant, cooperative Medical Decision Making Medical Decision Making MDM Narrative: 39-year-old female with a history of gastritis, anxiety who presents emergency department for evaluation ofLack of appetite for 1 month, stabbing, epigastric abdominal pain x4 days associated with chills and nausea with no vomiting or diarrhea, 15 lb weight loss over 1 month. Patient had episodes of facial, bilateral hand and lower extremity numbness associated with carpal spasm. vital signs were normal. Exam revealed moderate epigastric tenderness and mild left- sided CVA tenderness. Differential diagnosis: Includes but is not limited to Gastritis, peptic ulcer disease, viral syndrome, pancreatitis, diverticulitis, appendicitis, urinary tract infection, pyelonephritis, anxiety, panic attack, anemia, electrolyte abnormalities Course: 07:29 I ordered a laboratory evaluation, IV insert, normal saline x1 L, Toradol 15 mg IV and Zofran 4 mg IV 10:21 My interpretation patient's laboratory evaluation as follows: CBC was normal. CMP was unremarkable except for an elevated chloride of 110 an elevated alkaline phosphatase of 109. COVID, influenza and RSV were negative. Quantitative beta- hCG was below detectable limits. Patient's urinalysis was positive for leukocytes. Microscopic revealed 0-5 WBCs, 6-10 squamous cells and 2+ bacteria- the patient has no frequency or dysuria therefore I do not think she has a urinary tract infection and this has most likely a non clean catch specimen. The patient is feeling better after the above treatment. I suspect that the patient has gastritis versus viral syndrome and I did discuss this with her. The patient will be started on Prilosec 20 mg once a day for 1 month and Zofran 4 mg ODT Q 6-8 hours as needed for nausea and vomiting. Patient was given printed and verbal instructions and discharged home. Differential Diagnosis Differential Diagnoses: The differential diagnosis associated with the presentation includes (See above) Admission/Observation Consideration of admission/observation: Escalation of care including admission/observation considered (Yes) Lab Data 06/03/25 07:25 06/03/25 07:25 Labs: Lab Results 06/03/25 06/03/25 Range/Units 07:25 07:38 WBC 6.1 (4.8-10.8) X10*3/uL RBC 4.63 (4.20-5.50) X10*6/uL Hgb 13.9 (12.0-16.0) g/dl Hct 39.6 (37.0-47.0) % MCV 85.5 (80.0-98.0) fL MCH 30.0 (27.0-33.0) pg MCHC 35.1 H (31.0-35.0) g/dl RDW 13.7 (11.0-16.0) % Plt Count 193 (160-400) X10*3/uL MPV 13.1 H (9.4-12.3) fL Immature Gran % (Auto) 0.2 (0.0-0.4) % Neut % (Auto) 74.0 H (45-73) % Lymph % (Auto) 18.5 L (20-40) % [place] % (Auto) 6.9 (2-11) % Eos % (Auto) 0.2 (0-4) % Baso % (Auto) 0.2 (0-2) % Lymph # (Auto) 1.1 L (1.2-4.9) X10*3/uL [place] # (Auto) 0.4 (0.1-1.2) X10*3/uL Eos # (Auto) 0.0 (0.0-0.4) X10*3/uL Baso # (Auto) 0.0 (0.0-0.2) X10*3/uL Abs Immat Gran (auto) 0.01 (0.00-0.03) X10*3/uL Absolute Neuts (auto) 4.5 (2.0-8.3) x10*3/uL Absolute Nucleated RBC 0.000 (0.0-0.012) X10*3/uL Nucleated RBC % (auto) 0.0 (0.0-0.2) /100WBC Smear Tech's Comments VERIFIED Sodium 141 (135-145) mmol/L Potassium 3.4 (3.3-5.1) mmol/L Chloride 110 H (96-108) mmol/L Carbon Dioxide 22 (22-29) mmol/L Anion Gap 12 (12-20) BUN 6 L (9-16) mg/dL Creatinine 0.62 (0.5-1.4) mg/dL Estim Creat Clear Calc 109.4 Estimated GFR > 60 Random Glucose 115 (60-115) mg/dL Calcium 8.9 (8.4-10.2) mg/dL Total Bilirubin 0.5 (0.0-1.0) mg/dL AST 30 (5-31) U/L ALT 109 H (0-31) U/L Alkaline Phosphatase 59 (39-117) U/L Total Protein 7.4 (6.5-8.0) g/dL Albumin 4.8 (3.5-5.0) g/dL Lipase 13 (8-78) U/L Beta HCG, Quant < 2 mIU/mL Urine Color Dark Yellow Urine Appearance Cloudy Urine pH 6.0 (5.0-9.0) Ur Specific Lewis >= 1.030 H (1.005-1.025) Urine Protein 30 (1+) H (Neg-Trace) mg/dL Urine Glucose (UA) Negative (Negative) mg/dL Urine Ketones 80 (Negative) mg/dL Urine Blood Negative (Negative) Urine Nitrite Negative (Negative) Ur Leukocyte Esterase Moderate (2+) H (Negative) Urine RBC 0-2 (0-2) /HPF Urine WBC 0-5 (0-5) /HPF Ur Squamous Epith Cells 6-10 (0-2) /HPF Urine Bacteria 2+ (None Seen) Hyaline Casts 0-2 (0-2) /LPF Influenza Type A (PCR) NEGATIVE (Negative) Influenza Type B (PCR) NEGATIVE (Negative) RSV RNA Qual (PCR) NEGATIVE (Negative) SARS-CoV-2 RNA (RT-PCR) NEGATIVE (Negative) Chronic Conditions Patient?s care impacted by: Other (Anxiety) Medications Administered Discontinued Medications Generic Name Dose Route Start Last Admin Trade Name Tadq PRN Reason Stop Dose Admin Sodium Chloride 1,000 mls @ 999 mls/hr 06/03/25 07:19 06/03/25 09:01 Ns IV 06/03/25 08:19 Infused .Q1H1M STA Infusion Ketorolac Tromethamine 15 mg 06/03/25 07:19 06/03/25 07:33 Ketorolac Tromethamine 15 Mg/Ml Vial IVPUSH 06/03/25 07:20 15 mg ONCE STA Administration Ondansetron HCl 4 mg 06/03/25 07:19 06/03/25 07:33 Ondansetron Hcl 4 Mg/2 Ml Vial IVPUSH 06/03/25 07:20 4 mg ONCE ONE Administration Discharge Plan Discharge Clinical Impression: Gastritis Qualifiers: Gastritis type: unspecified gastritis Chronicity: unspecified Gastritis bleeding: without bleeding Qualified Code(s): K29.70 - Gastritis, unspecified, without bleeding Patient Disposition: Home, Self-Care Instructions: Gastritis (ED) Additional Instructions: Your blood work was unremarkable. At this time I do not think that you have a urinary tract infection however if you develop painful urination, urinary frequency then I want you to follow up with your doctor return to the emergency department for evaluation for possible urinary tract infection. At this time I suspect that you have inflammation of your stomach from too much acid (gastritis) Take Prilosec (omeprazole) 20 mg pills, 1 pill once a day for 1 month. ?This medication shuts off your acid production and lets the inflammation in your stomach and esophagus heal. Take Zofran ODT 4 mg pills, 1 pill dissolved in your mouth every 8 hours as needed for nausea and vomiting. Follow-up with your doctor in 2 days. Please return to the emergency department if your symptoms get worse or if you develop any symptoms that are concerning to you. Please see the return to work note Prescriptions: New omeprazole 20 mg capsule,delayed release(DR/EC) 20 mg PO DAILY 30 Days Qty: 30 0RF ondansetron 4 mg tablet,disintegrating 4 mg PO Q6-8H PRN (Reason: nausea and vomiting) Qty: 14 0RF No Action naloxone [Narcan] 4 mg/actuation spray,non-aerosol 4 mg intranasal Q2M PRN (Reason: opioid overdose) Qty: 2 0RF Rx Instructions: spray 1 dose into ONE nostril; alternate nostrils w each dose until help arrives ondansetron HCl 4 mg tablet 4 mg PO Q8H PRN (Reason: nausea and vomiting) Qty: 30 0RF tramadol 50 mg tablet 50 mg PO TID PRN (Reason: pain) 30 Days Qty: 90 0RF gabapentin 400 mg capsule 400 mg PO BID Qty: 60 0RF acetaminophen [Tylenol Extra Strength] 500 mg tablet 1,000 mg PO Q6H PRN (Reason: fever or pain) Qty: 50 0RF albuterol sulfate [Ventolin HFA] 90 mcg/actuation HFA aerosol inhaler 2 puff inhalation Q6H PRN (Reason: shortness of breath or wheezing) 30 Days Qty: 18 0RF citalopram 20 mg tablet 20 mg PO DAILY 30 Days Qty: 30 2RF lidocaine 5 % adhesive patch,medicated 1 patch topical DAILY Qty: 30 2RF Rx Instructions: leave on most painful area for up to 12 hrs oxycodone 5 mg tablet 5 mg PO BID PRN (Reason: severe pain over left hip) 3 Days Qty: 6 0RF Rx Instructions: Partial Fill upon patient request. nicotine 21 mg/24 hr patch 24 hour 1 patch transdermal DAILY Qty: 28 0RF Stand Alone Forms: Work/School Release Print Language: Greenlandic
[2025-06-03 07:35] LABS: Hematocrit 39.6 % (37.0-47.0); Hemoglobin 13.9 g/dl (12.0-16.0); Imm Gran Abs Auto 0.01 X10*3/uL (0.00-0.03); Imm Gran Pct Auto 0.2 % (0.0-0.4); Lymphocytes Absolute Auto 1.1 X10*3/uL (1.2-4.9); MANUAL DIFF FLAG SCAN; Mean Corpuscular HGB Conc 35.1 g/dl (31.0-35.0); Mean Corpuscular Hemoglobin 30.0 pg (27.0-33.0); Mean Corpuscular Volume 85.5 fL (80.0-98.0); NRBC Abs Auto 0.000 X10*3/uL (0.0-0.012); NRBC Pct Auto 0.0 /100WBC (0.0-0.2); PLT CLUMP 1; Red Blood Count 4.63 X10*6/uL (4.20-5.50); SCAN SMEAR FLAG 1
[2025-06-03 07:38] LABS: Appearance Urine Cloudy; Glucose Urine UA Negative (Negative); PH 6.0 (5.0-9.0); Specific Gravity - Urine >= 1.030 (1.005-1.025); UMIC TRIGGER UACC YES
[2025-06-03 07:54] LABS: Alanine Aminotransferase 109 U/L (0-31); Albumin Level 4.8 g/dL (3.5-5.0); Alkaline Phosphatase 59 U/L (39-117); Anion Gap 12 (12-20); Aspartate Amino Transferase 30 U/L (5-31); Blood Urea Nitrogen 6 mg/dL (9-16); Calcium 8.9 mg/dL (8.4-10.2); Carbon Dioxide 22 mmol/L (22-29); Chloride 110 mmol/L (96-108); Creatinine Clr Calc Pharmacy 109.4; Estimated Glomerular Filt Rate > 60; Lipase 13 U/L (8-78); Potassium 3.4 mmol/L (3.3-5.1); Sodium 141 mmol/L (135-145); Total Protein 7.4 g/dL (6.5-8.0)
[2025-06-03 07:58] LABS: UACC Culture Trigger YES
[2025-06-03 08:09] LABS: Platelet Count 193 X10*3/uL (160-400); White Blood Count 6.1 X10*3/uL (4.8-10.8)
[2025-06-03 08:21] LABS: Resp Syncy Virus RNA Qual PCR NEGATIVE (Negative); SARS COV2 PCR INHOUSE NEGATIVE (Negative)
[2025-06-03 10:52] VITALS: BP 160/84; PULSE 74; RESP 16; TEMP 36.8; O2SAT 99
== END 2025-06-03 10:53 | disposition home or self-care (01) ==
PROVIDERS: Emergency Provider Emergency Medicine Emergency Medical Services; PCP Internal Medicine
DX: K29.70 Gastritis, unspecified, without bleeding (principal); F41.9 Anxiety disorder, unspecified
CPT/HCPCS: 36415; 80053; 81001; 83690; 84702; 85025; 87086; 87637; 96361; 96374; 96375; 99284; J1885; J2405

== ENCOUNTER 2025-06-05 07:43 | Emergency (ER) | payer OTHER, SELFPAY ==
--- NOTE | ~2025-06-05 | CT_ITS ---
EXAMINATION: CT ABDOMEN AND PELVIS WITH CONTRAST CLINICAL INFORMATION: Worsening epigastric pain COMPARISON: None available. TECHNIQUE: Multidetector volumetric images were obtained from the superior aspect of the liver through the pubic symphysis following administration 85 mL of Omnipaque 350 intravenous contrast. Sagittal and coronal reformatted images were obtained on the technologist's workstation. Oral contrast: No This CT examination was performed using dose optimization techniques as appropriate, variously including the following: *Automated exposure control *Adjustment of mA and/or kV according to patient size (this includes techniques or standardized protocols for targeted exams where dose is matched to indication/reason for exam; i.e. extremities or head) *Use of iterative reconstruction technique FINDINGS: LUNG BASES: The visualized lung bases are unremarkable. LIVER, GALLBLADDER, AND BILIARY TREE: Low-attenuation lesion in the right hepatic lobe and left medial segment are most consistent with simple hepatic cysts. Low-attenuation in the left medial segment adjacent fissure for ligamentum teres is consistent with focal fatty change. The gallbladder is unremarkable with no evidence of radiopaque gallstones, gallbladder wall thickening, or obvious pericholecystic inflammatory changes. PANCREAS: Unremarkable. SPLEEN: Unremarkable. ADRENAL GLANDS: Unremarkable. KIDNEYS AND URETERS: The kidneys are normal in size, shape, and attenuation. No hydronephrosis, hydroureter, or calculi seen. No perinephric stranding. BLADDER: Unremarkable. GASTROINTESTINAL TRACT: The small and large bowel are unremarkable. The appendix is unremarkable. ABDOMINAL WALL: No significant hernia is appreciated. LYMPH NODES: Normal. VASCULAR: Unremarkable. PELVIC VISCERA: IUD is present in the upper uterine canal. There is a mature follicle in each ovary. OSSEOUS STRUCTURES: Unremarkable. CT/CT abdomen pelvis w IV con IMPRESSION: No abnormality to explain the patient's epigastric pain. Fleischner guidelines were followed. Electronically signed by: Chance Lindquist MD 06/05/2025 01:35 PM [facility]
[2025-06-05 08:00] VITALS: BP 153/69; PULSE 74; RESP 20; TEMP 36.4; O2SAT 100; BMI 31.6
--- NOTE | 2025-06-05 08:06 | ECG_ITS ---
Test Reason : epigastric pain Blood Pressure : */* mmHG Vent. Rate : 76 BPM Atrial Rate : 76 BPM P-R Int : 132 ms QRS Dur : 86 ms QT Int : 390 ms P-R-T Axes : 76 50 27 degrees QTcB Int : 438 ms Normal sinus rhythm with sinus arrhythmia Possible Left atrial enlargement Borderline ECG When compared with ECG of 07-Sep-2023 10:24, No significant change was found Referred By: Generic ED Physician Electronically Signed By: VALENCIA TOBIN
[2025-06-05 08:47] LABS: Alanine Aminotransferase 67 U/L (0-31); Albumin Level 4.8 g/dL (3.5-5.0); Alkaline Phosphatase 57 U/L (39-117); Anion Gap 13 (12-20); Aspartate Amino Transferase 25 U/L (5-31); Blood Urea Nitrogen 6 mg/dL (9-16); Calcium 9.3 mg/dL (8.4-10.2); Carbon Dioxide 23 mmol/L (22-29); Chloride 110 mmol/L (96-108); Creatinine Clr Calc Pharmacy 100.3; Estimated Glomerular Filt Rate > 60; Hematocrit 39.4 % (37.0-47.0); Hemoglobin 13.8 g/dl (12.0-16.0); Imm Gran Abs Auto 0.03 X10*3/uL (0.00-0.03); Imm Gran Pct Auto 0.5 % (0.0-0.4); Lipase 22 U/L (8-78); Lymphocytes Absolute Auto 1.3 X10*3/uL (1.2-4.9); MANUAL DIFF FLAG SCAN; Mean Corpuscular HGB Conc 35.0 g/dl (31.0-35.0); Mean Corpuscular Hemoglobin 29.9 pg (27.0-33.0); Mean Corpuscular Volume 85.3 fL (80.0-98.0); NRBC Abs Auto 0.000 X10*3/uL (0.0-0.012); NRBC Pct Auto 0.0 /100WBC (0.0-0.2); PLT CLUMP 1; Potassium 3.8 mmol/L (3.3-5.1); Red Blood Count 4.62 X10*6/uL (4.20-5.50); SCAN SMEAR FLAG 1; Sodium 142 mmol/L (135-145); Total Protein 7.3 g/dL (6.5-8.0)
[2025-06-05 08:51] LABS: Appearance Urine Clear; Glucose Urine UA Negative (Negative); PH 6.0 (5.0-9.0); Specific Gravity - Urine >= 1.030 (1.005-1.025); UMIC TRIGGER UACC YES
[2025-06-05 08:54] LABS: UPreg QC Valid YES
[2025-06-05 09:47] LABS: Platelet Count 189 X10*3/uL (160-400); White Blood Count 6.1 X10*3/uL (4.8-10.8)
[2025-06-05 11:20] VITALS: BP 147/66; PULSE 70; RESP 18; TEMP 36.1; O2SAT 100
--- NOTE | 2025-06-05 11:23 | ED.ABDPAIN ---
HPI - Abdominal Pain General Chief Complaint: Abdominal Pain Stated Complaint: vomiting diarrhea Time Seen by Provider: 06/05/25 10:53 Source: patient, RN notes reviewed and old records reviewed Mode of arrival: ambulatory Limitations: no limitations History of Present Illness ED Provider: URI Espinoza HPI narrative: 39-year-old female with medical history of gastritis, anxiety presents to ED due to 2 weeks of GI upset. Patient states her symptoms have been consistent over the last 2 weeks with nausea, vomiting and watery diarrhea. Patient states during this time period she has been experiencing intermittent epigastric pain that she describes as a burning sensation that travels to the back, and numbness and tingling of B/L hands only when vomiting, and resolve after the vomiting episode. Patient states the stools have been watery in consistency and denies blood. Patient states she was seen in the department 2 days ago and was discharged with prilosec and zofran. Patient states she woke up this morning with nausea, vomited twice and felt burning pain in the epigastric area radiating to the back took a dose of her prilosec and zofran but did not treat the discomfort immediately. Patient states the pain was 8/10 prior to arrival and is now 4/10 after medications at home. Patient denies recent travel, sick contacts, fevers, chills, headaches, visual changes, lightheadedness, dizziness, syncope, cough, nasal congestion, urinary symptoms. Related Data Previous Rx's ?Medication ?Instructions ?Recorded acetaminophen 500 mg tablet 1,000 mg (2 x 500 mg) PO Q6H PRN 03/16/23 (Tylenol Extra Strength) fever or pain #50 tabs naloxone 4 mg/actuation nasal 4 mg intranasal Q2M PRN opioid 04/20/24 spray (Narcan) overdose #2 ea Ventolin HFA 90 mcg/actuation 2 puff inhalation Q6H PRN 04/27/24 aerosol inhaler (albuterol sulfate) shortness of breath or wheezing 30 days #18 grams ondansetron HCl 4 mg tablet 4 mg PO Q8H PRN nausea and 10/31/24 vomiting #30 tabs nicotine 21 mg/24 hr daily 1 patch transdermal DAILY #28 ea 12/11/24 transdermal patch citalopram 20 mg tablet 20 mg PO DAILY 30 days #30 tabs 04/01/25 lidocaine 5 % topical patch 1 patch topical DAILY #30 ea 04/01/25 oxycodone 5 mg tablet 5 mg PO BID PRN severe pain over 04/01/25 left hip 3 days #6 tabs gabapentin 400 mg capsule 400 mg PO BID #60 caps 05/13/25 tramadol 50 mg tablet 50 mg PO TID PRN pain 30 days #90 05/13/25 tabs omeprazole 20 mg capsule,delayed 20 mg PO DAILY 30 days #30 caps 06/03/25 release ondansetron 4 mg disintegrating 4 mg PO Q6-8H PRN nausea and 06/03/25 tablet vomiting #14 tabs Allergies Allergy/AdvReac Type Severity Reaction Status Date / Time No Known Allergies (No Known Allergy Verified 06/05/25 08:04 Allergies*) Review of Systems Review of Systems Yes all other systems are reviewed and are negative [facility] Past Medical History Attestation statement: The following information was validated with the patient. Source: old records reviewed and nursing notes reviewed Medical History Obesity (BMI 30-39.9) Overweight (BMI 25.0-29.9) Spondylosis of lumbosacral spine with radiculopathy Smoker Palpitations Anxiety Gastritis Surgical History H/O tooth extraction Family History Family History Father Medical history unknown Mother Hypertension Family/Other Hypertension Diabetes Social History Social History Housing: Apartment Alcohol intake: never Patient Tobacco Use Status: Current everyday Tobacco user Tobacco use type: Cigarette Cigarette Packs Per Day: 0.5 Cigarettes Per Day: 5 e-Cigarette/Vaping Use: Never Used Second Hand Smoke Exposure: Yes Substance Use Type: Marijuana service: No Current occupational status: employed Cognitive needs: No Hearing needs: No Vision needs: No Physical Exam ED Vital Signs: Vital Signs - 24 hr 06/05/25 08:00 06/05/25 11:20 Temperature 97.5 F 97 F Pulse Rate 74 70 Respiratory Rate 20 18 Blood Pressure 153/69 H 147/66 H Pulse Oximetry 100 100 Oxygen Delivery Method Room Air Room Air BMI result Body Mass Index 31.6 GENERAL APPEARANCE: ?AxOx4, generally well-appearing, non toxic appearing, no acute distress. HEENT: ?NC, AT. MMM. EOMI, clear conjunctiva, oropharynx clear. NECK: ?Supple without lymphadenopathy.? No stiffness or restricted ROM. HEART:? Normal rate and regular rhythm, normal S1/S2, no m/r/g LUNGS:? CTAB, moving air well. No crackles or wheezes are heard. ABDOMEN: ?Soft, nondistended, no rigidity, negative Otero's sign, no rebound tenderness, very mild tenderness of the epigastric region, no overlying skin changes, no ecchymosis BACK: No CVAT, no obvious deformity. EXTREMITIES: ?Without cyanosis, clubbing or edema. NEUROLOGICAL: ?Grossly nonfocal. Alert and oriented, moving all 4 extremities. Observed to ambulate with normal gait. Skin: ?Warm and dry without any rash. Medical Decision Making Medical Decision Making MDM Narrative: 39-year-old female with medical history of gastritis, anxiety presents to ED due to 2 weeks of GI upset. Patient states her symptoms have been consistent over the last 2 weeks with nausea, vomiting and watery diarrhea with epigastric burning that radiates into the back and numbness/tingling of B/L hands only when vomiting, and these symptoms resolve after the episode. Patient was seen in the department 2 days ago and was discharged with prilosec and zofran. Patient took dose of priolosec and zofran prior to arrival but came into the department after she did not have relief with those medications. Patient states the medications did help as she rated her pain 8/10 and pain is now 4/10. VS on initial observation-BP 147/66, pulse rate of 70, respiratory rate of 18, afebrile with oral temp of 97?, O2 saturation 100% on room air. - Patient medicated with 1L IV fluids, 4mg IV morphine, 4mg IV zofran Patient seen in the department for same symptoms. Today I will add on stool sample, with CT abdomen/pelvis for further evaluation due to patients persistent symptoms and no prior imaging. Plan: labs, UA, EKG, CT abdomen pelvis EKG reveals a normal sinus rhythm with left axis deviation, nonspecific T-wave inversions in AVR, V1, no ST-elevation/depression, lengthened QT, initial troponin undetectable at <2.7, patient with 2 weeks of intermittent epigastric burning and pain in the chest when vomiting, most likely due to forceful vomiting, less likely ACS. Labs without leukocytosis/leukopenia, no evidence of anemia, no electrolyte abnormalities, mild elevation of ALT of 67. Chloride elevated at 110, BUN decreased at 6, this is most likely due to dehydration and multiple episodes of vomiting. UA reveals increased specific gravity consistent with concentrated urine, 1+ urine protein, trace leukocyte esterase, 3-5 squamous epithelial cells, trace urine bacteria, urine test negative. CT abdomen and pelvis without any acute intra-abdominal abnormalities. Patient was unable to have a bowel movement while in the department for evaluation of the stool Patient with 2 weeks of nausea, vomiting, and watery diarrhea with epigastric abdominal pain. Patient was seen in the department 2 days ago and discharged home with Prilosec and Zofran. Patient lab work today without leukocytosis/leukopenia, afebrile with very mild abdominal pain with palpation- less likely gastroenteritis. Patient's UA with trace leukocyte esterase, trace urine bacteria, patient without urinary symptoms, no suprapubic pain, no indication to treat for antibiotics at this time we will await for reflex culture and if specific bacteria grows we will start patient on appropriate antibiotics. Patient is able to tolerate PO of crackers and gingerale while in the department. CT abdomen pelvis without acute intra-abdominal abnormalities. Patient without recent travel, unlikely to have gastroenteritis. Patient was unable to have a bowel movement while in the department for further evaluation of the stool. Patients symptoms are managed with prilosec and zofran. I have instructed patient to continue taking Prilosec and Zofran to manage her symptoms at home. I have placed referral to GI for patient to follow up with for further evaluation and management of abdominal pain. Patient's symptoms have resolved significantly after medication with 1 L IV fluids, 4 mg IV Zofran , 4 mg IV morphine. Patient is well enough to go home for self-care at this time. I counseled patient on strict return precautions. Patient is in agreement with the plan. Differential Diagnosis Differential Diagnoses: The differential diagnosis associated with the presentation includes Acute abdomen Gastroenteritis Gastritis Peptic ulcer disease Admission/Observation Consideration of admission/observation: Escalation of care including admission/observation considered Patient afebrile, no leukocytosis, no tachycardia, no indication for admission at this time. Lab Data MDM Lab Attestation statement: I reviewed the patient's lab results. 06/05/25 08:24 06/05/25 08:24 Labs: Lab Results 06/05/25 06/05/25 06/05/25 Range/Units 08:24 08:29 12:34 WBC 6.1 (4.8-10.8) X10*3/uL RBC 4.62 (4.20-5.50) X10*6/uL Hgb 13.8 (12.0-16.0) g/dl Hct 39.4 (37.0-47.0) % MCV 85.3 (80.0-98.0) fL MCH 29.9 (27.0-33.0) pg MCHC 35.0 (31.0-35.0) g/dl RDW 13.9 (11.0-16.0) % Plt Count 189 (160-400) X10*3/uL MPV 13.7 H (9.4-12.3) fL Immature Gran % (Auto) 0.5 H (0.0-0.4) % Neut % (Auto) 72.2 (45-73) % Lymph % (Auto) 20.7 (20-40) % Reeves % (Auto) 6.1 (2-11) % Eos % (Auto) 0.2 (0-4) % Baso % (Auto) 0.3 (0-2) % Lymph # (Auto) 1.3 (1.2-4.9) X10*3/uL Reeves # (Auto) 0.4 (0.1-1.2) X10*3/uL Eos # (Auto) 0.0 (0.0-0.4) X10*3/uL Baso # (Auto) 0.0 (0.0-0.2) X10*3/uL Abs Immat Gran (auto) 0.03 (0.00-0.03) X10*3/uL Absolute Neuts (auto) 4.4 (2.0-8.3) x10*3/uL Absolute Nucleated RBC 0.000 (0.0-0.012) X10*3/uL Nucleated RBC % (auto) 0.0 (0.0-0.2) /100WBC Smear Tech's Comments VERIFIED Sodium 142 (135-145) mmol/L Potassium 3.8 (3.3-5.1) mmol/L Chloride 110 H (96-108) mmol/L Carbon Dioxide 23 (22-29) mmol/L Anion Gap 13 (12-20) BUN 6 L (9-16) mg/dL Creatinine 0.68 (0.5-1.4) mg/dL Estim Creat Clear Calc 100.3 Estimated GFR > 60 Random Glucose 103 (60-115) mg/dL Calcium 9.3 (8.4-10.2) mg/dL Total Bilirubin 0.4 (0.0-1.0) mg/dL Direct Bilirubin 0.1 (0.0-0.5) mg/dL AST 25 (5-31) U/L ALT 67 H (0-31) U/L Alkaline Phosphatase 57 (39-117) U/L Troponin I High Sens < 2.7 (<3.5-17.0) ng/L Total Protein 7.3 (6.5-8.0) g/dL Albumin 4.8 (3.5-5.0) g/dL Lipase 22 (8-78) U/L Urine Color Dark Yellow Urine Appearance Clear Urine pH 6.0 (5.0-9.0) Ur Specific [place] >= 1.030 H (1.005-1.025) Urine Protein 30 (1+) H (Neg-Trace) mg/dL Urine Glucose (UA) Negative (Negative) mg/dL Urine Ketones 40 (Negative) mg/dL Urine Blood Negative (Negative) Urine Nitrite Negative (Negative) Ur Leukocyte Esterase Trace H (Negative) Urine RBC 0-2 (0-2) /HPF Urine WBC 0-5 (0-5) /HPF Ur Squamous Epith Cells 3-5 (0-2) /HPF Urine Bacteria Trace (None Seen) Hyaline Casts 3-5 (0-2) /LPF Urine Test NEGATIVE (NEGATIVE) Influenza Type A (PCR) NEGATIVE (Negative) Influenza Type B (PCR) NEGATIVE (Negative) RSV RNA Qual (PCR) NEGATIVE (Negative) SARS-CoV-2 RNA (RT-PCR) NEGATIVE (Negative) Independent Interpretation I performed an independent interpretation of an: EKG and CT Scan Interpretation: I personally interpreted the EKG reveals a normal sinus rhythm with left axis deviation, nonspecific T-wave inversions in AVR, V1, no ST-elevation/depression, lengthened QT Vent. Rate : 76 BPM Atrial Rate : 76 BPM P-R Int : 132 ms QRS Dur : 86 ms QT Int : 390 ms P-R-T Axes : 76 50 27 degrees QTcB Int : 438 ms Normal sinus rhythm with sinus arrhythmia Possible Left atrial enlargement Borderline ECG When compared with ECG of 07-Sep-2023 10:24, No significant change was found I personally interpreted the CT abdomen and pelvis which was negative for any acute intra-abdominal abnormalities, I agree with the radiologists interpretation Radiology Impression Discussion of test interpretation with radiology: I have reviewed the radiologist's reading. Radiologist Impression: CT abdomen and pelvis FINDINGS: LUNG BASES: The visualized lung bases are unremarkable. LIVER, GALLBLADDER, AND BILIARY TREE: Low-attenuation lesion in the right hepatic lobe and left medial segment are most consistent with simple hepatic cysts. Low-attenuation in the left medial segment adjacent fissure for ligamentum teres is consistent with focal fatty change. The gallbladder is unremarkable with no evidence of radiopaque gallstones, gallbladder wall thickening, or obvious pericholecystic inflammatory changes. PANCREAS: Unremarkable. SPLEEN: Unremarkable. ADRENAL GLANDS: Unremarkable. KIDNEYS AND URETERS: The kidneys are normal in size, shape, and attenuation. No hydronephrosis, hydroureter, or calculi seen. No perinephric stranding. BLADDER: Unremarkable. GASTROINTESTINAL TRACT: The small and large bowel are unremarkable. The appendix is unremarkable. ABDOMINAL WALL: No significant hernia is appreciated. LYMPH NODES: Normal. VASCULAR: Unremarkable. PELVIC VISCERA: IUD is present in the upper uterine canal. There is a mature follicle in each ovary. OSSEOUS STRUCTURES: Unremarkable. CT/CT abdomen pelvis w IV con IMPRESSION: No abnormality to explain the patient's epigastric pain. Fleischner guidelines were followed. Electronically signed by: Chance Lindquist MD 06/05/2025 01:35 PM EST Dictated By: Chance Lindquist MD Signed By: <Electronically signed by Chance Lindquist MD in OV> 06/05/25 1335 External Record Review External record reviewed: Inpatient record, Office record and Outpatient record Prescription Management I considered prescription management with: Antibiotic I considered antibiotics however patient unable to have a bowel movement I am unable to evaluate the consistency of the stool, patient is afebrile, with no leukocytosis, tachycardia, no indication for antibiotics at this time Chronic Conditions Patient?s care impacted by: Other (Gastritis, anxiety) Medications Administered Discontinued Medications Generic Name Dose Route Start Last Admin Trade Name Freq PRN Reason Stop Dose Admin Lactated Ringer's 1,000 mls @ 999 mls/hr 06/05/25 12:35 06/05/25 14:31 Lr IV 06/05/25 13:35 Infused .Q1H1M ONE Infusion Iohexol 100 ml 06/05/25 13:10 06/05/25 13:11 Iohexol 350 Mg/Ml 100 Ml Infus..Btl IV 06/05/25 13:11 85 ml ONCE ONE Administration Morphine Sulfate 4 mg 06/05/25 12:35 06/05/25 12:49 Morphine Sulfate 4 Mg/Ml Cartridge IVPUSH 06/05/25 12:36 4 mg ONCE ONE Administration Protocol Ondansetron HCl 4 mg 06/05/25 12:35 06/05/25 12:49 Ondansetron Hcl 4 Mg/2 Ml Vial IVPUSH 06/05/25 12:36 4 mg ONCE ONE Administration Critical Care Time Critical Care Time Total Critical Care Time: 37 Attestation: I have personally provided critical care time exclusive of time spent on separately billable procedures. Time includes review of lab data, radiology results, discussion with consultants, and monitoring for potential decompensation. Intervention performed as documented. Discharge Plan Discharge Clinical Impression: Gastritis Qualifiers: Gastritis type: unspecified gastritis Chronicity: unspecified Gastritis bleeding: without bleeding Qualified Code(s): K29.70 - Gastritis, unspecified, without bleeding Patient Disposition: Home, Self-Care Instructions: Gastritis (DC), Diet for Stomach Ulcers and Gastritis (ED) Additional Instructions: You were evaluated in the emergency department due to abdominal pain and diarrhea. Your lab work was reassuring as you do not have a significant increase or decrease in your white blood cell count that is indicative of systemic infection, no evidence of anemia, no electrolyte abnormalities. Your EKG did not have an emergent pattern, your troponin which is a protein that the heart gives off when under stress or damage was undetectable today. The CT imaging of your abdomen and pelvis was normal. You were unable to provide a stool sample while in the department today. Please continue taking the medications that were prescribed to you during your last visit in the emergency department, [facility] and Julia to manage your symptoms at home. I have placed referral to [facility] Gastroenterology for imaging such as upper endoscopy and/or colonoscopy for further evaluation and management of your abdominal pain. You need to call their office as they will not call you. Please return to the emergency department if you experience fevers over 100.4? that are not managed by Tylenol/Motrin, worsening abdominal pain, inability to have a bowel movement, or any new/worsening/concerning symptoms. Prescriptions: No Action naloxone [Narcan] 4 mg/actuation spray,non-aerosol 4 mg intranasal Q2M PRN (Reason: opioid overdose) Qty: 2 0RF Rx Instructions: spray 1 dose into ONE nostril; alternate nostrils w each dose until help arrives ondansetron HCl 4 mg tablet 4 mg PO Q8H PRN (Reason: nausea and vomiting) Qty: 30 0RF tramadol 50 mg tablet 50 mg PO TID PRN (Reason: pain) 30 Days Qty: 90 0RF gabapentin 400 mg capsule 400 mg PO BID Qty: 60 0RF omeprazole 20 mg capsule,delayed release(DR/EC) 20 mg PO DAILY 30 Days Qty: 30 0RF ondansetron 4 mg tablet,disintegrating 4 mg PO Q6-8H PRN (Reason: nausea and vomiting) Qty: 14 0RF acetaminophen [Tylenol Extra Strength] 500 mg tablet 1,000 mg PO Q6H PRN (Reason: fever or pain) Qty: 50 0RF albuterol sulfate [Ventolin HFA] 90 mcg/actuation HFA aerosol inhaler 2 puff inhalation Q6H PRN (Reason: shortness of breath or wheezing) 30 Days Qty: 18 0RF citalopram 20 mg tablet 20 mg PO DAILY 30 Days Qty: 30 2RF lidocaine 5 % adhesive patch,medicated 1 patch topical DAILY Qty: 30 2RF Rx Instructions: leave on most painful area for up to 12 hrs oxycodone 5 mg tablet 5 mg PO BID PRN (Reason: severe pain over left hip) 3 Days Qty: 6 0RF Rx Instructions: Partial Fill upon patient request. nicotine 21 mg/24 hr patch 24 hour 1 patch transdermal DAILY Qty: 28 0RF Referrals: [facility] Gastroenterology Services [Provider Group, Gastroenterology] Interventions: ED Discharge Assessment Last Done: 06/05/25 14:36 Discharge Date/Time: 06/05/25 14:43 Print Language: Namibian
[2025-06-05 12:03] LABS: Troponin-I High Sensitivity < 2.7 ng/L (<3.5-17.0)
[2025-06-05] MEDS: Lactated Ringers 1,000 ML 999 ML IV (12:49)
[2025-06-05] MEDS: iohexoL 350 MG/ML 100 ML INFUS..BTL IV (13:11)
[2025-06-05 13:19] LABS: Resp Syncy Virus RNA Qual PCR NEGATIVE (Negative); SARS COV2 PCR INHOUSE NEGATIVE (Negative)
--- OUTSIDE RECORDS SUMMARY | 2025-06-05 13:49 | XMS_ITS | Clinical Summary ---
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
[2025-06-05 14:36] VITALS: BP 132/70; PULSE 69; RESP 18; TEMP 36.2; O2SAT 100
== END 2025-06-05 14:43 | disposition home or self-care (01) ==
PROVIDERS: Emergency Provider Emergency Medicine; PCP Internal Medicine
DX: R10.13 Epigastric pain (principal); K29.70 Gastritis, unspecified, without bleeding; R11.10 Vomiting, unspecified; R19.7 Diarrhea, unspecified; Z03.818 Encounter for observation for suspected exposure to other biological agents ruled out; R94.31 Abnormal electrocardiogram [ECG] [EKG]; F17.200 Nicotine dependence, unspecified, uncomplicated; Z71.6 Tobacco abuse counseling
CPT/HCPCS: 36415; 74177; 80048; 80076; 81001; 81025; 83690; 84484; 85025; 87637; 93005; 96361; 96374; 96375; 99285; J2270; J2405; J7120; Q9967

== ENCOUNTER → 2025-06-05 08:06 | Outpatient (BNV) | payer OTHER, SELFPAY | PROVIDERS: Emergency Provider Emergency Medicine; PCP Internal Medicine; Visit Provider Internal Medicine | DX: R10.13 Epigastric pain (principal) | CPT/HCPCS: 93010 ==

== ENCOUNTER → 2025-06-05 11:51 | Outpatient (BNV) | payer OTHER, SELFPAY | PROVIDERS: Emergency Provider Emergency Medicine; PCP Internal Medicine; Visit Provider Radiology Diagnostic Radiology | DX: R10.13 Epigastric pain (principal) | CPT/HCPCS: 74177 ==

== ENCOUNTER 2025-07-02 15:11 | Outpatient (AMB) | payer OTHER, SELFPAY ==
[2025-07-02 15:28] VITALS: BP 138/84; PULSE 97; O2SAT 99; BMI 31.3
--- NOTE | 2025-07-02 15:28 | A.OFFPC_ITS ---
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 Honer Required: No Accompanied by: Self / Same As Patient Allergies No Known Allergies (No Known Allergies*) Allergy (Verified 07/06/25 22:58) Medication List - Last Reconciled 07/06/25 by Iftikhar Alvarez MD acetaminophen (Tylenol Extra Strength) 1,000 mg (2 x 500 mg) PO Q6H PRN citalopram 20 mg PO DAILY 30 days gabapentin 400 mg PO BID lidocaine 5% 1 patch topical DAILY naloxone 4 mg/actuation (Narcan) 4 mg intranasal Q2M PRN nicotine 1 patch transdermal DAILY omeprazole 20 mg PO DAILY 30 days ondansetron 4 mg PO Q6-8H PRN ondansetron HCl 4 mg PO Q8H PRN oxycodone 5 mg PO .QD-BID PRN 5 days tramadol 50 mg PO TID PRN 30 days Ventolin HFA 90 mcg/actuation (albuterol sulfate) 2 puffs inhalation Q6H PRN 30 days NS Tobacco use date assessed: 07/02/25 Dental Screening Dental Screen Date: 07/02/25 HPI 3mth f/u HPI Details - The patient is a 39 year old female pr esenting for management of injuries from a recent fall, follow-up of gastritis, and worsening migraines. - The patient reports she fell yesterday , resulting in a bruise and significant pain in her right and left buttocks. - She describes her stomach as feeling weird, particularly after consuming hot food. She is currently taking omeprazole for this condition and Zofran for associated nausea. - She reports a recent increase in migra ine frequency to 2-3 times per week over the last three weeks, for which she has been taking Tylenol with insufficient relief. - The migraines are severe, requiring he r to be in a dark, quiet room. - The patient has a family history of he adaches, affecting her mother and grandmother. - Needs a couple of Rx refilled and woul d also like to get some Rx for pain again for her recent injuries - She had some labs done at [facility] this month but was not able to get her fasting labs done prior to her appointment today [facility] Medical History Obesity (BMI 30-39.9) Overweight (BMI 25.0-29.9) Spondylosis of lumbosacral spine with radiculopathy Smoker Palpitations Anxiety Gastritis Surgical History H/O tooth extraction Family History Father Medical history unknown Mother Hypertension Family/Other Hypertension Diabetes Social History Housing: Apartment Alcohol intake: never Patient Tobacco Use Status: Current everyday Tobacco user Tobacco use type: Cigarette Cigarette Packs Per Day: 0.5 Cigarettes Per Day: 5 e-Cigarette/Vaping Use: Never Used Second Hand Smoke Exposure: Yes Substance Use Type: Marijuana service: No Current occupational status: employed Cognitive needs: No Hearing needs: No Vision needs: No Questionnaire PHQ-9 Over the last 2 weeks, how often have you been bothered by any of the following problems? 1. Little interest or pleasure in doing things: several days 2. Feeling down, depressed, or hopeless: several days 3. Trouble falling or staying asleep, or sleeping too much: nearly every day 4. Feeling tired or having little energy: more than half the days 5. Poor appetite or overeating: more than half the days 6. Feeling bad about yourself - or that you are a failure or have let yourself or your family down: not at all 7. Trouble concentrating on things, such as reading the newspaper or watching television: more than half the days 8. Moving or speaking so slowly that other people could have noticed. Or the opposite - being so fidgety or restless that you have been moving around a lot more than usual: several days 9. Thoughts that you would be better off or of hurting yourself in some way: not at all Total score: 12 Depression Screening Interpretation: Positive Depression Screening Follow-up: Existing condition and In treatment Depression Screening Done: Yes [id number] - PHQ-9 Billing: Yes Source: Developed by Drs. Hilario Maldonado, Rima Louis, Ashish Silva and colleagues, with an educational sebastián from [employer]. Thrive Questionnaire Date Thrive assessed: 07/02/25 I am a: Patient What is your living situation today?: I have a steady place to live Within the past 12 months, did the food you bought not last and you didn't have the money to get more?: Sometimes True Within the past 12 months, did you worry whether your food would run out before you got money to buy more?: Often true Do you have trouble paying for medicines?: Yes Do you have trouble getting transportation to medical appointments?: No Do you have trouble paying your heating and electricity bill?: Yes Do you have trouble taking care of your child, family member or friend?: No Do you have trouble with day-to-day activities such as bathing, preparing meals, shopping, managing finances, etc.?: Yes Are you currently unemployed and looking for a job?: No Are you interested in more education?: Yes Please select the resources that you would like help with: None Currently or been in a relationship where the following occur: I choose not to answer THRIVE Score: 3 AUDIT C Alcohol Use Questionnaire (AUDIT-C) 1. How often do you have a drink containing alcohol?: Never 3. How often do you have six or more drinks on one occasion?: Never Total Score: 0 Score Reviewed/Action Taken: Yes ALICIA-7 AMB Questionnaire ALICIA-7 Date ALICIA - 7 assessed: 07/02/25 Feeling nervous, anxious, or on edge: 0 = Not at all Not being able to stop or control worryin = Not at all Worrying too much about different things: 0 = Not at all Trouble relaxin = Not at all Being so restless that it is hard to sit still: 0 = Not at all Becoming easily annoyed or irritable: 0 = Not at all Feeling afraid as if something awful might happen: 0 = Not at all Total ALICIA-7 score (0-4 normal; 5-9 mild; 10-14 moderate; 15-21 severe): 0 Source: Developed by Drs. Hilario Maldonado, Ashish Biswas and colleagues, with an educational sebastián from [employer]. Review of Systems Const Denies chills, Reports difficulty sleeping, Denies fatigue, Denies fever(s) and Reports headache(s) (recurrent - increasing lately) ENT Denies dysphagia, Denies dizziness, Denies otalgia, Reports headache(s) (recurrent - increasing lately), Denies neck pain, Denies odynophagia and Denies sore throat Card Denies chest pain, Denies rapid heart rate, Denies irregular heart rhythm, Denies palpitations and Reports dyspnea (on and off - is still smoking actively) Resp Denies chest congestion, Denies cough, Reports dyspnea (on and off - is still smoking actively) and Denies wheezing GI Denies abdominal pain (but reports (+) discomfort after eating hot foods), Denies constipation, Denies dysphagia, Denies heartburn, Denies diarrhea, Reports nausea (at times), Denies odynophagia and Denies vomiting Denies difficulty voiding, Denies dysuria and Denies urinary urgency Musc Details: (+) bruising and pain over both buttocks Reports back pain (over the lower back - chronic; (+) left flank pain recently - s/p fall), Reports arthralgias (over the left hip - s/p fall recently) and Denies neck pain Skin/Breast Denies rash Neuro Denies dizziness, Reports headache(s) (recurrent - increasing lately) and Denies paresthesias Psych Reports anxiety and Denies depression Endo Denies fatigue and Denies palpitations Molina/Lymph Denies easy bruising Aller/Immun Denies wheezing Physical exam (Primary Care) Vital Signs: Last Vital Signs Pulse 97 07/02/25 15:28 BP 138/84 07/02/25 15:28 Pulse Ox 99 07/02/25 15:28 Oxygen Delivery Method Room Air 07/02/25 15:28 BMI result Body Mass Index 31.3 Tobacco/Smoking Status: Tobacco use Status Tobacco use date assessed 07/02/25 07/02/25 15:37 Patient Tobacco Use Status Current everyday Tobacco 07/02/25 15:37 Tobacco use type Cigarette 07/02/25 15:37 e-Cigarette/Vaping Use Never Used 07/02/25 15:37 PHQ-9: PHQ-9 Score PHQ-9: Total score 12 07/02/25 16:17 Depression Screening Interpretation: Positive Depression Screening Follow-up: Existing condition and In treatment Thrive Assessment: Date of Thrive Assessment Date Thrive assessed 07/02/25 07/02/25 15:37 Currently or been in a relationship where the following occur: I choose not to answer Const General: no acute distress and alert HENMT Ears: TM's normal bilaterally and EAC's normal Throat: Yes posterior oropharynx normal and Yes tonsils normal (no TP congestion) Neck Neck: Yes supple and No lymphadenopathy Thyroid: Thyroid normal Resp Auscultation: no rales, no wheezes and diminished lung sounds (slightly) bilateral Cardio Rate: regular rate Rhythm: regular rhythm Heart sounds: no murmurs GI Palpation (GI): Soft to palpation and nontender Auscultation: normal bowel sounds General: Yes no CVA tenderness Back/Spine/Pelvis Other: (+) bruising and tenderness over the buttocks bilaterally Back: no CVA tenderness Thoracic/Lumbar Spine: lumbar spinal tenderness (mild) Skin Rashes: no rashes Extrem General: Yes no clubbing, cyanosis or edema Results Reviewed Results Reviewed: Laboratory Tests 03/28/25 06/05/25 11:46 08:24 WBC 6.1 Hgb 13.8 Hct 39.4 Plt Count 189 Sodium 142 Potassium 3.8 Creatinine 0.68 Estimated GFR > 60 Random Glucose 103 Calcium 9.3 AST 25 ALT 67 H TSH 0.64 Coding Level of Care Code Est Pt Level 4 (53504) Diagnoses Gastritis without bleeding, unspecified chronicity, unspecified gastritis type K29.70 Chronicity: unspecified Gastritis bleeding: without bleeding Gastritis type: unspecified gastritis Recurrent headache R51.9 Spondylosis of lumbosacral spine with radiculopathy M47.27 Traumatic ecchymosis of buttock, sequela S30.0XXS Encounter type: sequela Anxiety F41.9 Smoker F17.200 Obesity (BMI 30-39.9) E66.9 Additional Codes PHQ-9 - 07959 - PHQ-9 Billing: Yes ([id number]) Assessment & Plan Assessment & Plan (1) Gastritis: Code(s): K29.70 - Gastritis, unspecified, without bleeding Category: Medical Qualifiers: Chronicity: unspecified Gastritis bleeding: without bleeding Gastritis type: unspecified gastritis Qualified Code(s): K29.70 - Gastritis, unspecified, without bleeding Plan: Reinforced dietary restrictions Continue Omeprazole 20 mg QD Will refer her to GI for further evaluation and consideration for EGD due to her recurring symptoms depite her PPI Tx (2) Recurrent headache: Code(s): R51.9 - Headache, unspecified Category: Medical Plan: Patient reports experiencing recurrent headaches recently - thinks that these are migraine headaches although she was never formally diagnosed with migraine Reinforced avoidance for now of all potential migraine triggers Advised that if her headaches continue to persist or progress, will consider referring her to neurology for further evaluation and management (3) Spondylosis of lumbosacral spine with radiculopathy: Code(s): M47.27 - Other spondylosis with radiculopathy, lumbosacral region Category: Medical Plan: Lumbar spine MRI done in 2021 revealed (+) right subarticular protrusion at L5- S1 causing mild compression of the traversing right S1 nerve root. There is also a left foraminal protrusion at this level that compresses the exiting left L5 nerve root. No significant abnormality seen at the remaining lumbar levels She was referred to and seen by pain management last year and was sent for PT; she declined offer for SI joint injection and was advised that they do not offer chronic opioid Rx and to discuss with her PCP to consider Belbuca as an oral option for her She was also seen by neurosurgery (Dr. Borja) last year but indicated to them that she is not interested in any surgical intervention of injection Tx at the time Patient states that her low back pain has been fairly controlled over the past couple of years and she is contented with just continuing on her current Rx for now, including Gabapentin 400 mg TID, Lidocaine 5% patches QD PRN and Tramadol 50 mg TID PRN Reinforced activity and weight-lifting restrictions (4) Traumatic ecchymosis of buttock: Code(s): S30.0XXA - Contusion of lower back and pelvis, initial encounter Category: Medical Qualifiers: Encounter type: sequela Qualified Code(s): S30.0XXS - Contusion of lower back and pelvis, sequela Plan: She is advised to try applying some warm compress over her painful buttocks areas PRN for symptomatic relief Will provide her with a small amount again of Oxycodone 5 mg to take QD-BID PRN for severe pain (5) Anxiety: Code(s): F41.9 - Anxiety disorder, unspecified Category: Medical Plan: Patient states that she was doing well on Clonazepam from 1 mg to 1.5 mg QD PRN for years but is no longer able to get her Rx refilled as insurance is denying to continue covering her Rx Continue Citalopram 20 mg QD Follow up with psychiatry as scheduled (6) Smoker: Code(s): F17.200 - Nicotine dependence, unspecified, uncomplicated Category: Social Hx Plan: Patient is counseled again on complete smoking cessation States that she could not tolerate the Varenicline Rx as it was making her feel very tired and sleepy whenever she took them She also appears to have failed cold turkey Her PFTs done in July 2024 came back normal (7) Obesity (BMI 30-39.9): Code(s): E66.9 - Obesity, unspecified Category: Medical Plan: Reinforced diet/exercise as tolerated/lose weight Plan Follow up in 3 months Patient is reminded to get her preordered labs done BEFORE her next appointment Orders: Referrals Gastroenterology Referral K29.70 - Gastritis, unspecified, without bleeding Medications: Changed From oxycodone Partial Fill upon patient request. 5 mg PO BID 3 days PRN 6 tabs 0RF severe pain over left hip To oxycodone Partial Fill upon patient request. 5 mg PO .QD-BID PRN 5 tabs 0RF severe pain over left hip/buttocks 5 days Refilled omeprazole 20 mg PO DAILY 30 caps 0RF 30 days lidocaine 5% leave on most painful area for up to 12 hrs 1 patch topical DAILY 30 ea 2RF M47.27 - Other spondylosis with radiculopathy, lumbosacral region
--- OUTSIDE RECORDS SUMMARY | 2025-07-02 18:39 | XMS_ITS | Clinical Summary ---
Author Organization [employer] Address [address] [place] [address] [address] [place] [address] Care Team Providers Care Management Professor Name Role Phone Unavailable Primary Care Provider [...] patient's age to complete this topic Insurance [facility] (O) [facility] STANDARD
== END 2025-07-02 16:20 | disposition home or self-care (01) ==
LOC: HO.HMCH 15:12
PROVIDERS: PCP Internal Medicine; Visit Provider Internal Medicine
DX: K29.70 Gastritis, unspecified, without bleeding (principal); R51.9 Headache, unspecified; M47.27 Other spondylosis with radiculopathy, lumbosacral region; S30.0XXS Contusion of lower back and pelvis, sequela; F41.9 Anxiety disorder, unspecified; F17.200 Nicotine dependence, unspecified, uncomplicated; E66.9 Obesity, unspecified

== ENCOUNTER → 2025-07-02 15:11 | Outpatient (BNVA) | payer OTHER, SELFPAY | PROVIDERS: PCP Internal Medicine; Visit Provider Internal Medicine | DX: K29.70 Gastritis, unspecified, without bleeding (principal); R51.9 Headache, unspecified; S30.0XXS Contusion of lower back and pelvis, sequela; F41.9 Anxiety disorder, unspecified; F17.200 Nicotine dependence, unspecified, uncomplicated; M47.27 Other spondylosis with radiculopathy, lumbosacral region; E66.9 Obesity, unspecified; Z13.31 Encounter for screening for depression | CPT/HCPCS: 96127; 99212 ==